=== PATIENT | male | born 1960 | race Caucasian/White ===

== ENCOUNTER 2023-07-23 14:17 | Inpatient (IN) | payer MEDICAID, SELFPAY ==
[2023-07-23] VITALS (50 sets, daily range): BP systolic 78–136; BP diastolic 44–92; PULSE 60–110; RESP 12–29; TEMP 35.8–36.6; O2SAT 97–100; BMI 30.4
--- NOTE | ~2023-07-23 | US_ITS ---
EXAMINATION: US right upper quadrant DATE: 07/24/2023 20:01 INDICATION: Low abdominal pain. Dilated gallbladder. TECHNIQUE: Multiple grayscale and Doppler ultrasound images of the abdomen were obtained. COMPARISON: CT abdomen and pelvis 07/23/2023 FINDINGS: The visualized portions of the head and body of the pancreas are normal. There is diffuse h epatic steatosis. There is normal flow in main portal vein. The gallbladder is normal in size and con tains sludge. No gallstones or gallbladder wall thickening. There is no sonographic Delaney sign. The common duct is normal and measures 6 mm. IMPRESSION: 1. Diffuse hepatic steatosis. Reviewed, dictated and finalized at location E.
--- NOTE | ~2023-07-23 | CT_ITS ---
EXAMINATION: CT abdomen pelvis w con DATE: 07/23/2023 16:05 INDICATION: Lower abdominal pain. Abnormal liver tests. TECHNIQUE: Computed tomography (CT) of the abdomen and pelvis was performed with 100 mL Omnipaque-350 intravenous contrast. Automated exposure control and iterative reconstruction technique were employe d. The dose-length product was 999.78 mGy-cm. COMPARISON: None FINDINGS: Lung bases are clear. Heart size is normal. No pericardial or pleural effusion. Diffuse hepatic steat osis. Gallbladder is dilated to 4.5 cm diameter but without evident gallbladder wall thickening or pe richolecystic inflammatory stranding to suggest acute cholecystitis. No intra or extra hepatic biliar y ductal dilation. Pancreas, spleen, bilateral adrenal glands and kidneys are normal. Bowels includin g the appendix are normal. Bladder is normal. No free intraperitoneal gas or fluid. No pathologically enlarged abdominal or pelvic lymphadenopathy. Severe lumbar spondylosis. 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 IMPRESSION: 1. No acute intra-abdominal/pelvic process. 2. Diffuse hepatic steatosis. Reviewed, dictated and finalized at location A.
--- NOTE | ~2023-07-23 | US_ITS ---
EXAMINATION: US venous doppler [facility] DATE: 07/24/2023 20:08 INDICATION: Lower limb swelling and edema. TECHNIQUE: Grayscale ultrasound images without and with compression and Doppler ultrasound images of the bilateral lower extremity veins were obtained. COMPARISON: None. FINDINGS: The visualized portions of right common femoral vein, profunda (deep) femoral vein, femoral vein, pop liteal vein, peroneal veins, posterior tibial veins, and greater saphenous vein outflow are patent. The visualized portions of left common femoral vein, profunda femoral vein, femoral vein, popliteal v ein, peroneal veins, posterior tibial veins, and greater saphenous vein outflow are patent. IMPRESSION: 1. No deep venous thrombosis. Reviewed, dictated and finalized at location E.
--- NOTE | ~2023-07-23 | XR_ITS ---
EXAMINATION: XR chest 1V portable DATE: 07/23/2023 15:24 INDICATION: Shortness of breath TECHNIQUE: frontal view of the chest was obtained. COMPARISON: None FINDINGS: The lungs are clear with no focal airspace opacities, pulmonary edema, pleural effusion or pneumothor ax. The cardiomediastinal silhouette is normal. Visualized bones and soft tissues are unremarkable. IMPRESSION: 1. No acute cardiopulmonary disease. Reviewed, dictated and finalized at location A.
--- NOTE | ~2023-07-23 | CT_ITS ---
EXAMINATION: CTA chest DATE: 08/06/2023 16:20 INDICATION: low BP in arms TECHNIQUE: Computed tomography (CT) of the chest was performed with 100 mL Omnipaque-350 intravenous contrast in the arterial phase. Automated exposure control and iterative reconstruction technique wer e employed. The dose-length product was 710.55 mGy-cm. COMPARISON: None. FINDINGS: CHEST: Thoracic aorta: No significant dilation. Mild atherosclerotic calcification. No dissection. No signif icant stenosis in the proximal branch vessels. Lung parenchyma and airways: Biapical scarring and mild emphysematous change. Mild dependent atelecta sis. Air cyst in the left upper lobe with mild asymmetric wall thickening and surrounding spiculation . Patent airways. Thoracic inlet, axillae and chest wall: No thyroid or soft tissue mass. No axillary lymphadenopathy. Mediastinum: No mass or lymphadenopathy. The pulmonary arteries are well opacified and there are no p ulmonary emboli. Heart and pericardium: Normal heart size. No pericardial effusion. Coronary artery calcifications: Absent. Pleura: No effusion or mass. Upper abdomen: Gallbladder hydrops. Thoracic bones: No acute osseous finding in the chest. IMPRESSION: No thoracic aortic aneurysm or dissection. No significant arterial stenosis in the proximal branch ve ssels. Left upper lobe air cyst with irregular wall thickening and spiculation, likely inflammatory. Recomme nd follow-up low-dose noncontrast CT in 3 months to evaluate for resolution/stability. Gallbladder hydrops. Reviewed, dictated and finalized at location K. IMPRESSION: No thoracic aortic aneurysm or dissection. No significant arterial stenosis in the proximal branch vessels. Left upper lobe air cyst with irregular wall thickening and spiculation, likely inflammatory. Recommend follow-up low-dose noncontrast CT in 3 months to evalu ate for resolution/stability. Gallbladder hydrops.
--- NOTE | ~2023-07-23 | CT_ITS ---
EXAMINATION: CTA LE DATE: 07/23/2023 19:15 INDICATION: Ecchymoses in the bilateral lower extremities TECHNIQUE: Computed tomographic angiography (CTA) of the bilateral lower extremities was performed wi th 150 mL Omnipaque 350 intravenous contrast. Automated exposure control and iterative reconstruction technique were employed. The dose-length product was 1068.71 mGy-cm. COMPARISON: None. FINDINGS: PELVIC VASCULATURE: Small amount of atherosclerotic plaque without hemodynamic significant stenosis in the bilateral comm on iliac, bilateral internal iliac and proximal right external iliac arteries. No evident plaque or s tenosis in the left external iliac artery. RIGHT LOWER EXTREMITY: Minimal nonhemodynamically significant plaque along the right common femoral, superficial femoral art eries. No evident atherosclerotic plaque in the more distal right popliteal artery. The right peronea l artery becomes atretic and is unable to be visualized beyond the distal two thirds of the lower leg . There is runoff in the right anterior tibial and posterior tibial arteries into the foot. LEFT LOWER EXTREMITY: Minimal plaque along the left common femoral, superficial femoral and popliteal arteries without hemo dynamically significant stenosis. The left anterior tibial artery becomes atretic and is unable to be visualized beyond the distal two thirds of the lower leg. There is runoff in the right posterior tib ial and peroneal arteries into the foot, the latter . Resupply the dorsalis pedis artery. Impression subcutaneous edema throughout the bilateral lower extremities. IMPRESSION: 1. Small amount of scattered atherosclerotic plaque in the arteries of the pelvis in the bilateral l ower limbs with no discrete hemodynamically significant stenosis. 2. The right peroneal and left anterior tibial arteries become atretic in the distal calves with 2 ve ssel runoff into both feet provided by the right anterior tibial and posterior tibial arteries and le ft posterior tibial and peroneal arteries. Reviewed, dictated and finalized at location A. IMPRESSION: 1. Small amount of scattered atherosclerotic plaque in the arteries of the pel vis in the bilateral lower limbs with no discrete hemodynamically significant s tenosis. 2. The right peroneal and left anterior tibial arteries become atretic in the d istal calves with 2 vessel runoff into both feet provided by the right anterior tibial and posterior tibial arteries and left posterior tibial and peroneal ar teries.
--- NOTE | ~2023-07-23 | US_ITS ---
EXAMINATION:US venous doppler [place] INDICATION:Bruising and discoloration TECHNIQUE: Multiple grayscale, color flow and Doppler images of the right and left lower extremity de ep venous systems were obtained and reviewed. COMPARISON:No prior studies for comparison. FINDINGS: The common femoral, superficial femoral and popliteal veins demonstrate normal respiratory variation, augmentation and compressibility. Color flow is also seen within the posterior tibial, pe roneal, greater saphenous and profunda veins. IMPRESSION: 1: No lower extremity deep venous thrombosis. Reviewed, dictated and finalized at location B.
--- NOTE | ~2023-07-23 | US_ITS ---
EXAMINATION: US arterial ankle brachial ind DATE: 08/02/2023 09:54 INDICATION: Bruising and discoloration to the bilateral lower extremities TECHNIQUE: Segmental pressures and plethysmographic and Doppler waveforms of the brachial and lower e xtremity arteries were obtained. COMPARISON: None. FINDINGS: Right and left brachial artery pressures of 114 mm Hg and 100 mm Hg, respectively, are concordant (no rmal difference <= 30 mmHg). The right ankle-brachial index (NIKA) is 1.16 (normal >= 0.9-1.0). The right great toe-brachial index (TBI) is 0.66 (normal >= 0.65). Arterial Doppler waveforms biphasic with brisk systolic upstrokes at both right posterior tibial and dorsalis pedis arteries. The left NIKA is 1.13. The left TBI is 0.57. Arterial Doppler waveforms are triphasic at the left post erior tibial and biphasic at the left dorsalis pedis artery, both with with brisk systolic upstrokes. IMPRESSION: 1. 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 No significant arterial occlusive disease to the left lower limb with normal right NIKA and TBI. Reviewed, dictated and finalized at location A. IMPRESSION: 1. 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 No significant arterial occlusive disease to the left lower limb with normal right NIKA and TBI.
--- NOTE | 2023-07-23 14:23 | ECG_ITS ---
Measurements Intervals [place] Rate: 85 P: 33 [place]: 174 QRS: 21 QRSD: 85 T: 9 QT: 382 QTc: 455 Interpretive Statements SINUS RHYTHM BASELINE ARTIFACT LOW QRS VOLTAGE IN PRECORDIAL LEADS [QRS DEFLECTION < 1.0 mV IN CHEST LEADS] NONSPECIFIC T-WAVE ABNORMALITY BORDERLINE ECG NO PREVIOUS ECG AVAILABLE FOR COMPARISON Electronically Signed On 07-24-2023 16:44:10 CDT by Philipp Rivera M.D.
--- NOTE | 2023-07-23 14:37 | ED.GENADULT ---
HPI - General Adult General Chief complaint: Shortness of Breath/Dyspnea Stated complaint: SOB x 1 week Time Seen by Provider: 07/23/23 14:25 Source: patient, EMS and RN notes reviewed Mode of arrival: EMS History of Present Illness HPI narrative: This is a 63 year old male who presents for evaluation of hypotension and shortness of breath. PAtient states he has been having shortness of breath for 1 week. He also noticed bruising both of his legs but he is unsure of cause. He denies any trauma. He reports bilateral lower leg pain. EMS reports that found patient hypotension with diminished breath sounds. He was given duoneb, magnesium 2 gram IV push. The reports improvement in patient lung sounds. THey report patient also had brief episode of bradycardia. They gave epi 10 mcg IV push and started the patient on IV fluids. Treatments prior to arrival: other (EMS given duo neb, magnesium 2 g IVP, epi 10 mcg IVP) Related Data Home Medications Medication Instructions Recorded Confirmed No Home Medications 07/23/23 07/23/23 Allergies Allergy/AdvReac Type Severity Reaction Status Date / Time No Known Allergies Allergy Verified 07/24/23 14:10 Review of Systems Constitutional: Constitutional: Reports weakness Cardiovascular: Cardiovascular: Denies syncope, Denies rapid heart rate, Denies irregular heart rhythm, Reports leg edema and Reports dyspnea Respiratory: Respiratory: Denies chest congestion, Denies hemoptysis, Denies excessive phlegm production and Reports dyspnea Gastrointestinal: Gastrointestinal: Denies abdominal pain, Denies hematochezia, Denies diarrhea and Denies vomiting Genitourinary: Genitourinary: Denies hematuria, Reports oliguria, Denies dysuria, Denies penile discharge and Denies testicular pain Musculoskeletal: Musculoskeletal: Denies joint swelling, Denies loss of height, Reports muscle cramps and Denies muscle weakness Neurologic: Denies syncope, Denies focal weakness and Denies weakness Hematologic/Lymphatic: Hematologic/Lymphatic: Reports easy bruising PMFSH Past Medical History Medical History (Updated 07/26/23 @ 14:24 by Maritza Naik MD) No significant past medical history Patient denies significant medical history. Tobacco dependence Surgical History Surgical History (Updated 07/23/23 @ 22:04 by Adeline Brooke PA-C) No history of previous surgery Family History Family History (Updated 07/23/23 @ 22:40 by Cyndi Castillo RN) Mother Diabetes mellitus Vascular disease Cerebrovascular accident Sibling Cancer Social History Social History (Updated 07/23/23 @ 22:05 by Adeline Brooke PA-C) Social History: Surrogate decision maker: Patient does not designate a surrogate decision maker at this time. Code status: Full code. Smoking packs per day: 1 Smoking cigarettes per day: 20.0 Years smoked: 45 Smoking pack-years: 45.00 Smoking status: Current every day smoker Tobacco type: cigarettes Alcohol intake: current Drinks per week: 15 Alcohol use details: Patient drinks about a 15 pack of beer a week. Substance use: current Substance use type: marijuana Lack of Transportation: YES Lack of Food: Never True Current Housing: I Have Housing Concerned About Future Housing: YES Difficulty Paying Gas/Electric Bills: YES Difficulty Paying for Meds: YES Currently Unemployed: YES Education: High School Diploma/GED Difficulty w/ Childcare or Family Care: No Additional living arrangements comments: Patient lives in his own home in [place]. Currently without utilities is my understanding. Additional occupation/education comments: Unemployed at this time. Spiritual care concerns: No Exam Const: General: no acute distress, alert and ill appearing Orientation/consciousness: patient oriented x3 Other: disheveled HENMT: Head: normal to inspection Eyes: Pupils: Equal, round and reactive pup
[2023-07-23 14:57] LABS: Basophils Absolute Auto 0.1 K/mm3 (0.0-0.1); Basophils Percent Auto 0.6 % (0.2-1.2); Eosinophils Percent Auto 0.3 % (0-4.4); Hematocrit 26.1 % (42.0-52.0); Hemoglobin 8.6 g/dL (14.0-18.0); Immature Granulocyte Absolute 0.12 K/mm3 (0.00-0.031); Immature Granulocyte Percent A 1.4 % (0-0.5); Lymphocytes Absolute Auto 1.23 K/mm3 (0.9-3.2); Lymphocytes Percent Auto 14.3 % (18.3-44.2); Mean Corpuscular Hemoglobin 30.2 pg (26-34); Mean Corpuscular Volume 91.6 fl (80-100); Monocytes Absolute Auto 0.4 K/mm3 (0.1-0.6); Monocytes Percent Auto 4.1 % (2.6-8.5); Neutrophils Absolute Auto 6.9 K/mm3 (1.3-6.7); Neutrophils Percent Auto 79.3 % (45.5-73.1); Nucleated Red Blood Cells Perc 0.2 % (0.0-0.2); Platelet Count Result 275 k/mm3 (150-375); Red Blood Count 2.85 M/mm3 (4.6-6.20); Red Cell Distribution Width 16.6 % (11.5-14.5); White Blood Count 8.6 K/mm3 (4.5-10.0)
[2023-07-23 14:58] LABS: Alveolar/Arterial O2 Gradient 21.6 mmHg; Base Excess ABG -4.8 mEq/l (+/-2.0); Carboxyhemoglobin 0.6 % THb (0-2.0); Fractional Inspired Oxygen 21 %; HCO3 ABG 16.4 mEq/l (22.0-26.0); Methemoglobin ABG 0.2 %THb (0-1.5); Oxygen Content ABG 13.2 %vol (16.0-22.0); Oxygen Saturation ABG 98.4 % (95.0-100.0); Oxyhemoglobin 96.6 % THb (90.0-100.0); PO2 ABG 104.5 mmHg (80.0-100.0); PO2 FiO2 Ratio Arterial Blood 4.98 %; Reduced Hemoglobin 2.6 %THb (0-5.0); Total Hemoglobin 9.6 g/dL (12.0-18.0)
[2023-07-23 15:01] LABS: PCO2 ABG 19.7 mmHg (35.0-45.0); pH ABG 7.537 (7.350-7.450)
[2023-07-23 15:02] LABS: Device ROOM AIR; Modified Allen's Test Pass; Site Drawn LEFT RADIAL
[2023-07-23 15:05] LABS: Creatine Kinase 41 U/L (55-170); Magnesium 3.3 mg/dL (1.6-2.3)
[2023-07-23 15:07] LABS: Ethanol < 10 mg/dL (<10)
[2023-07-23 15:09] LABS: Alanine Aminotransferase 20 U/L (6-50); Albumin Level 2.6 g/dL (3.5-5.1); Alkaline Phosphatase 79 U/L (38-126); Anion Gap 12 mmol/L (8-16); Aspartate Amino Transferase 36 U/L (17-59); Bilirubin,Total 5.5 mg/dL (0.2-1.3); Blood Urea Nitrogen 29 mg/dL (9-20); CRP 2.4 mg/dL (<1.0); Calcium 7.4 mg/dL (8.4-10.2); Carbon Dioxide 17 mmol/L (22-30); Chloride 101 mmol/L (98-107); Estimated Glomerular Filt Rate > 60; Glucose 120 mg/dL (65-110); INR 1.3; Lactic Acid Reflex 4.7 mmol/L (0.7-2.0); Partial Thromboplastin Time 23.6 SECONDS (22.3-36.8); Potassium 3.3 mmol/L (3.4-5.0); Prothrombin Time 16.8 Seconds (11.1-14.7); Sodium 130 mmol/L (137-145)
[2023-07-23 15:18] LABS: NT Pro B Type Natriuretic Pept 215 pg/mL (19.9-100); Troponin I < 0.012 ng/mL (0.000-0.034)
[2023-07-23] MEDS: LACTATED RINGERS 1,000 ML 999 ML IV CONT ×2 (15:18→15:25)
[2023-07-23] MEDS: Please add drug allergy info to patient profile. 1 EACH XX (15:19)
[2023-07-23 15:43] LABS: SARS-CoV-2 RNA PCR Negative (Negative)
[2023-07-23] MEDS: SODIUM CHLORIDE 0.9% IV 500 ML 999 ML IV CONT (16:37)
--- NOTE | 2023-07-23 17:06 | PC.NURSE ---
Patient had 300cc coffee ground emesis x 1. AL Lr and EDP Dr. Niak made aware.
[2023-07-23] MEDS: PANTOPRAZOLE SODIUM IV 40 MG VIAL 80 MG IV PUSH (17:20)
[2023-07-23] MEDS: OCTREOTIDE ACETATE 50 MCG/ML VIAL IV PUSH (17:33)
[2023-07-23] MEDS: PANTOPRAZOLE SODIUM IV 80 MG in SODIUM CHLORIDE 0.9% IV 500 ML 50 MG IV CONT (17:39)
[2023-07-23 17:54] LABS: Reflex Lactic Acid Yes or No Add Lactic
[2023-07-23 18:42] LABS: Lactic Acid 3.4 mmol/L (0.7-2.0)
[2023-07-23 19:14] LABS: Amphetamine Screen Urine Negative (Negative); Barbiturate Screen Urine Negative (Negative); Benzodiazepines Screen Urine Negative (Negative); Cannabinoid Screen Urine Negative (Negative); Cocaine Screen Urine Negative (Negative); Methadone Screen Urine Negative (Negative); Opiate Screen Urine Negative (Negative); Phencyclidine Screen Urine Negative (Negative)
[2023-07-23 19:40] LABS: Hemoglobin 7.3 g/dL (14.0-18.0)
[2023-07-23 19:44] LABS: Appearance Urine Clear (Clear); Bacteria Urine None Seen /hpf; Bilirubin Urine 2+ (Negative); Blood Urine 1+ (Negative); Color Urine Dark Yellow (Yellow); Glucose Urine UA Negative (Negative); Ketones Urine 1+ mg/dL (Negative); Leukocyte Esterase Ur Trace LEU/UL (Negative); Need Manual Microscopic Reviewed; Nitrate Urine Positive (Negative); Protein Urine Trace mg/dL (Negative); Squamous Epithelial Cell Urine None seen /hpf (Few); WBC Urine 0-5 /hpf
[2023-07-23 19:46] LABS: Specific Grav Ur 1.073 (1.001-1.035)
[2023-07-23 19:47] LABS: Add Urine Microscopic? YES
[2023-07-23 20:34] LABS: Hematocrit 23.8 % (42.0-52.0); Hemoglobin 7.9 g/dL (14.0-18.0)
[2023-07-23 20:54] LABS: Bilirubin Direct 1.8 mg/dL (0-0.3)
[2023-07-23 20:56] LABS: Bilirubin Indirect 2.2 mg/dL (0-1.1); Iron 46 ug/dL (49-181)
[2023-07-23 20:57] LABS: Lactate Dehydrogenase 207 U/L (120-246)
[2023-07-23 21:06] LABS: Percent Iron Saturation 21 % (20-50)
[2023-07-23 21:27] LABS: Thyroid Stimulating Hormone Reflex 0.464 uIU/mL (0.465-4.68)
--- NOTE | 2023-07-23 21:45 | ADMGEN ---
This patient, Scar Ray, was admitted to IMU Room 212-01 @ 2130 Patient/family oriented to hospital policies and general routines including ID bracelet, bed and alarms, visiting hours, pain management, procedures, bathroom and other care routines, personal items, smoking policy, room service/diet, and visiting hours. Information on how to activate the Rapid Response Team has been discussed. Patient/Family are encouraged to report perceived risks to care and to ask questions if they do not understand what they are told or what they should do.
--- NOTE | 2023-07-23 21:52 | PM.IMHP ---
H&P: HPI History of Present Illness Date/Time: 07/23/23 18:30 Chief Complaint: Shortness of breath. Narrative: This is a 63-year-old male smoker with no reported medical history presented to the emergency department via EMS from home for evaluation of shortness of breath. The patient provides the following history. He has not felt well for approximately 1 week with shortness of breath (even at rest), fatigue, generalized weakness, and lightheadedness upon standing. His symptoms started about a day after he woke up to significant bruising in the left upper thigh. He does not recall how he got the bruise and specifically denies fall, trauma, injury, etc.. As the week has gone on the bruise has extended down his left leg and bruising showed up in the right leg within the following days. He called EMS because he was so weak that he could hardly stand up and felt as though he was going to pass out. According to EMS reports, the patient was hypotensive with diminished lung sounds on their arrival. They administered a DuoNeb and gave him 2 g IV push of magnesium at which time he was briefly bradycardic. They than administered epinephrine 10 mcg IV push and started the patient on IV fluids. While in the ED he began to feel nauseated and had an episode of coffee-ground emesis. He denies fever, chills, sweats, headache, sinus congestion, sore throat, cough, chest pain, pleuritic pain, abdominal pain, epigastric pain, melena, hematochezia, diarrhea, and dysuria. No history of GERD or peptic ulcers. He drinks 15 beers a week. No significant caffeine use. He smokes marijuana on occasion but denies illicit substance abuse. No NSAID use. He denies taking any medications, prescribed or [id number]. Vital signs on arrival to the ED: Pulse 81, respiratory rate 16, blood pressure 82/59, pulse ox 100% room air, temperature 97.6?. He received 3 L IV crystalloids with improvement in his blood pressures. They have been fluctuating in the high 90s to low 100s systolic since that time. Labs were significant for a WBC count of 8.6, hemoglobin 8.6, platelet 275, PT 16.8, INR 1.3, PTT 23.6, sodium 130, potassium 3.3, carbon dioxide 17, BUN 29, lactic acid 4.7, total bili 5.5, CK 41. Urine was concentrated with 1+ ketones, 1+ blood, 2+ bilirubin, trace leukocyte esterase, positive nitrates, 0 to 5 WBC, and 6 to 10 RBC. Drug screen was negative in ethyl alcohol level was undetectable. He was negative for COVID. ABG showed a pH of 7.537, pCO2 19.7, PO2 104.5, bicarb 16.4. Chest x-ray showed no acute cardiopulmonary disease. CT of the abdomen and pelvis showed no acute intra-abdominal or pelvic process and diffuse hepatic steatosis. CTA of the bilateral lower extremities did not show any acute findings or hemodynamically significant stenosis. Hemoglobin dropped to 7.3 after he an episode of coffee-ground emesis and he is being transfuse 1 unit packed red blood cells. He is being admitted in this setting for close monitoring and GI consultation. Review of Systems Review of Systems: Twelve systems were reviewed and are negative except for as per HPI. [facility] Past Medical History Medical History (Updated 07/23/23 @ 22:13 by Adeline Brooke PA-C) No significant past medical history Patient denies significant medical history. Tobacco dependence Surgical History Surgical History (Updated 07/23/23 @ 22:04 by Adeline Brooke PA-C) No history of previous surgery Family History Family History (Updated 07/23/23 @ 22:40 by Cyndi Castillo RN) Mother Diabetes mellitus Vascular disease Cerebrovascular accident Sibling Cancer Social History Social History (Updated 07/23/23 @ 22:05 by Adeline Brooke PA-C) Social History: Surrogate decision maker: Patient does not designate a surrogate decision maker at this time. Code status: Full code. Smoking packs per day: 1 Smoking cigarettes per day: 20.0 Years smoked: 45 Smoking pack-years:
[2023-07-23 23:13] LABS: Anion Gap 10 mmol/L (8-16); Blood Urea Nitrogen 25 mg/dL (9-20); Calcium 7.1 mg/dL (8.4-10.2); Carbon Dioxide 17 mmol/L (22-30); Chloride 101 mmol/L (98-107); Estimated CRCL calculation 80 ml/min; Estimated Glomerular Filt Rate > 60; Glucose 143 mg/dL (65-110); Magnesium 2.6 mg/dL (1.6-2.3); Potassium 4.5 mmol/L (3.4-5.0); Sodium 128 mmol/L (137-145)
[2023-07-23] MEDS: SODIUM CHLORIDE 0.9% IV 1,000 ML 85 ML IV CONT (23:52)
[2023-07-24] VITALS (25 sets, daily range): BP systolic 82–139; BP diastolic 47–110; PULSE 64–98; RESP 12–20; TEMP 36.3–37.1; O2SAT 93–100
[2023-07-24 00:19] LABS: Procalcitonin 0.3 ng/mL
[2023-07-24] MEDS: cefTRIAXone 2 GM/NS 100 ML 2 GM/100 ML BAG IVPB (01:56)
[2023-07-24 03:04] LABS: Free T4 Free Thyroxine Reflex 1.38 ng/dL (0.78-2.19)
[2023-07-24 04:15] LABS: Total Triiodothyronine (T3) 0.62 NG/ML (0.97-1.69)
[2023-07-24 04:35] LABS: Basophils Percent Auto 0.1 % (0.2-1.2); Hematocrit 26.8 % (42.0-52.0); Immature Granulocyte Absolute 0.07 K/mm3 (0.00-0.031); Lymphocytes Absolute Auto 0.95 K/mm3 (0.9-3.2); Lymphocytes Percent Auto 13.2 % (18.3-44.2); Mean Corpuscular HGB Conc 33.6 g/dl (32-36); Mean Corpuscular Hemoglobin 30.5 pg (26-34); Mean Corpuscular Volume 90.8 fl (80-100); Mean Platelet Volume 10.2 fl (7.4-10.4); Monocytes Absolute Auto 0.4 K/mm3 (0.1-0.6); Monocytes Percent Auto 5.6 % (2.6-8.5); Neutrophils Absolute Auto 5.8 K/mm3 (1.3-6.7); Neutrophils Percent Auto 80.1 % (45.5-73.1); Nucleated Red Blood Cells Perc 0.3 % (0.0-0.2); Platelet Count Result 243 k/mm3 (150-375); Red Blood Count 2.95 M/mm3 (4.6-6.20); Red Cell Distribution Width 16.5 % (11.5-14.5); White Blood Count 7.2 K/mm3 (4.5-10.0)
[2023-07-24 04:47] LABS: Lactic Acid Reflex 1.7 mmol/L (0.7-2.0)
[2023-07-24 04:57] LABS: Alanine Aminotransferase 17 U/L (6-50); Albumin Level 2.5 g/dL (3.5-5.1); Alkaline Phosphatase 67 U/L (38-126); Anion Gap 7 mmol/L (8-16); Aspartate Amino Transferase 34 U/L (17-59); Blood Urea Nitrogen 24 mg/dL (9-20); CRP 3.1 mg/dL (<1.0); Calcium 6.9 mg/dL (8.4-10.2); Carbon Dioxide 18 mmol/L (22-30); Chloride 104 mmol/L (98-107); Estimated CRCL calculation 80 ml/min; Estimated Glomerular Filt Rate > 60; Glucose 113 mg/dL (65-110); Magnesium 2.8 mg/dL (1.6-2.3); Sodium 129 mmol/L (137-145)
[2023-07-24] MEDS: ALBUMIN HUMAN 25% 25 GM/100 ML 100 ML IVPB (05:27)
[2023-07-24 05:32] LABS: Creatine Kinase 136 U/L (55-170)
[2023-07-24] MEDS: PANTOPRAZOLE SODIUM IV 80 MG in SODIUM CHLORIDE 0.9% IV 500 ML 50 MG IV CONT (05:42)
[2023-07-24] MEDS: THIAMINE HCL 100 MG TABLET PO (08:58)
[2023-07-24] MEDS: FOLIC ACID 1 MG TABLET PO (08:58)
[2023-07-24] MEDS: SODIUM CHLORIDE 0.9% IV 1,000 ML 500 ML IV CONT (08:58)
--- NOTE | 2023-07-24 09:46 | PM.IMPN ---
Progress Note: A&P Assessment and Plan (1) Hematemesis: Code(s): K92.0 - Hematemesis Status: Acute Assessment and Plan: Patient presents emergency room with complaints of shortness of breath. He had an episode of nausea and vomiting x1 with coffee-ground emesis. Hemoglobin 8.6 on admission and dropped to 7.3. He was hypotensive with lactic acidosis. He was given IV fluids. His baseline hemoglobin is unknown. No further episodes of nausea and vomiting. He was started on Protonix and octreotide. Will consult GI for possibly EGD. He is currently NPO. (2) Hypotension: Code(s): I95.9 - Hypotension, unspecified Status: Acute Assessment and Plan: Patient was hypotensive on admission. He had some improvement possibly related to the transfusion. Patient's again become hypotensive. MAP has been okay. He is on IV fluids. Repeat H&H is pending. Fluid bolus has been ordered. (3) Lactic acidosis: Code(s): E87.20 - Acidosis, unspecified Status: Acute Assessment and Plan: Lactic acid was 4.7 on admission. Lactic has trended downward to normal. Etiology unclear. Cultures pending. Currently on Rocephin. Follow-up on cultures. (4) Acute blood loss anemia: Code(s): D62 - Acute posthemorrhagic anemia Status: Acute Assessment and Plan: Baseline hemoglobin unclear. Patient presumably has no medical problems and no baseline hemoglobin to compare. Hemoglobin was 8.6 and dropped to 7.3 requiring transfusion. Iron studies with low iron and low TIBC and normal TSat and ferritin to suggest acute blood loss. Some of the blood loss related to the bruising to the legs and possibly from GI bleed. B12 low end of normal and folate frankly low at 2.0. Folate ordered. Suspect related to malnutrition. Replace B12. Serial HH and transfuse as needed (5) Electrolyte abnormality: Code(s): E87.8 - Other disorders of electrolyte and fluid balance, not elsewhere classified Status: Acute Assessment and Plan: Sodium low at 130 and about this and this morning. He has a non gap metabolic acidosis which could be related to lactic acidosis. He also had ketones in his urine so would consider malnutrition with ketosis. Albumin with is low as well consistent with this. He has hypocalcemia but normal if corrected for the low albumin. Potassium was low but now normal. BUN mildly elevated could be related to dehydration and/or from blood in GI tract. Monitor. Consider bicarb if not improved (6) Hyperbilirubinemia: Code(s): E80.6 - Other disorders of bilirubin metabolism Status: Acute Assessment and Plan: TBili 5.5 evenly split b/w direct and indirect. CT scan showing that the gallbladder is dilated to 4.5 cm but no evidence of gallbladder wall thickening or pericholecystic inflammatory stranding. The intra and extrahepatic biliary ducts are not dilated. Suspect hyperbilirubinemia related to blood breakdown from the hemorrhaging into the legs. Follow. Check liver quadrant ultrasound (7) Bilateral lower extremity edema: Code(s): R60.0 - Localized edema Status: Acute Assessment and Plan: Patient with edema and bruising extensively in the bilateral lower extremities. Patient denies any trauma to the area. CT of the abdomen pelvis with contrast did not show any concerning vascular abnormalities. Lower extremity CTA showed no discrete hemodynamically significant stenosis. He did have atretic right peroneal and left anterior tibial arteries in the distal calves with 2 vessel runoff into both feet. He will need aspirin and Lipitor. He was educated about the benefits of smoking cessation. TCK normal. Etiology of the edema or and bruising heart is unclear. Follow up on echo results. Follow-up on lower extremity venous Dopplers. (8) Tobacco dependence: Code(s): F17.200 - Nicotine dependence, unspecified, uncomplicated S
[2023-07-24] MEDS: PERFLUTREN LIPID MICROSPHERES 1.5 ML VIAL DILUTED TO 10 ML TOTAL VOLUME IV PUSH (10:15)
[2023-07-24 10:32] LABS: Hemoglobin 7.8 g/dL (14.0-18.0)
[2023-07-24] MEDS: CYANOCOBALAMIN INJ 1,000 MCG/ML VIAL 1000 MCG IM (11:26)
[2023-07-24] MEDS: SODIUM CHLORIDE 0.9% IV 1,000 ML 85 ML IV CONT (12:50)
[2023-07-24] MEDS: LACTATED RINGERS 1,000 ML 150 ML IV CONT (14:11)
--- NOTE | 2023-07-24 14:15 | WPDGICN ---
Assessment and Plan Assessment and plan (1) Hematemesis: Code(s): K92.0 - Hematemesis Status: Acute Assessment and Plan: Patient experienced hematemesis on presentation to the emergency room. EGD will be performed to evaluate more thoroughly. Patient currently maintained on pantoprazole. Hemoglobin has been stable but is decline with the value of 7.8 at present. (2) Anemia: Code(s): D64.9 - Anemia, unspecified Status: Acute Assessment and Plan: Anemia that is normochromic normocytic etiology unclear. Hemolysis cannot be excluded given the elevated bilirubin. EGD will be performed. Consider Hematology evaluation. (3) Alcoholism: Code(s): F10.20 - Alcohol dependence, uncomplicated Status: Acute Assessment and Plan: Alcohol dependence noted. Patient may be reliant on alcohol use continue to monitor watch for signs of withdrawal. (4) Hyperbilirubinemia: Code(s): E80.6 - Other disorders of bilirubin metabolism Status: Acute Assessment and Plan: Elavil a bilirubin appears nonspecific. No signs of obstruction. Other liver parameters are normal. Etiology is unclear but need to exclude hemolysis. Will continue monitor follow closely. (5) Ecchymosis: Code(s): R58 - Hemorrhage, not elsewhere classified Status: Acute Assessment and Plan: Ecchymosis on both legs patient gives no history of trauma but this may account for some degree of his anemia. GI Consult Note Consult date/time: 07/24/23 14:15 Reason for consult: hematemesis. HPI: Scar Ray is a 63 year old male I am asked to see at the request of the hospitalist service. Patient apparently has been increasing malaise over the last week or 2 because of shortness of breath went to the emergency room. In the emergency room noted to have significant ecchymosis across the lower extremities. While in the emergency room he had set of bout of hematemesis vomited coffee-ground reddish material emesis of about 300cc. For this reason EGD is requested. Patient is noted to have a stable anemia. Patient was noted to have elevated bilirubin on presentation as well. Other transaminases and liver tests were found to be normal. Ultrasound reveals no gallstones nor indication for obstruction. Patient denies any prior history of ulcer disease. He has never previously had hematemesis. He denies abdominal pain. He denies any trauma to his lower extremities. Family history is noncontributory. Review of Systems Review of Systems: Review of systems noncontributory. [facility] Past Medical History Medical History (Updated 07/24/23 @ 14:18 by Hollis De La Garza MD) No significant past medical history Patient denies significant medical history. Tobacco dependence Surgical History Surgical History (Updated 07/23/23 @ 22:04 by Adeline Brooke PA-C) No history of previous surgery Family History Family History (Updated 07/23/23 @ 22:40 by Cyndi Castillo RN) Mother Diabetes mellitus Vascular disease Cerebrovascular accident Sibling Cancer Social History Social History (Updated 07/23/23 @ 22:05 by Adeline Brooke PA-C) Social History: Surrogate decision maker: Patient does not designate a surrogate decision maker at this time. Code status: Full code. Smoking packs per day: 1 Smoking cigarettes per day: 20.0 Years smoked: 45 Smoking pack-years: 45.00 Smoking status: Current every day smoker Tobacco type: cigarettes Alcohol intake: current Drinks per week: 15 Alcohol use details: Patient drinks about a 15 pack of beer a week. Substance use: current Substance use type: marijuana Lack of Transportation: YES Lack of Food: Never True Current Housing: I Have Housing Concerned About Future Housing: YES Difficulty Paying Gas/Electric Bills: YES Difficulty Paying for Meds: YES Currently Unemployed: YES Ed
--- NOTE | 2023-07-24 14:34 | WPDANESEPPF ---
Anes - Initial Pre Proc Eval Procedure: Operation Date: 07/24/23 15:30 Proposed Procedures p Esophagogastroduodenoscopy - Hollis De La Garza MD Date/Time: 07/24/23 14:35 Surgeon: Jeff Martin MD Pre Op Diagnosis: hemetmesis, Anemia Patient Data Age: 63 Gender: M Height: 1.73 m Weight: 85.6 kg Last Vital Signs Temp 97.7 F 07/24/23 14:14 Pulse 71 07/24/23 14:14 Resp 18 07/24/23 14:14 BP 100/59 L 07/24/23 14:14 Pulse Ox 93 07/24/23 14:14 O2 Del Method Room Air 07/24/23 14:14 Allergies Allergy/AdvReac Type Severity Reaction Status Date / Time No Known Allergies Allergy Verified 07/24/23 14:10 Home Medications Medication Instructions Recorded Confirmed Type No Home Medications 07/23/23 07/23/23 History Laboratory Tests 07/23/23 07/23/23 07/23/23 14:45 14:54 17:36 WBC 8.6 K/mm3 (4.5-10.0) RBC 2.85 L M/mm3 (4.6-6.20) Hgb 8.6 L g/dL (14.0-18.0) Hct 26.1 L % (42.0-52.0) MCV 91.6 fl (80-100) MCH 30.2 pg (26-34) MCHC 33.0 g/dl (32-36) RDW 16.6 H % (11.5-14.5) Plt Count 275 k/mm3 (150-375) MPV 10.0 fl (7.4-10.4) Immature Gran % (Auto) 1.4 H % (0-0.5) Neut % (Auto) 79.3 H % (45.5-73.1) Lymph % (Auto) 14.3 L % (18.3-44.2) [place] % (Auto) 4.1 % (2.6-8.5) Eos % (Auto) 0.3 % (0-4.4) Baso % (Auto) 0.6 % (0.2-1.2) Lymph # (Auto) 1.23 K/mm3 (0.9-3.2) [place] # (Auto) 0.4 K/mm3 (0.1-0.6) Eos # (Auto) 0.0 K/mm3 (0-0.3) Baso # (Auto) 0.1 K/mm3 (0.0-0.1) Abs Immat Gran (auto) 0.12 H K/mm3 (0.00-0.031) Absolute Neuts (auto) 6.9 H K/mm3 (1.3-6.7) Absolute Nucleated RBC 0.0 K/mm3 (0.0-0.012) Nucleated RBC % 0.2 % (0.0-0.2) Haptoglobin PT 16.8 H Seconds (11.1-14.7) INR 1.3 APTT 23.6 SECONDS (22.3-36.8) Puncture Site Left radial ABG pH 7.537 H* (7.350-7.450) ABG pCO2 19.7 L* mmHg (35.0-45.0) ABG pO2 104.5 H mmHg (80.0-100.0) ABG PO2/FiO2 Ratio 4.98 % ABG HCO3 16.4 L mEq/l (22.0-26.0) ABG O2 Saturation 98.4 % (95.0-100.0) ABG O2 Content 13.2 L %vol (16.0-22.0) ABG Base Excess -4.8 mEq/l (+/-2.0) A-a Gradient 21.6 mmHg Oxyhemoglobin 96.6 % THb (90.0-100.0) Carboxyhemoglobin 0.6 % THb (0-2.0) Methemoglobin 0.2 %THb (0-1.5) Reduced Hemoglobin 2.6 %THb (0-5.0) Total Hemoglobin 9.6 L g/dL (12.0-18.0) O2 Delivery Device Room air O2 Liters/Min 0.0 LPM FiO2 21 % Sodium 130 L mmol/L (137-145) Potassium 3.3 L mmol/L (3.4-5.0) Chloride 101 mmol/L (98-107) Carbon Dioxide 17 L mmol/L (22-30) Anion Gap 12 mmol/L (8-16) BUN 29 H mg/dL (9-20) Creatinine 0.80 mg/dL (0.7-1.3) Estim Creat Clear Calc Not Reportable Estimated GFR > 60 (59 - ) Glucose 120 H mg/dL (65-110) Lactic Acid 4.7 H* mmol/L (0.7-2.0) Calcium 7.4 L mg/dL (8.4-10.2) Magnesium 3.3 H mg/dL (1.6-2.3) Iron TIBC % Saturation Ferritin Total Bilirubin 5.5 H mg/dL (0.2-1.3) Direct Bilirubin Indirect Bilirubin AST 36 U/L (17-59) ALT 20 U/L (6-50) Alkaline Phosphatase 79 U/L (38-126) Lactate Dehydrogenase Total Creatine Kinase 41 L U/L (55-170) Troponin I < 0.012 ng/mL (0.000-0.034) C-Reactive Protein 2.4 H mg/dL (<1.0) NT-Pro-B Natriuret Pep 215 H pg/mL (19.9-100) Total Protein
--- NOTE | 2023-07-24 14:42 | IVDEFINITY ---
Prior to administration of IV Definity the patient was educated on the risks and benefits of the imaging enhancing agent including potential adverse side effects. The patient verbalized understanding. Allergies were verified. No exclusion criteria were identified and at least one of the following inclusion criteria were met: 1) physician request, 2) patient technically difficult to image (per the [place] [employer]chocardi[employer] guidelines of two or more segments not discernable within the apical view), or 3) questionable left ventricular function. ?
[2023-07-24 18:35] LABS: Hematocrit 28.4 % (42.0-52.0); Hemoglobin 8.8 g/dL (14.0-18.0)
[2023-07-24] MEDS: PANTOPRAZOLE SODIUM IV 40 MG VIAL IV PUSH (21:06)
--- NOTE | 2023-07-24 22:22 | ECHO_ITS ---
Patient Info Name: Scar Ray Age: 63 years : 1960 Gender: Male Ht: 68 in Wt: 188 lbs BSA: 2.04 m2 HR: 66 bpm BP: 85 / 51 mmHg Heart Rhythm: Sinus Rhythm Technical Quality: Fair Exam Date: 07/24/2023 9:36 AM Exam Location: [facility] Patient Status: Inpatient Admit Date: 07/23/2023 Staff Ordering Physician: Adeline Brooke PA-C Energy Project Engineer: Gita Roberts RDCS Attending Provider: Ruben Martin MD Referring Physician: Mendy DE LA ROSA; Exam Type: CA echo dop color flow w con Study Info Indications - Edema R06.02 - Shortness of breath Complete two-dimensional, color flow and Doppler transthoracic echocardiogram is performed with contrast to opacify the left ventricle and to improve the deliniation of the left ventricle endocardial borders. Contrast/Agitated Saline Contrast/Ag. Saline: Definity Amount: 2.00 ml Administered By: Gita Roberts RDCS Existing IV Access: Yes IV Access Condition: patent with no signs of infiltration Summary 1. Left ventricular chamber dimension is normal. 2. Left ventricular systolic function is hyperdynamic, estimated at >70%. 3. There is no increased left ventricular wall thickness. 4. The left ventricular diastolic function is normal. 5. Left atrial chamber dimension is mildly enlarged. 6. There is no aortic valve stenosis. 7. There is trace mitral valve regurgitation. 8. There is mild tricuspid valve regurgitation. 9. No pulmonary hypertension, estimated pulmonary arterial systolic pressure is 30 mmHg. Left Ventricle Left ventricular chamber dimension is normal. Left ventricular systolic function is hyperdynamic, estimated at >70%. There is no increased left ventricular wall thickness. The left ventricular diastolic function is normal. Right Ventricle Right ventricular chamber dimension is normal. Right ventricular systolic function is normal. Left Atria Left atrial chamber dimension is mildly enlarged. Right Atria Right atrial chamber dimension is normal. Aortic Valve The aortic valve is trileaflet. There is no aortic valve stenosis. There is no aortic valve regurgitation. Pulmonic Valve The pulmonic valve is not well visualized. There is trace pulmonic regurgitation. Mitral Valve The mitral valve has normal leaflets. There is trace mitral valve regurgitation. Tricuspid Valve The tricuspid valve leaflets are normal. There is mild tricuspid valve regurgitation. No pulmonary hypertension, estimated pulmonary arterial systolic pressure is 30 mmHg. Pericardium/Pleural The pericardium appears normal. There is trivial pericardial effusion. Aorta The aortic root size at the sinus of Valsalva is normal. The prox ascending aorta size is normal. There is mild aortic atherosclerosis. Left Ventricular Outflow Tract Name Value Normal LVOT 2D LVOT Diameter 2.04 cm LVOT Doppler LVOT Peak Gradient 7 mmHg LVOT Mean Gradient 3 mmHg LVOT VTI 25.13 cm LVOT VTI/AV VTI Ratio 0.80 LVOT Stroke Volume 82.48 ml LVOT
--- NOTE | 2023-07-24 22:39 | P.PNCROSS_ITS ---
Event Note Event Note Event Note: Received a call from the patient's nurse. He has Gram-positive cocci in cluste rs which were isolated from and anaerobic bottle in 1 set of blood cultures. Chart reviewed. Suspect contaminant however will give a 1 time dose of 1500 mg vancomycin pending identification and MRSA swab.
[2023-07-24] MEDS: VANCOMYCIN 1,250 MG/NS 250 ML 1,250 MG/250 ML BAG 166.67 MG IVPB (23:35)
[2023-07-25] VITALS (17 sets, daily range): BP systolic 97–116; BP diastolic 46–57; PULSE 66–96; RESP 18–22; TEMP 35.7–36.7; O2SAT 91–97
[2023-07-25] MEDS: VANCOMYCIN 1,000 MG/NS 250 ML 1,000 MG/250 ML BAG 250 MG IVPB (01:11)
[2023-07-25] MEDS: cefTRIAXone 2 GM/NS 100 ML 2 GM/100 ML BAG IVPB (02:11)
[2023-07-25 05:19] LABS: Basophils Percent Auto 0.8 % (0.2-1.2); Eosinophils Percent Auto 0.8 % (0-4.4); Hematocrit 22.9 % (42.0-52.0); Hemoglobin 7.6 g/dL (14.0-18.0); Immature Granulocyte Absolute 0.04 K/mm3 (0.00-0.031); Immature Granulocyte Percent A 0.8 % (0-0.5); Lymphocytes Absolute Auto 1.18 K/mm3 (0.9-3.2); Lymphocytes Percent Auto 22.5 % (18.3-44.2); Mean Corpuscular HGB Conc 33.2 g/dl (32-36); Mean Corpuscular Hemoglobin 30.6 pg (26-34); Mean Corpuscular Volume 92.3 fl (80-100); Mean Platelet Volume 9.9 fl (7.4-10.4); Monocytes Absolute Auto 0.2 K/mm3 (0.1-0.6); Neutrophils Absolute Auto 3.7 K/mm3 (1.3-6.7); Neutrophils Percent Auto 71.1 % (45.5-73.1); Nucleated Red Blood Cells Perc 0.4 % (0.0-0.2); Platelet Count Result 204 k/mm3 (150-375); Red Blood Count 2.48 M/mm3 (4.6-6.20); White Blood Count 5.2 K/mm3 (4.5-10.0)
[2023-07-25 05:38] LABS: Alanine Aminotransferase 16 U/L (6-50); Albumin Level 2.2 g/dL (3.5-5.1); Alkaline Phosphatase 54 U/L (38-126); Anion Gap 6 mmol/L (8-16); Aspartate Amino Transferase 33 U/L (17-59); Bilirubin,Total 4.2 mg/dL (0.2-1.3); Blood Urea Nitrogen 18 mg/dL (9-20); CRP 2.5 mg/dL (<1.0); Calcium 6.6 mg/dL (8.4-10.2); Carbon Dioxide 19 mmol/L (22-30); Chloride 109 mmol/L (98-107); Creatine Kinase 110 U/L (55-170); Estimated CRCL calculation 102 ml/min; Estimated Glomerular Filt Rate > 60; Glucose 78 mg/dL (65-110); Magnesium 2.4 mg/dL (1.6-2.3); Potassium 3.2 mmol/L (3.4-5.0); Sodium 134 mmol/L (137-145)
[2023-07-25] MEDS: SODIUM CHLORIDE 0.9% IV 1,000 ML 85 ML IV CONT (08:15)
[2023-07-25] MEDS: FOLIC ACID 1 MG TABLET PO (09:05)
[2023-07-25] MEDS: PANTOPRAZOLE SODIUM IV 40 MG VIAL IV PUSH ×2 (09:05→20:29)
[2023-07-25] MEDS: THIAMINE HCL 100 MG TABLET PO (09:05)
[2023-07-25] MEDS: CYANOCOBALAMIN 1,000 MCG TABLET 1000 MCG PO (09:05)
--- NOTE | 2023-07-25 09:05 | WPDANESPN ---
Anes - Prog Note Post-Op Date/Time: 07/25/23 09:05 Cardiovascular status: normal Respiratory status: normal Airway patency: baseline Mental status: baseline Post-Op hydration status: normal Vital Signs: Last Vital Signs Temp 35.7 C L 07/25/23 07:58 Pulse 83 07/25/23 07:58 Resp 20 07/25/23 07:58 BP 109/52 L 07/25/23 07:58 Pulse Ox 92 07/25/23 07:58 O2 Del Method Room Air 07/25/23 04:00 Pain Score (VAS): 11/18 I/O: Intake & Output 07/24/23 07/25/23 07/25/23 23:59 07:59 15:59 Intake Total 840 600 Output Total 450 950 Balance 390 -350 Laboratory Tests 07/25/23 04:50 07/25/23 04:50 07/24/23 07/24/23 07/25/23 10:24 18:05 04:50 WBC 5.2 RBC 2.48 L Hgb 7.8 L 8.8 L 7.6 L Hct 24.0 L 28.4 L 22.9 L MCV 92.3 MCH 30.6 MCHC 33.2 RDW 17.0 H Plt Count 204 MPV 9.9 Immature Gran % (Auto) 0.8 H Neut % (Auto) 71.1 Lymph % (Auto) 22.5 [place] % (Auto) 4.0 Eos % (Auto) 0.8 Baso % (Auto) 0.8 Lymph # (Auto) 1.18 [place] # (Auto) 0.2 Eos # (Auto) 0.0 Baso # (Auto) 0.0 Abs Immat Gran (auto) 0.04 H Absolute Neuts (auto) 3.7 Absolute Nucleated RBC 0.0 Nucleated RBC % 0.4 H Sodium 134 L Potassium 3.2 L Chloride 109 H Carbon Dioxide 19 L Anion Gap 6 L BUN 18 Creatinine 0.70 Estim Creat Clear Calc 102 Estimated GFR > 60 Glucose 78 Calcium 6.6 L Phosphorus 2.0 L Magnesium 2.4 H Total Bilirubin 4.2 H AST 33 ALT 16 Alkaline Phosphatase 54 Total Creatine Kinase 110 C-Reactive Protein 2.5 H Total Protein 5.0 L Albumin 2.2 L Microbiology 07/23/23 14:45 Blood Blood Culture - Preliminary Gram positive cocci cluster is 07/23/23 14:45 Blood Blood Culture - Preliminary Post-procedural complaints: none Patient Feedback: Patient satisfied with anesthetic care.
[2023-07-25] MEDS: POTASSIUM CHLORIDE 20 MEQ PACKET (FOR LIQUID) 40 MEQ PO (09:06)
[2023-07-25] MEDS: POTASSIUM/PHOSPHORUS/SODIUM 1.5 GM PACKET 1 PACKET PO (09:06)
[2023-07-25 10:45] LABS: Hematocrit 26.1 % (42.0-52.0); Hemoglobin 8.4 g/dL (14.0-18.0)
--- NOTE | 2023-07-25 14:37 | WPDGIPROGNO ---
Progress Note: A&P Assessment and Plan (1) Gastritis: Code(s): K29.70 - Gastritis, unspecified, without bleeding Status: Acute Assessment and Plan: Patient with gastritis and esophagitis on recent endoscopy. He also had superficial ulcers in the antral area of the stomach. Histology pending. Grossly appears benign. Plan to keep on PPI therapy advance to bland diet. Follow-up EGD suggested in 2 months. (2) Ulcerative esophagitis: Code(s): K22.10 - Ulcer of esophagus without bleeding Status: Acute (3) Ecchymosis: Code(s): R58 - Hemorrhage, not elsewhere classified Status: Acute Assessment and Plan: X chemosis likely contributes to patient's anemia. (4) Alcoholism: Code(s): F10.20 - Alcohol dependence, uncomplicated Status: Acute (5) Hyperbilirubinemia: Code(s): E80.6 - Other disorders of bilirubin metabolism Status: Acute Assessment and Plan: Elevated bilirubin with normal LFTs. Concern over possible hemolysis. Need to follow this. Consider Hematology evaluation. Subjective Date/time seen: 07/25/23 14:37 Interval history: Patient alert more comfortable this morning. Tolerating diet. He states he is not very hungry. Denies abdominal pain but denies any bleeding. Review of Systems Review of Systems: Review of systems noncontributory. Exam Narrative: Physical exam reveals patient be alert comfortable rest he is anicteric. Lungs are clear. Heart without murmur. Abdomen bowel sounds present soft nontender. Objective Data Vital Signs Vital Signs: Vital Signs - 24 hr 07/24/23 15:30 07/24/23 15:40 07/24/23 15:50 Temperature Pulse Rate 66 66 68 Pulse Rate [Bilateral Pedal (Dorsalis Pedis)] Respiratory Rate 16 16 18 Blood Pressure 139/110 H 102/55 L 101/55 L Pulse Oximetry 100 100 100 Oxygen Delivery Room Air Room Air Room Air 07/24/23 16:09 07/24/23 16:00 07/24/23 16:00 Temperature 97.8 F Pulse Rate 98 66 Pulse Rate [Bilateral Pedal (Dorsalis Pedis)] Respiratory Rate 20 Blood Pressure 103/66 Pulse Oximetry 93 Oxygen Delivery Room Air 07/24/23 18:00 07/24/23 18:59 07/24/23 21:10 Temperature 97.6 F Pulse Rate 85 72 Pulse Rate [Bilateral Pedal (Dorsalis Pedis)] Respiratory Rate 18 Blood Pressure 84/47 L 97/49 L Pulse Oximetry 93 Oxygen Delivery 07/24/23 20:00 07/24/23 20:00 07/24/23 22:00 Temperature Pulse Rate 69 74 Pulse Rate [Bilateral Pedal (Dorsalis Pedis)] Respiratory Rate Blood Pressure Pulse Oximetry 93 Oxygen Delivery Room Air 07/25/23 00:00 07/25/23 00:00 07/25/23 00:00 Temperature 97.6 F Pulse Rate 82 70 Pulse Rate [Bilateral Pedal (Dorsalis Pedis)] Respiratory Rate 18 Blood Pressure 98/46 L Pulse Oximetry 92 92 Oxygen Delivery Room Air 07/25/23 02:47 07/25/23 02:00 07/25/23 04:00 Temperature 97.5 F L Pulse Rate 75 69 66 Pulse Rate [Bilateral Pedal (Dorsalis Pedis)] Respiratory Rate 18 Blood Pressure 97/57 L Pulse Oximetry 93 Oxygen Delivery 07/25/23 04:00 07/25/23 06:00 07/25/23 07:58 Temperature 96.3 F L Pulse Rate 67 83 Pulse Rate [Bilateral Pedal (Dorsalis Pedis)] Respiratory Rate 20 Blood Pressure 109/52 L Pulse Oximetry 93 92 Oxygen Delivery Room Air 07/25/23 08:00 07/25/23 08:00 07/25/23 10:00 Temperature Pulse Rate 96 90 Pulse Rate [Bilateral Pedal (Dorsalis Pedis)] 83 Respiratory Rate Blood Pressure Pulse Oximetry Oxygen Delivery 07/25/23 11:44 07/25/23 12:00 07/25/23 13:28 Temperature 96.2 F L Pulse Rate 92 91 Pulse Rate [Bilateral Pedal (Dorsalis Pedis)] Respiratory Rate 22 H Blood Pressure 116/56 L Pulse Oximetry 97 91 Oxygen Delivery Room Air Intake/Output Intake/Output: Intake & Output 07/22/23 07/23/23 07/24/23 07/25/23 23:59 23:59 23:59 23:59 Intake Total 3705 5663 2440 Outp
--- NOTE | 2023-07-25 16:24 | PM.IMPN ---
Progress Note: A&P Assessment and Plan (1) Ulcerative esophagitis: Code(s): K22.10 - Ulcer of esophagus without bleeding Status: Acute Assessment and Plan: Patient presents emergency room with complaints of shortness of breath. He had an episode of nausea and vomiting x1 with coffee-ground emesis in the ED. Hemoglobin 8.6 on admission and dropped to 7.3. He was hypotensive with lactic acidosis. He was given IV fluids and 1U PRBC. His baseline hemoglobin is unknown. No further episodes of nausea and vomiting. He was started on Protonix and octreotide. GI consulted and patient underwent EGD 07/24 showing severe ulcerative esophagitis, diffuse gastritis and several superficial gastric ulcers. Biopsy taken. Continue Protonix. Appreciate GI input. (2) Hypotension: Code(s): I95.9 - Hypotension, unspecified Status: Acute Assessment and Plan: Patient was hypotensive on admission. He had some improvement possibly related to the transfusion. Patient's again become hypotensive. MAP has been okay. Fluid bolus given. BP improved. Follow. Stop IV fluids today. (3) Lactic acidosis: Code(s): E87.20 - Acidosis, unspecified Status: Acute Assessment and Plan: Lactic acid was 4.7 on admission. Lactic has trended downward to normal. UA noted. UCx pending BCx growing GPC in clusters from anaerobic bottle only. Currently on Rocephin. Vanco added over night and continued but PharmD ID recommended abx be stopped and resumed if Cx lori positive. Contineu Rocephiin. Follow-up on cultures. (4) Bacteremia: Code(s): R78.81 - Bacteremia Status: Acute Assessment and Plan: As above (5) Acute blood loss anemia: Code(s): D62 - Acute posthemorrhagic anemia Status: Acute Assessment and Plan: Baseline hemoglobin unclear. Patient presumably has no medical problems and no baseline hemoglobin to compare. Hemoglobin was 8.6 and dropped to 7.3 requiring transfusion. Iron studies with low iron and low TIBC and normal TSat and ferritin to suggest acute blood loss. Acute blood loss related to the extensive bruising to the legs and from GI bleed. B12 low end of normal and folate frankly low at 2.0. Folate ordered. Suspect related to malnutrition. Replace B12. Serial HH and transfuse as needed (6) Electrolyte abnormality: Code(s): E87.8 - Other disorders of electrolyte and fluid balance, not elsewhere classified Status: Acute Assessment and Plan: Sodium low at 130 now better at 134. Non gap metabolic acidosis which could be related to lactic acidosis. He also had ketones in his urine so would consider malnutrition with ketosis. Serum bicarb slowly improving, Hypocalcemia but normal if corrected for the low albumin. low Albumin consistent with malnutrition. Potassium was low so will replace Follow (7) Hyperbilirubinemia: Code(s): E80.6 - Other disorders of bilirubin metabolism Status: Acute Assessment and Plan: TBili 5.5 evenly split b/w direct and indirect. CT scan showing that the gallbladder is dilated to 4.5 cm but no evidence of gallbladder wall thickening or pericholecystic inflammatory stranding. The intra and extrahepatic biliary ducts are not dilated. RUQ US showing diffuse heaptic steatosis but duct or GB findings. Suspect hyperbilirubinemia related to blood breakdown from the hemorrhaging into the legs. Follow. (8) Bilateral lower extremity edema: Code(s): R60.0 - Localized edema Status: Acute Assessment and Plan: Patient with edema and bruising extensively in the bilateral lower extremities. Patient denies any trauma to the area. CT of the abdomen pelvis with contrast did not show any concerning vascular abnormalities. Lower extremity CTA showed no discrete hemodynamically significant stenosis. He did have atretic right peroneal and left anterior tibial arteries in the dis
[2023-07-25 17:12] LABS: Hematocrit 25.2 % (42.0-52.0); Hemoglobin 8.3 g/dL (14.0-18.0)
--- NOTE | 2023-07-25 21:55 | PC.NURSE ---
This patient, Scar Ray, was transferred to [facility] on 07/25/23 at 2143. Personal belongings sent with patient. Report given to Serafin HO. Appropriate documentation sent with patient.
--- NOTE | 2023-07-25 22:48 | PC.NURSE ---
Patient arrived from IMU at 2140 and oriented to the room. Patient states understanding at this time.
[2023-07-25 23:11] LABS: Hematocrit 23.6 % (42.0-52.0); Hemoglobin 7.6 g/dL (14.0-18.0)
[2023-07-26] MEDS: cefTRIAXone 2 GM/NS 100 ML 2 GM/100 ML BAG IVPB (00:04)
[2023-07-26 05:16] LABS: Basophils Percent Auto 0.6 % (0.2-1.2); Eosinophils Absolute Auto 0.1 K/mm3 (0-0.3); Eosinophils Percent Auto 1.7 % (0-4.4); Hematocrit 24.1 % (42.0-52.0); Hemoglobin 7.9 g/dL (14.0-18.0); Immature Granulocyte Absolute 0.05 K/mm3 (0.00-0.031); Immature Granulocyte Percent A 1.1 % (0-0.5); Lymphocytes Absolute Auto 1.08 K/mm3 (0.9-3.2); Lymphocytes Percent Auto 23.1 % (18.3-44.2); Mean Corpuscular HGB Conc 32.8 g/dl (32-36); Mean Corpuscular Hemoglobin 30.5 pg (26-34); Mean Corpuscular Volume 93.1 fl (80-100); Mean Platelet Volume 9.5 fl (7.4-10.4); Monocytes Absolute Auto 0.2 K/mm3 (0.1-0.6); Monocytes Percent Auto 5.1 % (2.6-8.5); Neutrophils Absolute Auto 3.2 K/mm3 (1.3-6.7); Neutrophils Percent Auto 68.4 % (45.5-73.1); Nucleated Red Blood Cells Perc 0.6 % (0.0-0.2); Platelet Count Result 191 k/mm3 (150-375); Red Blood Count 2.59 M/mm3 (4.6-6.20); Red Cell Distribution Width 17.9 % (11.5-14.5); White Blood Count 4.7 K/mm3 (4.5-10.0)
[2023-07-26 05:29] LABS: Alanine Aminotransferase 19 U/L (6-50); Albumin Level 2.2 g/dL (3.5-5.1); Alkaline Phosphatase 57 U/L (38-126); Anion Gap 3 mmol/L (8-16); Aspartate Amino Transferase 45 U/L (17-59); Bilirubin,Total 5.2 mg/dL (0.2-1.3); Blood Urea Nitrogen 14 mg/dL (9-20); Calcium 6.8 mg/dL (8.4-10.2); Carbon Dioxide 20 mmol/L (22-30); Chloride 110 mmol/L (98-107); Estimated CRCL calculation 102 ml/min; Estimated Glomerular Filt Rate > 60; Glucose 85 mg/dL (65-110); Phosphorus 2.2 mg/dL (2.5-4.5); Potassium 3.4 mmol/L (3.4-5.0); Sodium 133 mmol/L (137-145)
--- NOTE | 2023-07-26 07:44 | WPDGIPROGNO ---
Progress Note: A&P Assessment and Plan (1) Gastric ulcer: Code(s): K25.9 - Gastric ulcer, unspecified as acute or chronic, without hemorrhage or perforation Status: Acute Assessment and Plan: Patient with gastric ulcer, gastritis and esophagitis on endoscopy. Patient improving with pantoprazole. Plan to continue this medication post discharge. Follow-up EGD advised in 2-3 months to document healing. Patient should avoid alcohol. [place] diet is encouraged. (2) Ulcerative esophagitis: Code(s): K22.10 - Ulcer of esophagus without bleeding Status: Acute Assessment and Plan: Long-term pantoprazole or similar PPI advised. Anti-reflux measures suggested. [place] diet initially may be beneficial. No additional bleeding noted at this time. Okay to discharge from GI perspective. (3) Ecchymosis: Code(s): R58 - Hemorrhage, not elsewhere classified Status: Acute Assessment and Plan: Ecchymoses on lower extremity of uncertain etiology. Patient denies trauma. This may account for his elevated bilirubin (4) Alcoholism: Code(s): F10.20 - Alcohol dependence, uncomplicated Status: Acute (5) Hyperbilirubinemia: Code(s): E80.6 - Other disorders of bilirubin metabolism Status: Acute Assessment and Plan: elevated bilirubin may be from re- absorption of his hematoma. Subjective Date/time seen: 07/26/23 07:44 Interval history: Patient alert comfortable this morning. Denies abdominal pain. Tolerating regular diet. Review of Systems Review of Systems: Review of systems is noncontributory. Exam Narrative: Physical exam reveals patient be alert. Vital signs stable. Comfortable at rest. HEENT exam reveals no icterus. Lungs are clear. Heart without murmur. Abdomen bowel sounds present soft nontender with no organomegaly. Objective Data Vital Signs Vital Signs: Vital Signs - 24 hr 07/25/23 07:58 07/25/23 08:00 07/25/23 08:00 Temperature 96.3 F L Pulse Rate 83 96 Pulse Rate [Bilateral Pedal (Dorsalis Pedis)] 83 Respiratory Rate 20 Blood Pressure 109/52 L Pulse Oximetry 92 Oxygen Delivery 07/25/23 10:00 07/25/23 11:44 07/25/23 12:00 Temperature 96.2 F L Pulse Rate 90 92 91 Pulse Rate [Bilateral Pedal (Dorsalis Pedis)] Respiratory Rate 22 H Blood Pressure 116/56 L Pulse Oximetry 97 Oxygen Delivery 07/25/23 13:28 07/25/23 15:54 07/25/23 14:00 Temperature 96.9 F L Pulse Rate 83 88 Pulse Rate [Bilateral Pedal (Dorsalis Pedis)] Respiratory Rate 20 Blood Pressure 105/54 L Pulse Oximetry 91 97 Oxygen Delivery Room Air 07/25/23 16:00 07/25/23 19:38 07/25/23 20:00 Temperature 97.4 F L Pulse Rate 80 80 Pulse Rate [Bilateral Pedal (Dorsalis Pedis)] Respiratory Rate 20 Blood Pressure 104/55 L Pulse Oximetry 91 91 Oxygen Delivery Room Air 07/25/23 22:56 Temperature 98.1 F Pulse Rate 84 Pulse Rate [Bilateral Pedal (Dorsalis Pedis)] Respiratory Rate 20 Blood Pressure 102/50 L Pulse Oximetry 95 Oxygen Delivery Intake/Output Intake/Output: Intake & Output 07/23/23 07/24/23 07/25/23 07/26/23 23:59 23:59 23:59 23:59 Intake Total 2500 3640 4030 600 Output Total 300 1550 1550 1350 Balance 2200 2090 2480 -750 Meds/Results Medications: Active Medications Generic Name Dose Route Start Last Admin Trade Name Freq PRN Reason Stop Dose Admin Cyanocobalamin 1,000 mcg 07/25/23 09:00 07/25/23 09:05 Cyanocobalamin 1,000 Mcg Tablet PO 1,000 mcg QAM JEOVANY Administration Folic Acid 1 mg 07/24/23 09:00 07/25/23 09:05 Folic Acid 1 Mg Tablet PO 1 mg DAILY JEOVANY Administration Ceftriaxone Sodium 2 gm in 100 mls @ 200 mls/hr 07/24/23 01:00 07/26/23 00:34 Rocephin 2 Gm/Ns 100 Ml IVPB Infused Q24H JEOVANY Infusion Ondansetron HCl 4 mg 07/23/23 20:05 Ondansetron Inj 4 Mg/2 Ml Vial IV PUSH Q4H PRN Nausea
[2023-07-26 08:00] VITALS: PULSE 78; RESP 16; O2SAT 94
[2023-07-26 08:39] VITALS: BP 104/55; PULSE 78; RESP 16; TEMP 37.1; O2SAT 94
[2023-07-26] MEDS: THIAMINE HCL 100 MG TABLET PO (09:00)
[2023-07-26] MEDS: CYANOCOBALAMIN 1,000 MCG TABLET 1000 MCG PO (09:00)
[2023-07-26] MEDS: PANTOPRAZOLE SODIUM IV 40 MG VIAL IV PUSH ×2 (09:00→20:31)
[2023-07-26] MEDS: FOLIC ACID 1 MG TABLET PO (09:00)
--- NOTE | 2023-07-26 10:11 | P.PNIM_ITS ---
Progress Note: A&P Assessment and Plan (1) Ulcerative esophagitis: Code(s): K22.10 - Ulcer of esophagus without bleeding Status: Acute Assessment and Plan: Patient presents emergency room with complaints of shortness of breath. He had an episode of nausea and vomiting x1 with coffee-ground emesis in the ED. Hemoglobin 8.6 on admission and dropped to 7.3. He was hypotensive with lactic acidosis. He was given IV fluids and 1U PRBC. His baseline hemoglobin is unknown. No further episodes of nausea and vomiting. He was started on Protonix and octreotide. GI consulted and patient underwent EGD 07/24 showing severe ulcerative esophagitis, diffuse gastritis and several superficial gastric ulcers. Biopsy taken. Continue Protonix. Appreciate GI input. (2) Hypotension: Code(s): I95.9 - Hypotension, unspecified Status: Acute Assessment and Plan: Patient was hypotensive on admission. He had some improvement possibly related to the transfusion. Patient's again become hypotensive. MAP has been okay. Fluid bolus given. BP improved. Follow. Stop IV fluids today. (3) Lactic acidosis: Code(s): E87.20 - Acidosis, unspecified Status: Acute Assessment and Plan: Lactic acid was 4.7 on admission. Lactic has trended downward to normal. UA noted. UCx pending BCx growing GPC in clusters from anaerobic bottle only. Currently on Rocephin. Vanco added over night and continued but PharmD ID recommended abx be stopped and resumed if Cx lori positive. Contineu Rocephiin. Follow-up on cultures. (4) Bacteremia: Code(s): R78.81 - Bacteremia Status: Acute Assessment and Plan: As above (5) Acute blood loss anemia: Code(s): D62 - Acute posthemorrhagic anemia Status: Acute Assessment and Plan: Baseline hemoglobin unclear. Patient presumably has no medical problems and no baseline hemoglobin to compare. Hemoglobin was 8.6 and dropped to 7.3 requiring transfusion. Iron studies with low iron and low TIBC and normal TSat and ferritin to suggest acute blood loss. Acute blood loss related to the extensive bruising to the legs and from GI bleed. B12 low end of normal and folate frankly low at 2.0. Folate ordered. Suspect related to malnutrition. Replace B12. Serial HH and transfuse as needed (6) Electrolyte abnormality: Code(s): E87.8 - Other disorders of electrolyte and fluid balance, not elsewhere classified Status: Acute Assessment and Plan: Sodium low at 130 now better at 134. Non gap metabolic acidosis which could be related to lactic acidosis. He also had ketones in his urine so would consider malnutrition with ketosis. Serum bicarb slowly improving, Hypocalcemia but normal if corrected for the low albumin. low Albumin consistent with malnutrition. Potassium was low so will replace Follow (7) Hyperbilirubinemia: Code(s): E80.6 - Other disorders of bilirubin metabolism Status: Acute Assessment and Plan: TBili 5.5 evenly split b/w direct and indirect. CT scan showing that the gallbladder is dilated to 4.5 cm but no evidence of gallbladder wall thickening or pericholecystic inflammatory stranding. The intra and extrahepatic biliary ducts are not dilated. RUQ US showing diffuse heaptic steatosis but duct or GB findings. Suspect hyperbilirubinemia related to blood breakdown from the hemorrhaging into the legs. Follow. (8) Bilateral lower extremity edema: Code(s): R60.0 - Localized edema Status: Acute Assessment and
--- NOTE | 2023-07-26 13:10 | PM.DS ---
DS: Admitting Diagnosis Discharge Date 07/26/23 Admitting Diagnosis Hematemesis DS: Discharge Diagnosis Discharge Diagnosis Plan (1) Ulcerative esophagitis: ?Code(s): K22.10 - Ulcer of esophagus without bleeding ?Status:?Acute ?Assessment and Plan: Patient presents emergency room with complaints of shortness of breath.? He had an episode of nausea and vomiting x1 with coffee-ground emesis in the ED.? Hemoglobin 8.6 on admission and dropped to 7.3.? He was hypotensive with lactic acidosis.? He was given IV fluids and 1U PRBC. His baseline hemoglobin is unknown.? No further episodes of nausea and vomiting.? He was started on Protonix and octreotide. GI consulted and patient underwent EGD 07/24 showing severe ulcerative esophagitis, diffuse gastritis and several superficial gastric ulcers. Biopsy taken. Continue Protonix. Appreciate GI input. (2) Hypotension: ?Code(s): I95.9 - Hypotension, unspecified ?Status:?Acute ?Assessment and Plan: Patient was hypotensive on admission.? He had some improvement possibly related to the transfusion.? Patient's again become hypotensive.? MAP has been okay. Fluid bolus given. BP improved. Follow. Stop IV fluids today. (3) Lactic acidosis: ?Code(s): E87.20 - Acidosis, unspecified ?Status:?Acute ?Assessment and Plan: Lactic acid was 4.7 on admission.? Lactic has trended downward to normal. UA noted. UCx pending BCx growing GPC in clusters from anaerobic bottle only. Currently on Rocephin. Vanco added over night and continued but PharmD ID recommended abx be stopped and resumed if Cx lori positive.? Contineu Rocephiin. Follow-up on cultures. (4) Bacteremia: ?Code(s): R78.81 - Bacteremia ?Status:?Acute ?Assessment and Plan: As above (5) Acute blood loss anemia: ?Code(s): D62 - Acute posthemorrhagic anemia ?Status:?Acute ?Assessment and Plan: Baseline hemoglobin unclear.? Patient presumably has no medical problems and no baseline hemoglobin to compare.? Hemoglobin was 8.6 and dropped to 7.3 requiring transfusion. Iron studies with low iron and low TIBC and normal TSat and ferritin to suggest acute blood loss. Acute blood loss related to the extensive bruising to the legs and from GI bleed. B12 low end of normal and folate frankly low at 2.0. Folate ordered. Suspect related to malnutrition. Replace B12. Serial HH and transfuse as needed (6) Electrolyte abnormality: ?Code(s): E87.8 - Other disorders of electrolyte and fluid balance, not elsewhere classified ?Status:?Acute ?Assessment and Plan: Sodium low at 130 now better at 134.? Non gap metabolic acidosis which could be related to lactic acidosis.? He also had ketones in his urine so would consider malnutrition with ketosis. Serum bicarb slowly improving, Hypocalcemia but normal if corrected for the low albumin. low Albumin consistent with malnutrition. ? Potassium was low so will replace Follow (7) Hyperbilirubinemia: ?Code(s): E80.6 - Other disorders of bilirubin metabolism ?Status:?Acute ?Assessment and Plan: TBili 5.5 evenly split b/w direct and indirect. CT scan showing that the gallbladder is dilated to 4.5 cm but no evidence of gallbladder wall thickening or pericholecystic inflammatory stranding.? The intra and extrahepatic biliary ducts are not dilated. RUQ US showing diffuse heaptic steatosis but duct or GB findings. Suspect hyperbilirubinemia related to blood breakdown from the hemorrhaging into the legs. Follow.? (8) Bilateral lower extremity edema: ?Code(s): R60.0 - Localized edema ?Status:?Acute ?Assessment and Plan: Patient with edema and bruising extensively in the bilateral lower extremities.? Patient denies any trauma to the area.? CT of the abdomen pelvis with contrast did not show any concerning vascular abnormalities.? Lower extremity CTA showed no discrete hemodynamically significant stenosis.? He did
--- NOTE | 2023-07-26 14:40 | PC.NURSE ---
Dr. Cedillo put in discharge for pt however pt is not appropriate for discharge at this time, unable to stand or ambulate without legs shaking severely and feeling dizzy/lightheaded. According to PT/OT notes, discharge rec is acute rehab. spoke with CC, pt does not have insurance and nothing has been set up this far for placement. Attempted to call MD twice with no answer. CC will come speak with patient, holding discharge at this time.
[2023-07-26 16:49] VITALS: BP 83/49; PULSE 79; RESP 16; TEMP 36.8; O2SAT 95
[2023-07-26 17:48] LABS: Hemoglobin 8.1 g/dL (14.0-18.0)
[2023-07-26 19:25] VITALS: BP 92/50; PULSE 76; RESP 18; TEMP 36.8; O2SAT 100
[2023-07-27] VITALS (11 sets, daily range): BP systolic 61–100; BP diastolic 44–60; PULSE 74–86; RESP 16–18; TEMP 36.6–36.8; O2SAT 98–100
[2023-07-27] MEDS: cefTRIAXone 2 GM/NS 100 ML 2 GM/100 ML BAG IVPB (00:01)
[2023-07-27] MEDS: PANTOPRAZOLE SODIUM IV 40 MG VIAL IV PUSH ×2 (09:05→19:58)
[2023-07-27] MEDS: THIAMINE HCL 100 MG TABLET PO (09:05)
[2023-07-27] MEDS: CYANOCOBALAMIN 1,000 MCG TABLET 1000 MCG PO (09:05)
[2023-07-27] MEDS: FOLIC ACID 1 MG TABLET PO (09:05)
[2023-07-27 10:22] LABS: Haptoglobin 153 mg/dL (43-212)
--- NOTE | 2023-07-27 10:34 | PCPTNOTE ---
Attempted to see patient for PT, however patient's blood pressure is 82/50 laying. Patient is not appropriate for therapy at this time due to low blood pressure.
[2023-07-27] MEDS: SODIUM CHLORIDE 0.9% IV 1,000 ML 999 ML IV CONT ×2 (10:40→17:04)
--- NOTE | 2023-07-27 15:12 | PM.IMPN ---
Progress Note: A&P Assessment and Plan (1) Ulcerative esophagitis: Code(s): K22.10 - Ulcer of esophagus without bleeding Status: Acute Assessment and Plan: Patient presents emergency room with complaints of shortness of breath. He had an episode of nausea and vomiting x1 with coffee-ground emesis in the ED. Hemoglobin 8.6 on admission and dropped to 7.3. He was hypotensive with lactic acidosis. He was given IV fluids and 1U PRBC. His baseline hemoglobin is unknown. No further episodes of nausea and vomiting. He was started on Protonix and octreotide. GI consulted and patient underwent EGD 07/24 showing severe ulcerative esophagitis, diffuse gastritis and several superficial gastric ulcers. Biopsy taken. Continue Protonix. Appreciate GI input. (2) Hypotension: Code(s): I95.9 - Hypotension, unspecified Status: Acute Assessment and Plan: Patient was hypotensive on admission. He had some improvement possibly related to the transfusion. Patient's again become hypotensive. MAP has been okay. Fluid bolus given. BP improved. Follow. Stop IV fluids today. Recurrent hypotension requiring IVF boluses (3) Lactic acidosis: Code(s): E87.20 - Acidosis, unspecified Status: Acute Assessment and Plan: Lactic acid was 4.7 on admission. Lactic has trended downward to normal. UA noted. UCx negative, abx d/c (4) Bacteremia: Code(s): R78.81 - Bacteremia Status: Acute Assessment and Plan: Likely contaminant, recheck bld cx sent, follow Restart vanc due to possible bacteremia (5) Acute blood loss anemia: Code(s): D62 - Acute posthemorrhagic anemia Status: Acute Assessment and Plan: Baseline hemoglobin unclear. Patient presumably has no medical problems and no baseline hemoglobin to compare. Hemoglobin was 8.6 and dropped to 7.3 requiring transfusion. Iron studies with low iron and low TIBC and normal TSat and ferritin to suggest acute blood loss. Acute blood loss related to the extensive bruising to the legs and from GI bleed. B12 low end of normal and folate frankly low at 2.0. Folate ordered. Suspect related to malnutrition. Replace B12. Serial HH and transfuse as needed (6) Electrolyte abnormality: Code(s): E87.8 - Other disorders of electrolyte and fluid balance, not elsewhere classified Status: Acute Assessment and Plan: Sodium low at 130 now better at 134. Non gap metabolic acidosis which could be related to lactic acidosis. He also had ketones in his urine so would consider malnutrition with ketosis. Serum bicarb slowly improving, Hypocalcemia but normal if corrected for the low albumin. low Albumin consistent with malnutrition. Potassium was low so will replace Follow (7) Hyperbilirubinemia: Code(s): E80.6 - Other disorders of bilirubin metabolism Assessment and Plan: TBili 5.5 evenly split b/w direct and indirect. CT scan showing that the gallbladder is dilated to 4.5 cm but no evidence of gallbladder wall thickening or pericholecystic inflammatory stranding. The intra and extrahepatic biliary ducts are not dilated. RUQ US showing diffuse heaptic steatosis but duct or GB findings. Suspect hyperbilirubinemia related to blood breakdown from the hemorrhaging into the legs. Follow. (8) Bilateral lower extremity edema: Code(s): R60.0 - Localized edema Status: Acute Assessment and Plan: Patient with edema and bruising extensively in the bilateral lower extremities. Patient denies any trauma to the area. CT of the abdomen pelvis with contrast did not show any concerning vascular abnormalities. Lower extremity CTA showed no discrete hemodynamically significant stenosis. He did have atretic right peroneal and left anterior tibial arteries in the distal calves with 2 vessel runoff into both feet. LE venous doppler negative for DVT. TCK normal. Echo showing EF 70% with
[2023-07-27 16:15] LABS: Basophils Percent Auto 0.6 % (0.2-1.2); Eosinophils Absolute Auto 0.1 K/mm3 (0-0.3); Eosinophils Percent Auto 1.1 % (0-4.4); Hematocrit 23.4 % (42.0-52.0); Hemoglobin 7.6 g/dL (14.0-18.0); Immature Granulocyte Absolute 0.07 K/mm3 (0.00-0.031); Immature Granulocyte Percent A 1.5 % (0-0.5); Lymphocytes Absolute Auto 0.95 K/mm3 (0.9-3.2); Lymphocytes Percent Auto 20.5 % (18.3-44.2); Mean Corpuscular HGB Conc 32.5 g/dl (32-36); Mean Corpuscular Hemoglobin 30.8 pg (26-34); Mean Corpuscular Volume 94.7 fl (80-100); Mean Platelet Volume 10.1 fl (7.4-10.4); Monocytes Absolute Auto 0.4 K/mm3 (0.1-0.6); Monocytes Percent Auto 7.5 % (2.6-8.5); Neutrophils Absolute Auto 3.2 K/mm3 (1.3-6.7); Neutrophils Percent Auto 68.8 % (45.5-73.1); Platelet Count Result 193 k/mm3 (150-375); Red Blood Count 2.47 M/mm3 (4.6-6.20); Red Cell Distribution Width 20.1 % (11.5-14.5); White Blood Count 4.6 K/mm3 (4.5-10.0)
[2023-07-27 16:18] LABS: Lactic Acid Reflex 2.6 mmol/L (0.7-2.0)
[2023-07-27 16:20] LABS: Alanine Aminotransferase 30 U/L (6-50); Albumin Level 2.2 g/dL (3.5-5.1); Alkaline Phosphatase 80 U/L (38-126); Anion Gap 6 mmol/L (8-16); Aspartate Amino Transferase 63 U/L (17-59); Bilirubin,Total 3.9 mg/dL (0.2-1.3); Blood Urea Nitrogen 18 mg/dL (9-20); Calcium 6.7 mg/dL (8.4-10.2); Carbon Dioxide 17 mmol/L (22-30); Chloride 108 mmol/L (98-107); Estimated CRCL calculation 118 ml/min; Estimated Glomerular Filt Rate > 60; Glucose 96 mg/dL (65-110); Potassium 3.2 mmol/L (3.4-5.0); Sodium 131 mmol/L (137-145)
[2023-07-27 16:22] LABS: CRP 4.7 mg/dL (<1.0)
--- NOTE | 2023-07-27 17:50 | PC.NURSE ---
Pt has another discharge order entered in as of this morning. Pt still not doing well with therapy, is not safe to go home as he can not stand up independently. Care coordination attempting to find placement. Pt's leg's shake and he gets lightheaded with any position change. Both therapy sessions today pt had low blood pressures. Orthostatics were taken (see vitals) and pt dropped significantly lowest reading being 68/51. Pt is symptomatic and was laid back down. MD Cedillo notified, Nguyen to put in orders. Orders received for another 1000ml bolus although RN has concern about third spacing. Pt is very edematous in his bilateral extremities, c/o SOB. O2 saturations 99-100% on room air. Will follow through with MD orders and monitor patient. Pt has bruising spreading from his feet/ankles up his legs, left more prominent than the right. Tracks up to groin area. Denies any falls or trauma to his legs but does c/o pain. Hgb dropped back down to 7.6. No other new orders. Will continue to monitor.
[2023-07-27] MEDS: VANCOMYCIN 1,250 MG/NS 250 ML 1,250 MG/250 ML BAG 166.67 MG IVPB (18:05)
[2023-07-27 18:41] LABS: Procalcitonin 0.3 ng/mL
[2023-07-27 19:04] LABS: Reflex Lactic Acid Yes or No Add Lactic
[2023-07-27] MEDS: VANCOMYCIN 1,000 MG/NS 250 ML 1,000 MG/250 ML BAG 250 MG IVPB (19:56)
[2023-07-27 20:15] LABS: Lactic Acid 2.8 mmol/L (0.7-2.0)
[2023-07-28] MEDS: cefTRIAXone 2 GM/NS 100 ML 2 GM/100 ML BAG IVPB (00:02)
[2023-07-28 05:40] LABS: Basophils Percent Auto 0.5 % (0.2-1.2); Eosinophils Absolute Auto 0.1 K/mm3 (0-0.3); Hematocrit 23.5 % (42.0-52.0); Hemoglobin 7.2 g/dL (14.0-18.0); Immature Granulocyte Absolute 0.05 K/mm3 (0.00-0.031); Immature Granulocyte Percent A 1.3 % (0-0.5); Lymphocytes Absolute Auto 1.08 K/mm3 (0.9-3.2); Lymphocytes Percent Auto 27.2 % (18.3-44.2); Mean Corpuscular HGB Conc 30.6 g/dl (32-36); Mean Corpuscular Hemoglobin 30.6 pg (26-34); Mean Platelet Volume 10.3 fl (7.4-10.4); Monocytes Absolute Auto 0.3 K/mm3 (0.1-0.6); Monocytes Percent Auto 7.8 % (2.6-8.5); Neutrophils Absolute Auto 2.4 K/mm3 (1.3-6.7); Neutrophils Percent Auto 60.2 % (45.5-73.1); Platelet Count Result 188 k/mm3 (150-375); Red Blood Count 2.35 M/mm3 (4.6-6.20); Red Cell Distribution Width 21.2 % (11.5-14.5)
[2023-07-28 05:53] LABS: Alanine Aminotransferase 26 U/L (6-50); Albumin Level 2.1 g/dL (3.5-5.1); Alkaline Phosphatase 65 U/L (38-126); Anion Gap 7 mmol/L (8-16); Aspartate Amino Transferase 52 U/L (17-59); Bilirubin,Total 2.9 mg/dL (0.2-1.3); Blood Urea Nitrogen 17 mg/dL (9-20); Calcium 6.7 mg/dL (8.4-10.2); Carbon Dioxide 16 mmol/L (22-30); Chloride 110 mmol/L (98-107); Estimated CRCL calculation 118 ml/min; Estimated Glomerular Filt Rate > 60; Glucose 70 mg/dL (65-110); Potassium 3.1 mmol/L (3.4-5.0); Sodium 133 mmol/L (137-145)
[2023-07-28 07:32] VITALS: BP 95/48; PULSE 81; RESP 16; TEMP 36.6; O2SAT 100
[2023-07-28] MEDS: THIAMINE HCL 100 MG TABLET PO (08:30)
[2023-07-28] MEDS: FOLIC ACID 1 MG TABLET PO (08:30)
[2023-07-28] MEDS: CYANOCOBALAMIN 1,000 MCG TABLET 1000 MCG PO (08:30)
[2023-07-28] MEDS: PANTOPRAZOLE SODIUM IV 40 MG VIAL IV PUSH ×2 (08:31→20:29)
--- NOTE | 2023-07-28 09:41 | PM.IMPN ---
Progress Note: A&P Assessment and Plan (1) Hypotension: Code(s): I95.9 - Hypotension, unspecified Status: Acute Assessment and Plan: Patient was hypotensive on admission. He had some improvement possibly related to the transfusion. Patient again became hypotensive. MAP has been okay. Fluid bolus given. BP improved. Recurrent hypotension requiring IVF boluses, restart maint fluids (2) Lactic acidosis: Code(s): E87.20 - Acidosis, unspecified Status: Acute Assessment and Plan: Lactic acid was 4.7 on admission. Lactic has trended downward, still elevated, monitor, restart IVF UA noted. UCx negative, abx d/c (3) Bacteremia: Code(s): R78.81 - Bacteremia Status: Acute Assessment and Plan: Likely contaminant, recheck bld cx sent, follow Restart vanc due to possible bacteremia, MRSA negative, d/c vanc Cont rocephin 2g daily Repeat bld cx NGTD, follow PCT 0.3, unchanged LA still elevated, cont IVF, recheck (4) Ulcerative esophagitis: Code(s): K22.10 - Ulcer of esophagus without bleeding Status: Acute Assessment and Plan: Patient presents emergency room with complaints of shortness of breath. He had an episode of nausea and vomiting x1 with coffee-ground emesis in the ED. Hemoglobin 8.6 on admission and dropped to 7.3. He was hypotensive with lactic acidosis. He was given IV fluids and 1U PRBC. His baseline hemoglobin is unknown. No further episodes of nausea and vomiting. He was started on Protonix and octreotide. GI consulted and patient underwent EGD 07/24 showing severe ulcerative esophagitis, diffuse gastritis and several superficial gastric ulcers. Biopsy taken. Continue Protonix. Appreciate GI input. (5) Acute blood loss anemia: Code(s): D62 - Acute posthemorrhagic anemia Status: Acute Assessment and Plan: Baseline hemoglobin unclear. Patient presumably has no medical problems and no baseline hemoglobin to compare. Hemoglobin was 8.6 and dropped to 7.3 requiring transfusion. Iron studies with low iron and low TIBC and normal TSat and ferritin to suggest acute blood loss. Acute blood loss related to the extensive bruising to the legs and from GI bleed. B12 low end of normal and folate frankly low at 2.0. Folate ordered. Suspect related to malnutrition. Replace B12. Serial HH and transfuse as needed Still a little low, 7.2 this morning, recheck this afternoon (6) Electrolyte abnormality: Code(s): E87.8 - Other disorders of electrolyte and fluid balance, not elsewhere classified Status: Acute Assessment and Plan: Sodium low at 130 now better at 134. Non gap metabolic acidosis which could be related to lactic acidosis. He also had ketones in his urine so would consider malnutrition with ketosis. Serum bicarb slowly improving, Hypocalcemia but normal if corrected for the low albumin. low Albumin consistent with malnutrition. Potassium was low so will replace Follow (7) Hyperbilirubinemia: Code(s): E80.6 - Other disorders of bilirubin metabolism Assessment and Plan: TBili 5.5 evenly split b/w direct and indirect. CT scan showing that the gallbladder is dilated to 4.5 cm but no evidence of gallbladder wall thickening or pericholecystic inflammatory stranding. The intra and extrahepatic biliary ducts are not dilated. RUQ US showing diffuse heaptic steatosis but duct or GB findings. Suspect hyperbilirubinemia related to blood breakdown from the hemorrhaging into the legs. Improving (8) Bilateral lower extremity edema: Code(s): R60.0 - Localized edema Status: Acute Assessment and Plan: Patient with edema and bruising extensively in the bilateral lower extremities. Patient denies any trauma to the area. CT of the abdomen pelvis with contrast did not show any concerning vascular abnormalities. Lower extremity CTA showed no discrete hemodynamically significant
[2023-07-28] MEDS: POTASSIUM CHLORIDE 20 MEQ ER TABLET 80 MEQ PO (10:01)
[2023-07-28] MEDS: SODIUM CHLORIDE 0.9% IV 1,000 ML 999 ML IV CONT ×2 (10:01→15:36)
[2023-07-28 11:31] VITALS: O2SAT 99
[2023-07-28 11:32] LABS: Hematocrit 23.6 % (42.0-52.0); Hemoglobin 7.4 g/dL (14.0-18.0)
[2023-07-28 11:52] LABS: CRP 4.9 mg/dL (<1.0)
[2023-07-28 12:24] LABS: Lactic Acid Reflex 2.4 mmol/L (0.7-2.0)
[2023-07-28 14:23] VITALS: BP 92/52; PULSE 80; RESP 16; TEMP 36.7; O2SAT 100
[2023-07-28 14:29] LABS: Reflex Lactic Acid Yes or No Add Lactic
[2023-07-28 15:25] LABS: Lactic Acid 1.9 mmol/L (0.7-2.0)
[2023-07-28] MEDS: SODIUM CHLORIDE 0.9% IV 1,000 ML 100 ML IV CONT (16:37)
[2023-07-28 20:00] VITALS: BP 94/53; PULSE 72; RESP 14; TEMP 37.1; O2SAT 100
[2023-07-29] VITALS (8 sets, daily range): BP systolic 83–101; BP diastolic 49–58; PULSE 70–79; RESP 16–20; TEMP 36.2–37.3; O2SAT 97–100
[2023-07-29] MEDS: cefTRIAXone 2 GM/NS 100 ML 2 GM/100 ML BAG IVPB (00:42)
[2023-07-29] MEDS: SODIUM CHLORIDE 0.9% IV 1,000 ML 100 ML IV CONT ×2 (00:45→12:43)
[2023-07-29 05:18] LABS: Basophils Percent Auto 0.8 % (0.2-1.2); Eosinophils Absolute Auto 0.1 K/mm3 (0-0.3); Eosinophils Percent Auto 3.4 % (0-4.4); Hematocrit 22.6 % (42.0-52.0); Hemoglobin 7.1 g/dL (14.0-18.0); Immature Granulocyte Absolute 0.03 K/mm3 (0.00-0.031); Immature Granulocyte Percent A 0.8 % (0-0.5); Lymphocytes Absolute Auto 1.06 K/mm3 (0.9-3.2); Lymphocytes Percent Auto 29.8 % (18.3-44.2); Mean Corpuscular HGB Conc 31.4 g/dl (32-36); Mean Corpuscular Hemoglobin 31.3 pg (26-34); Mean Corpuscular Volume 99.6 fl (80-100); Mean Platelet Volume 10.1 fl (7.4-10.4); Monocytes Absolute Auto 0.3 K/mm3 (0.1-0.6); Monocytes Percent Auto 9.6 % (2.6-8.5); Neutrophils Percent Auto 55.6 % (45.5-73.1); Platelet Count Result 195 k/mm3 (150-375); Red Blood Count 2.27 M/mm3 (4.6-6.20); Red Cell Distribution Width 21.3 % (11.5-14.5); White Blood Count 3.6 K/mm3 (4.5-10.0)
[2023-07-29 05:24] LABS: Alanine Aminotransferase 24 U/L (6-50); Albumin Level 2.1 g/dL (3.5-5.1); Alkaline Phosphatase 65 U/L (38-126); Anion Gap 5 mmol/L (8-16); Aspartate Amino Transferase 45 U/L (17-59); Bilirubin,Total 2.3 mg/dL (0.2-1.3); Blood Urea Nitrogen 14 mg/dL (9-20); Calcium 6.8 mg/dL (8.4-10.2); Carbon Dioxide 17 mmol/L (22-30); Chloride 113 mmol/L (98-107); Estimated CRCL calculation 119 ml/min; Estimated Glomerular Filt Rate > 60; Glucose 69 mg/dL (65-110); Potassium 3.5 mmol/L (3.4-5.0); Sodium 135 mmol/L (137-145)
[2023-07-29 05:33] LABS: Vancomycin Trough 7.4 ug/mL (10.0-20.0)
[2023-07-29] MEDS: THIAMINE HCL 100 MG TABLET PO (08:31)
[2023-07-29] MEDS: FOLIC ACID 1 MG TABLET PO (08:31)
[2023-07-29] MEDS: CYANOCOBALAMIN 1,000 MCG TABLET 1000 MCG PO (08:31)
[2023-07-29] MEDS: PANTOPRAZOLE SODIUM IV 40 MG VIAL IV PUSH ×2 (08:31→21:35)
--- NOTE | 2023-07-29 09:07 | PM.IMPN ---
Progress Note: A&P Assessment and Plan (1) Hypotension: Code(s): I95.9 - Hypotension, unspecified Status: Acute Assessment and Plan: Patient was hypotensive on admission. He had some improvement possibly related to the transfusion. Patient again became hypotensive. MAP has been okay. Fluid bolus given. BP improved. Recurrent hypotension requiring IVF boluses, restart maint fluids Stable, add midodrine today 2.5 mg TID and reassess (2) Lactic acidosis: Code(s): E87.20 - Acidosis, unspecified Status: Acute Assessment and Plan: Lactic acid was 4.7 on admission. Lactic has trended downward, still elevated, monitor, restart IVF UA noted. UCx negative, abx d/c Resolved (3) Bacteremia: Code(s): R78.81 - Bacteremia Status: Acute Assessment and Plan: Likely contaminant, recheck bld cx sent, follow Restart vanc due to possible bacteremia, MRSA negative, d/c vanc Cont rocephin 2g daily Repeat bld cx NGTD, follow (4) Ulcerative esophagitis: Code(s): K22.10 - Ulcer of esophagus without bleeding Status: Acute Assessment and Plan: Patient presents emergency room with complaints of shortness of breath. He had an episode of nausea and vomiting x1 with coffee-ground emesis in the ED. Hemoglobin 8.6 on admission and dropped to 7.3. He was hypotensive with lactic acidosis. He was given IV fluids and 1U PRBC. His baseline hemoglobin is unknown. No further episodes of nausea and vomiting. He was started on Protonix and octreotide. GI consulted and patient underwent EGD 07/24 showing severe ulcerative esophagitis, diffuse gastritis and several superficial gastric ulcers. Biopsy taken. Continue Protonix. Appreciate GI input. (5) Acute blood loss anemia: Code(s): D62 - Acute posthemorrhagic anemia Status: Acute Assessment and Plan: Baseline hemoglobin unclear. Patient presumably has no medical problems and no baseline hemoglobin to compare. Hemoglobin was 8.6 and dropped to 7.3 requiring transfusion. Iron studies with low iron and low TIBC and normal TSat and ferritin to suggest acute blood loss. Acute blood loss related to the extensive bruising to the legs and from GI bleed. B12 low end of normal and folate frankly low at 2.0. Folate ordered. Suspect related to malnutrition. Replace B12. Serial HH and transfuse as needed Still a little low, continue to monitor (6) Electrolyte abnormality: Code(s): E87.8 - Other disorders of electrolyte and fluid balance, not elsewhere classified Status: Acute Assessment and Plan: Sodium low at 130 now better at 134. Non gap metabolic acidosis which could be related to lactic acidosis. He also had ketones in his urine so would consider malnutrition with ketosis. Serum bicarb slowly improving, Hypocalcemia but normal if corrected for the low albumin. low Albumin consistent with malnutrition. Potassium was low so will replace Resolved (7) Hyperbilirubinemia: Code(s): E80.6 - Other disorders of bilirubin metabolism Assessment and Plan: TBili 5.5 evenly split b/w direct and indirect. CT scan showing that the gallbladder is dilated to 4.5 cm but no evidence of gallbladder wall thickening or pericholecystic inflammatory stranding. The intra and extrahepatic biliary ducts are not dilated. RUQ US showing diffuse heaptic steatosis but duct or GB findings. Suspect hyperbilirubinemia related to blood breakdown from the hemorrhaging into the legs. Improving, stable (8) Bilateral lower extremity edema: Code(s): R60.0 - Localized edema Status: Acute Assessment and Plan: Patient with edema and bruising extensively in the bilateral lower extremities. Patient denies any trauma to the area. CT of the abdomen pelvis with contrast did not show any concerning vascular abnormalities. Lower extremity CTA showed no discrete hemodynamically significant
[2023-07-29] MEDS: MIDODRINE HCL 2.5 MG TABLET PO ×2 (12:42→16:45)
[2023-07-30] VITALS (14 sets, daily range): BP systolic 88–123; BP diastolic 49–98; PULSE 64–86; RESP 14–18; TEMP 36.4–36.9; O2SAT 96–100
[2023-07-30] MEDS: cefTRIAXone 2 GM/NS 100 ML 2 GM/100 ML BAG IVPB (00:36)
[2023-07-30 05:28] LABS: Basophils Percent Auto 1.3 % (0.2-1.2); Eosinophils Absolute Auto 0.1 K/mm3 (0-0.3); Eosinophils Percent Auto 2.3 % (0-4.4); Hematocrit 22.7 % (42.0-52.0); Immature Granulocyte Absolute 0.04 K/mm3 (0.00-0.031); Immature Granulocyte Percent A 1.3 % (0-0.5); Lymphocytes Absolute Auto 0.86 K/mm3 (0.9-3.2); Lymphocytes Percent Auto 28.6 % (18.3-44.2); Mean Corpuscular HGB Conc 30.4 g/dl (32-36); Mean Corpuscular Hemoglobin 30.3 pg (26-34); Mean Corpuscular Volume 99.6 fl (80-100); Mean Platelet Volume 9.9 fl (7.4-10.4); Monocytes Absolute Auto 0.3 K/mm3 (0.1-0.6); Monocytes Percent Auto 10.6 % (2.6-8.5); Neutrophils Absolute Auto 1.7 K/mm3 (1.3-6.7); Neutrophils Percent Auto 55.9 % (45.5-73.1); Platelet Count Result 214 k/mm3 (150-375); Red Blood Count 2.28 M/mm3 (4.6-6.20)
[2023-07-30 05:35] LABS: Hemoglobin 6.9 g/dL (14.0-18.0)
[2023-07-30 05:43] LABS: Alanine Aminotransferase 22 U/L (6-50); Alkaline Phosphatase 69 U/L (38-126); Anion Gap 5 mmol/L (8-16); Aspartate Amino Transferase 37 U/L (17-59); Bilirubin,Total 1.9 mg/dL (0.2-1.3); Blood Urea Nitrogen 13 mg/dL (9-20); Carbon Dioxide 18 mmol/L (22-30); Chloride 110 mmol/L (98-107); Estimated CRCL calculation 119 ml/min; Estimated Glomerular Filt Rate > 60; Glucose 66 mg/dL (65-110); Potassium 3.5 mmol/L (3.4-5.0); Sodium 133 mmol/L (137-145)
[2023-07-30] MEDS: FOLIC ACID 1 MG TABLET PO (08:32)
[2023-07-30] MEDS: THIAMINE HCL 100 MG TABLET PO (08:32)
[2023-07-30] MEDS: MIDODRINE HCL 2.5 MG TABLET PO (08:32)
[2023-07-30] MEDS: CYANOCOBALAMIN 1,000 MCG TABLET 1000 MCG PO (08:32)
[2023-07-30] MEDS: PANTOPRAZOLE SODIUM IV 40 MG VIAL IV PUSH ×2 (08:32→20:23)
[2023-07-30] MEDS: SODIUM CHLORIDE 0.9% IV 1,000 ML 100 ML IV CONT ×3 (08:35→20:23)
--- NOTE | 2023-07-30 11:55 | PM.IMPN ---
Progress Note: A&P Assessment and Plan (1) Hypotension: Code(s): I95.9 - Hypotension, unspecified Status: Acute Assessment and Plan: Patient was hypotensive on admission. He had some improvement possibly related to the transfusion. Patient again became hypotensive. MAP has been okay. Fluid bolus given. BP improved. Recurrent hypotension requiring IVF boluses, restart maint fluids Stable, midodrine added yesterday, increased dose from 2.5 mg to 5 mg t.i.d. (2) Lactic acidosis: Code(s): E87.20 - Acidosis, unspecified Status: Acute Assessment and Plan: Lactic acid was 4.7 on admission. Lactic has trended downward, still elevated, monitor, restart IVF UA noted. UCx negative, abx d/c Resolved (3) Bacteremia: Code(s): R78.81 - Bacteremia Status: Acute Assessment and Plan: Likely contaminant, recheck bld cx sent, follow Restart vanc due to possible bacteremia, MRSA negative, d/c vanc Cont rocephin 2g daily Repeat bld cx NGTD, follow (4) Ulcerative esophagitis: Code(s): K22.10 - Ulcer of esophagus without bleeding Status: Acute Assessment and Plan: Patient presents emergency room with complaints of shortness of breath. He had an episode of nausea and vomiting x1 with coffee-ground emesis in the ED. Hemoglobin 8.6 on admission and dropped to 7.3. He was hypotensive with lactic acidosis. He was given IV fluids and 1U PRBC. His baseline hemoglobin is unknown. No further episodes of nausea and vomiting. He was started on Protonix and octreotide. GI consulted and patient underwent EGD 07/24 showing severe ulcerative esophagitis, diffuse gastritis and several superficial gastric ulcers. Biopsy taken. Continue Protonix. Appreciate GI input. (5) Acute blood loss anemia: Code(s): D62 - Acute posthemorrhagic anemia Status: Acute Assessment and Plan: Baseline hemoglobin unclear. Patient presumably has no medical problems and no baseline hemoglobin to compare. Hemoglobin was 8.6 and dropped to 7.3 requiring transfusion. Iron studies with low iron and low TIBC and normal TSat and ferritin to suggest acute blood loss. Acute blood loss related to the extensive bruising to the legs and from GI bleed. B12 low end of normal and folate frankly low at 2.0. Folate ordered. Suspect related to malnutrition. Replace B12. Serial HH and transfuse as needed Still a little low, continue to monitor 07/30: dropped a bit more, with associated shortness of breath with exertion, will transfuse 2 units today and reassess symptoms and hemoglobin (6) Electrolyte abnormality: Code(s): E87.8 - Other disorders of electrolyte and fluid balance, not elsewhere classified Status: Acute Assessment and Plan: Sodium low at 130 now better at 134. Non gap metabolic acidosis which could be related to lactic acidosis. He also had ketones in his urine so would consider malnutrition with ketosis. Serum bicarb slowly improving, Hypocalcemia but normal if corrected for the low albumin. low Albumin consistent with malnutrition. Potassium was low so will replace Resolved (7) Hyperbilirubinemia: Code(s): E80.6 - Other disorders of bilirubin metabolism Assessment and Plan: TBili 5.5 evenly split b/w direct and indirect. CT scan showing that the gallbladder is dilated to 4.5 cm but no evidence of gallbladder wall thickening or pericholecystic inflammatory stranding. The intra and extrahepatic biliary ducts are not dilated. RUQ US showing diffuse heaptic steatosis but duct or GB findings. Suspect hyperbilirubinemia related to blood breakdown from the hemorrhaging into the legs. Improving, stable (8) Bilateral lower extremity edema: Code(s): R60.0 - Localized edema Status: Acute Assessment and Plan: Patient with edema and bruising extensively in the bilateral lower extremities. Patient denies any trauma t
[2023-07-30] MEDS: MIDODRINE HCL 2.5 MG TABLET 5 MG PO ×2 (12:19→16:28)
--- NOTE | 2023-07-30 14:01 | PCOTNOTE ---
Pt is unavailable at this time due to receiving a blood transfusion at this moment. RN reports that pt was able to tolerate sitting up in the chair today for a couple of hours. Will continue per POC duration/frequency when appropriate.
[2023-07-30] MEDS: SODIUM CHLORIDE 0.9% IV 250 ML 30 ML IV CONT (14:09)
[2023-07-30 18:58] LABS: Hematocrit 30.6 % (42.0-52.0); Hemoglobin 9.7 g/dL (14.0-18.0)
[2023-07-31] VITALS (9 sets, daily range): BP systolic 78–109; BP diastolic 47–53; PULSE 65–87; RESP 16–18; TEMP 36.3–37.1; O2SAT 97–100
[2023-07-31] MEDS: cefTRIAXone 2 GM/NS 100 ML 2 GM/100 ML BAG IVPB (01:28)
[2023-07-31 05:30] LABS: Basophils Percent Auto 1.3 % (0.2-1.2); Eosinophils Absolute Auto 0.1 K/mm3 (0-0.3); Hemoglobin 8.6 g/dL (14.0-18.0); Immature Granulocyte Absolute 0.03 K/mm3 (0.00-0.031); Lymphocytes Absolute Auto 0.87 K/mm3 (0.9-3.2); Lymphocytes Percent Auto 28.8 % (18.3-44.2); Mean Corpuscular HGB Conc 33.1 g/dl (32-36); Mean Corpuscular Volume 93.9 fl (80-100); Mean Platelet Volume 10.3 fl (7.4-10.4); Monocytes Absolute Auto 0.4 K/mm3 (0.1-0.6); Monocytes Percent Auto 11.6 % (2.6-8.5); Neutrophils Absolute Auto 1.7 K/mm3 (1.3-6.7); Neutrophils Percent Auto 55.3 % (45.5-73.1); Platelet Count Result 186 k/mm3 (150-375); Red Blood Count 2.77 M/mm3 (4.6-6.20); Red Cell Distribution Width 18.7 % (11.5-14.5)
[2023-07-31 05:35] LABS: Alanine Aminotransferase 20 U/L (6-50); Alkaline Phosphatase 71 U/L (38-126); Anion Gap 2 mmol/L (8-16); Aspartate Amino Transferase 36 U/L (17-59); Blood Urea Nitrogen 11 mg/dL (9-20); Calcium 6.9 mg/dL (8.4-10.2); Carbon Dioxide 18 mmol/L (22-30); Chloride 111 mmol/L (98-107); Estimated CRCL calculation 119 ml/min; Estimated Glomerular Filt Rate > 60; Glucose 72 mg/dL (65-110); Potassium 3.3 mmol/L (3.4-5.0); Sodium 131 mmol/L (137-145)
[2023-07-31] MEDS: MIDODRINE HCL 2.5 MG TABLET 5 MG PO (09:03)
[2023-07-31] MEDS: CYANOCOBALAMIN 1,000 MCG TABLET 1000 MCG PO (09:03)
[2023-07-31] MEDS: PANTOPRAZOLE SODIUM IV 40 MG VIAL IV PUSH ×2 (09:03→21:27)
[2023-07-31] MEDS: FOLIC ACID 1 MG TABLET PO (09:03)
[2023-07-31] MEDS: THIAMINE HCL 100 MG TABLET PO (09:03)
--- NOTE | 2023-07-31 10:27 | PCPTNOTE ---
Attempted to see patient for PT, however patient not appropriate at this time due to patient's blood pressure 79/52 lying in bed.
[2023-07-31] MEDS: SODIUM CHLORIDE 0.9% IV 1,000 ML 100 ML IV CONT (10:50)
--- NOTE | 2023-07-31 11:33 | PCNWS ---
Weekly nutritional screen. Patient is tolerating current Soft and bite sized level 6 diet with adequate intake at 50-100% most all meals. No weight loss reported. No nutritional needs at this time.
--- NOTE | 2023-07-31 11:56 | PM.IMPN ---
Progress Note: A&P Assessment and Plan (1) Hypotension: Code(s): I95.9 - Hypotension, unspecified Status: Acute Assessment and Plan: Patient was hypotensive on admission. He had some improvement possibly related to the transfusion. Patient again became hypotensive. MAP has been okay. Fluid bolus given. BP improved. Recurrent hypotension requiring IVF boluses, restart maint fluids Stable, midodrine added yesterday, increased dose to 10 mg TID recheck PCT/LA/CRP, unsure why continues to be hypotensive, give another 1L bolus LA elevated again, will give bolus and increase maintenance fluids, PCT and CRP improving, no signs of tissue or infection, check troponin, suspect severe dehydration for some reason (2) Acute blood loss anemia: Code(s): D62 - Acute posthemorrhagic anemia Status: Acute Assessment and Plan: Baseline hemoglobin unclear. Patient presumably has no medical problems and no baseline hemoglobin to compare. Hemoglobin was 8.6 and dropped to 7.3 requiring transfusion. Iron studies with low iron and low TIBC and normal TSat and ferritin to suggest acute blood loss. Acute blood loss related to the extensive bruising to the legs and from GI bleed. B12 low end of normal and folate frankly low at 2.0. Folate ordered. Suspect related to malnutrition. Replace B12. Serial HH and transfuse as needed Still a little low, continue to monitor 07/30: dropped a bit more, with associated shortness of breath with exertion, will transfuse 2 units today and reassess symptoms and hemoglobin 07/31: slight drop, monitor, check FOBT, consider GI vs heme/onc consult? (3) Lactic acidosis: Code(s): E87.20 - Acidosis, unspecified Status: Acute Assessment and Plan: Lactic acid was 4.7 on admission. Lactic has trended downward, still elevated, monitor, restart IVF UA noted. UCx negative, abx d/c See above (4) Bacteremia: Code(s): R78.81 - Bacteremia Status: Acute Assessment and Plan: Likely contaminant, recheck bld cx sent, follow Restart vanc due to possible bacteremia, MRSA negative, d/c vanc Completed 8 day course of rocephin 2g daily Repeat bld cx NGTD, d/c abx (5) Ulcerative esophagitis: Code(s): K22.10 - Ulcer of esophagus without bleeding Status: Acute Assessment and Plan: Patient presents emergency room with complaints of shortness of breath. He had an episode of nausea and vomiting x1 with coffee-ground emesis in the ED. Hemoglobin 8.6 on admission and dropped to 7.3. He was hypotensive with lactic acidosis. He was given IV fluids and 1U PRBC. His baseline hemoglobin is unknown. No further episodes of nausea and vomiting. He was started on Protonix and octreotide. GI consulted and patient underwent EGD 07/24 showing severe ulcerative esophagitis, diffuse gastritis and several superficial gastric ulcers. Biopsy taken. Continue Protonix. Appreciate GI input. (6) Electrolyte abnormality: Code(s): E87.8 - Other disorders of electrolyte and fluid balance, not elsewhere classified Status: Acute Assessment and Plan: Sodium low at 130 now better at 134. Non gap metabolic acidosis which could be related to lactic acidosis. He also had ketones in his urine so would consider malnutrition with ketosis. Serum bicarb slowly improving, Hypocalcemia but normal if corrected for the low albumin. low Albumin consistent with malnutrition. Potassium was low so will replace Resolved (7) Hyperbilirubinemia: Code(s): E80.6 - Other disorders of bilirubin metabolism Assessment and Plan: TBili 5.5 evenly split b/w direct and indirect. CT scan showing that the gallbladder is dilated to 4.5 cm but no evidence of gallbladder wall thickening or pericholecystic inflammatory stranding. The intra and extrahepatic biliary ducts are not dilated. RUQ US showing diffuse heaptic steatosis but duct or GB findings.
[2023-07-31] MEDS: MIDODRINE HCL 2.5 MG TABLET 10 MG PO ×2 (12:43→16:52)
[2023-07-31] MEDS: POTASSIUM CHLORIDE 20 MEQ ER TABLET 40 MEQ PO (12:43)
[2023-07-31] MEDS: SODIUM CHLORIDE 0.9% IV 1,000 ML 999 ML IV CONT (12:44)
[2023-07-31 12:45] LABS: Lactic Acid Reflex 2.6 mmol/L (0.7-2.0)
[2023-07-31 12:48] LABS: CRP 3.7 mg/dL (<1.0)
[2023-07-31 13:08] LABS: Procalcitonin 0.1 ng/mL
--- NOTE | 2023-07-31 14:02 | ECG_ITS ---
Measurements Intervals [place] Rate: 71 P: 6 [place]: 166 QRS: 12 QRSD: 82 T: 8 QT: 395 QTc: 431 Interpretive Statements SINUS RHYTHM LOW QRS VOLTAGE IN PRECORDIAL LEADS [QRS DEFLECTION < 1.0 mV IN CHEST LEADS] MINOR NONSPECIFIC T-WAVE ABNORMALITY ABNORMAL ECG COMPARED TO ECG 07/23/2023 14:22:01 NO SIGNIFICANT CHANGES Electronically Signed On 07-31-2023 15:02:12 CDT by Jorge Garcia M.D.
[2023-07-31 14:53] LABS: Troponin I < 0.012 ng/mL (0.000-0.034)
[2023-07-31 15:29] LABS: Reflex Lactic Acid Yes or No Add Lactic
[2023-07-31] MEDS: SODIUM CHLORIDE 0.9% IV 1,000 ML 250 ML IV CONT ×2 (16:52→21:26)
[2023-07-31 17:08] LABS: Lactic Acid 1.8 mmol/L (0.7-2.0)
[2023-08-01] VITALS (9 sets, daily range): BP systolic 68–108; BP diastolic 42–58; PULSE 67–99; RESP 17–24; TEMP 36.4–37.2; O2SAT 96–100
[2023-08-01] MEDS: SODIUM CHLORIDE 0.9% IV 1,000 ML 250 ML IV CONT ×5 (00:59→21:24)
[2023-08-01 05:41] LABS: Basophils Percent Auto 1.3 % (0.2-1.2); Eosinophils Percent Auto 1.3 % (0-4.4); Hematocrit 26.8 % (42.0-52.0); Hemoglobin 8.4 g/dL (14.0-18.0); Immature Granulocyte Absolute 0.02 K/mm3 (0.00-0.031); Immature Granulocyte Percent A 0.7 % (0-0.5); Lymphocytes Absolute Auto 0.88 K/mm3 (0.9-3.2); Lymphocytes Percent Auto 28.9 % (18.3-44.2); Mean Corpuscular HGB Conc 31.3 g/dl (32-36); Mean Corpuscular Volume 98.9 fl (80-100); Mean Platelet Volume 10.3 fl (7.4-10.4); Monocytes Absolute Auto 0.3 K/mm3 (0.1-0.6); Monocytes Percent Auto 8.9 % (2.6-8.5); Neutrophils Absolute Auto 1.8 K/mm3 (1.3-6.7); Neutrophils Percent Auto 58.9 % (45.5-73.1); Platelet Count Result 184 k/mm3 (150-375); Red Blood Count 2.71 M/mm3 (4.6-6.20); Red Cell Distribution Width 19.3 % (11.5-14.5); White Blood Count 3.1 K/mm3 (4.5-10.0)
[2023-08-01 06:06] LABS: Alanine Aminotransferase 20 U/L (6-50); Alkaline Phosphatase 67 U/L (38-126); Anion Gap 2 mmol/L (8-16); Aspartate Amino Transferase 32 U/L (17-59); Bilirubin,Total 2.4 mg/dL (0.2-1.3); Blood Urea Nitrogen 11 mg/dL (9-20); Calcium 6.8 mg/dL (8.4-10.2); Carbon Dioxide 19 mmol/L (22-30); Chloride 110 mmol/L (98-107); Estimated CRCL calculation 119 ml/min; Estimated Glomerular Filt Rate > 60; Glucose 73 mg/dL (65-110); Potassium 3.5 mmol/L (3.4-5.0); Sodium 131 mmol/L (137-145)
[2023-08-01] MEDS: CYANOCOBALAMIN 1,000 MCG TABLET 1000 MCG PO (08:21)
[2023-08-01] MEDS: MIDODRINE HCL 2.5 MG TABLET 10 MG PO ×3 (08:21→17:13)
[2023-08-01] MEDS: THIAMINE HCL 100 MG TABLET PO (08:21)
[2023-08-01] MEDS: FOLIC ACID 1 MG TABLET PO (08:21)
[2023-08-01] MEDS: PANTOPRAZOLE SODIUM IV 40 MG VIAL IV PUSH ×2 (08:21→21:24)
--- NOTE | 2023-08-01 08:33 | PM.IMPN ---
Progress Note: A&P Assessment and Plan (1) Hypotension: Code(s): I95.9 - Hypotension, unspecified Status: Acute Assessment and Plan: Patient was hypotensive on admission. He had some improvement possibly related to the transfusion. Patient again became hypotensive. MAP has been okay. Fluid bolus given. BP improved. Recurrent hypotension requiring IVF boluses, restart maint fluids Stable, midodrine added, increased dose to 10 mg TID recheck PCT/LA/CRP, unsure why continues to be hypotensive, give another 1L bolus--improving LA elevated again, will give bolus and increase maintenance fluids, PCT and CRP improving, no signs of tissue or infection, check troponin, suspect severe dehydration for some reason 08/01: LA resolved, unsure of etiology, cont IVF, monitor, cont midodrine, d/c soon to rehab pending, nephro + cardio c/s ordered and pending, severe, refractory ortho hypotension despite max midodrine and IVF resuscitation and resolution of lactic acid (2) Acute blood loss anemia: Code(s): D62 - Acute posthemorrhagic anemia Status: Acute Assessment and Plan: Baseline hemoglobin unclear. Patient presumably has no medical problems and no baseline hemoglobin to compare. Hemoglobin was 8.6 and dropped to 7.3 requiring transfusion. Iron studies with low iron and low TIBC and normal TSat and ferritin to suggest acute blood loss. Acute blood loss related to the extensive bruising to the legs and from GI bleed. B12 low end of normal and folate frankly low at 2.0. Folate ordered. Suspect related to malnutrition. Replace B12. Serial HH and transfuse as needed Still a little low, continue to monitor 07/30: dropped a bit more, with associated shortness of breath with exertion, will transfuse 2 units today and reassess symptoms and hemoglobin 07/31: slight drop, monitor, check FOBT, consider GI vs heme/onc consult 08/01: stable (3) Lactic acidosis: Code(s): E87.20 - Acidosis, unspecified Status: Acute Assessment and Plan: Lactic acid was 4.7 on admission. Lactic has trended downward, still elevated, monitor, restart IVF UA noted. UCx negative, abx d/c See above (4) Bacteremia: Code(s): R78.81 - Bacteremia Status: Acute Assessment and Plan: Likely contaminant, recheck bld cx sent, follow Restart vanc due to possible bacteremia, MRSA negative, d/c vanc Completed 8 day course of rocephin 2g daily Repeat bld cx NGTD, d/c abx (5) Ulcerative esophagitis: Code(s): K22.10 - Ulcer of esophagus without bleeding Status: Acute Assessment and Plan: Patient presents emergency room with complaints of shortness of breath. He had an episode of nausea and vomiting x1 with coffee-ground emesis in the ED. Hemoglobin 8.6 on admission and dropped to 7.3. He was hypotensive with lactic acidosis. He was given IV fluids and 1U PRBC. His baseline hemoglobin is unknown. No further episodes of nausea and vomiting. He was started on Protonix and octreotide. GI consulted and patient underwent EGD 07/24 showing severe ulcerative esophagitis, diffuse gastritis and several superficial gastric ulcers. Biopsy taken. Continue Protonix. Appreciate GI input. (6) Electrolyte abnormality: Code(s): E87.8 - Other disorders of electrolyte and fluid balance, not elsewhere classified Status: Acute Assessment and Plan: Sodium low at 130 now better at 134. Non gap metabolic acidosis which could be related to lactic acidosis. He also had ketones in his urine so would consider malnutrition with ketosis. Serum bicarb slowly improving, Hypocalcemia but normal if corrected for the low albumin. low Albumin consistent with malnutrition. Potassium was low so will replace Resolved (7) Hyperbilirubinemia: Code(s): E80.6 - Other disorders of bilirubin metabolism Assessment and Plan: TBili 5.5 evenly split b/w direct and indirect. C
--- NOTE | 2023-08-01 08:37 | PM.DS ---
DS: Admitting Diagnosis Discharge Date 08/01/23 Admitting Diagnosis sob DS: Discharge Diagnosis Discharge Diagnosis (1) Hypotension: Code(s): I95.9 - Hypotension, unspecified Status: Acute Assessment and Plan: Patient was hypotensive on admission. He had some improvement possibly related to the transfusion. Patient again became hypotensive. MAP has been okay. Fluid bolus given. BP improved. Recurrent hypotension requiring IVF boluses, restart maint fluids Stable, midodrine added, increased dose to 10 mg TID recheck PCT/LA/CRP, unsure why continues to be hypotensive, give another 1L bolus--improving LA elevated again, will give bolus and increase maintenance fluids, PCT and CRP improving, no signs of tissue or infection, check troponin, suspect severe dehydration for some reason 08/01: LA resolved, unsure of etiology, cont IVF, monitor, cont midodrine, d/c soon to rehab pending (2) Acute blood loss anemia: Code(s): D62 - Acute posthemorrhagic anemia Status: Acute Assessment and Plan: Baseline hemoglobin unclear. Patient presumably has no medical problems and no baseline hemoglobin to compare. Hemoglobin was 8.6 and dropped to 7.3 requiring transfusion. Iron studies with low iron and low TIBC and normal TSat and ferritin to suggest acute blood loss. Acute blood loss related to the extensive bruising to the legs and from GI bleed. B12 low end of normal and folate frankly low at 2.0. Folate ordered. Suspect related to malnutrition. Replace B12. Serial HH and transfuse as needed Still a little low, continue to monitor 07/30: dropped a bit more, with associated shortness of breath with exertion, will transfuse 2 units today and reassess symptoms and hemoglobin 07/31: slight drop, monitor, check FOBT, consider GI vs heme/onc consult 08/01: stable (3) Lactic acidosis: Code(s): E87.20 - Acidosis, unspecified Status: Acute Assessment and Plan: Lactic acid was 4.7 on admission. Lactic has trended downward, still elevated, monitor, restart IVF UA noted. UCx negative, abx d/c See above (4) Bacteremia: Code(s): R78.81 - Bacteremia Status: Acute Assessment and Plan: Likely contaminant, recheck bld cx sent, follow Restart vanc due to possible bacteremia, MRSA negative, d/c vanc Completed 8 day course of rocephin 2g daily Repeat bld cx NGTD, d/c abx (5) Ulcerative esophagitis: Code(s): K22.10 - Ulcer of esophagus without bleeding Status: Acute Assessment and Plan: Patient presents emergency room with complaints of shortness of breath. He had an episode of nausea and vomiting x1 with coffee-ground emesis in the ED. Hemoglobin 8.6 on admission and dropped to 7.3. He was hypotensive with lactic acidosis. He was given IV fluids and 1U PRBC. His baseline hemoglobin is unknown. No further episodes of nausea and vomiting. He was started on Protonix and octreotide. GI consulted and patient underwent EGD 07/24 showing severe ulcerative esophagitis, diffuse gastritis and several superficial gastric ulcers. Biopsy taken. Continue Protonix. Appreciate GI input. (6) Electrolyte abnormality: Code(s): E87.8 - Other disorders of electrolyte and fluid balance, not elsewhere classified Status: Acute Assessment and Plan: Sodium low at 130 now better at 134. Non gap metabolic acidosis which could be related to lactic acidosis. He also had ketones in his urine so would consider malnutrition with ketosis. Serum bicarb slowly improving, Hypocalcemia but normal if corrected for the low albumin. low Albumin consistent with malnutrition. Potassium was low so will replace Resolved (7) Hyperbilirubinemia: Code(s): E80.6 - Other disorders of bilirubin metabolism Assessment and Plan: TBili 5.5 evenly split b/w direct and indirect. CT scan showing that the gallbladder is dilated to 4.5 cm but no evidenc
[2023-08-01 13:06] LABS: Lactic Acid Reflex 3.2 mmol/L (0.7-2.0)
--- NOTE | 2023-08-01 15:32 | PM.CNCAR ---
Assessment and Plan Assessment and plan (1) Hypotension: Code(s): I95.9 - Hypotension, unspecified Status: Acute Assessment and Plan: Patient with persistent hypotension and documented orthostasis. Ruling out bacteremia/sepsis. Remains mildly anemic with H&H drifting downwards. Most likely this is ?left over? from recent problem. May have a degree of autonomic neuropathy related to alcoholism. --agree with hydration --Increase po fluid and Na+ intake --continue midodrine 10 mg t.i.d. --compression stockings --encourage patient to have an upright posture abd be iyt if bed to ?train? his autonomic nervous system. May benefit fr Ph Tx, sitting and supine exercise etc. --a.m. cortisol to evaluate for [place]'s disease --Florinef .1 mg qd, though the patient already has some edema. (2) Acute blood loss anemia: Code(s): D62 - Acute posthemorrhagic anemia Status: Acute Assessment and Plan: Had coffee-ground emesis, anemia and iron deficiency as well as folate deficiency on admission. --had esophagitis, gastritis, minor gastric erosions --still anemic, H&H drifting down slightly. --daily H&H History of Present Illness History of Present Illness Consult date/time: 08/01/23 15:33 Reason For Visit: hemetmesis, Anemia Narrative: Scar Ray is a 63-year-old male whom we are asked to see at the request of Dr. Cedillo for advice and opinion regarding his orthostasis, in consultation. History of binge drinking, tobacco use. Mr. Ray was admitted on 07/23/2020 with hypotension and shortness of breath. He called EMS due to weakness and apparently he was briefly bradycardic, and given epinephrine 10 mics IV push and IV fluids. He was noted to have ecchymosis and anemia, with coffee-ground emesis. He arrived to the ER with a blood pressure in the 80s and a lactic acid level of 4.7. Bilirubin was 5.5 (thought to be due to resolving hematomas and ecchymoses, no hepatitis). Iron (46 with 21% saturation) and folate levels were low. Given IV fluids and transfused 3 units of packed red blood cells.. Endoscopy showed gastritis, superficial stomach ulcers and esophagitis. Since then he has had problems with ongoing hypotension, and received IV fluid boluses. He was started on midodrine 10 mg t.i.d. on 07/31/2023.. Blood culture was positive for Staph epidermidis, thought to be a contaminant. Repeat blood cultures pending. Patient states he has been healthy, last saw doctor was in 2003, no chronic medical conditions. Prior to a couple weeks prior to admission he had no problems, but now has some CAPONE. No dizziness, lightheadedness or syncope but not allowed to stand or walk. No problems with being up in a chair. No chest pain. PTT: 16.8 on admission. Haptoglobin normal. TSH borderline low 07/2023 Echo: 1. Left ventricular chamber dimension is normal. ? 2. Left ventricular systolic function is hyperdynamic, estimated at >70%. ? 3. There is no increased left ventricular wall thickness. ? 4. The left ventricular diastolic function is normal. ? 5. Left atrial chamber dimension is mildly enlarged. ? 6. There is no aortic valve stenosis. ? 7. There is trace mitral valve regurgitation. ? 8. There is mild tricuspid valve regurgitation. ? 9. No pulmonary hypertension, estimated pulmonary arterial systolic pressure is 30 mmHg. 07/23/2023 EKG: NSR rate 85, artifact but baseline EKG appears normal, personally reviewed. 07/31/2023 EKG: NSR rate 71, normal EKG. Personally reviewed. Chest x-ray on admission showed no acute cardiopulmonary disease CT abdomen reviewed, diffuse hepatic steatosis. Review of Systems Constitutional: Constitutional: Denies fever(s) Eyes: Eyes: Reports no additional eye complaints Cardiovascular: Cardiovascular: Denies chest pain, Denies pedal edema, Denies lightheadedness and Reports dyspnea Respiratory: Respiratory: Denies chest congestion and Reports dyspnea Gastroint
[2023-08-01 15:48] LABS: Reflex Lactic Acid Yes or No Add Lactic
--- NOTE | 2023-08-01 16:35 | PM.CNNEP ---
Assessment and Plan Assessment and plan (1) Hypotension: Code(s): I95.9 - Hypotension, unspecified Status: Acute Assessment and Plan: persistent since admission complicated by symptomatic orthostasis etiology not entirely clear element of autonomic dysfunction(?) continue midodrine consider adding compression stockings or KIM wraps check cortisol level follow-up on pending testing started on florinef by Cardiology follow orthostatic BP and symptoms I will continue to follow the patient with you while remains hospitalized and make further recommendations as needed. Thank you for allowing me to participate in care this patient. History of Present Illness Reason for Consult Consult date: 08/01/23 Reason for consult: Other (orthostatic hypotension) Chief Complaint Chief complaint: hemetmesis, Anemia History of Present Illness Narrative: The patient is a 63-year-old male with a past medical history as outlined below who initially presented to [facility] emergency room several days ago with shortness of breath and hypotension. He apparently called EMS due to severe weakness which is thought to be secondary to the hypotension and associated shortness of breath. Subsequent workup and evaluation in the emergency demonstrated evidence of bradycardia and significant ecchymoses and anemia by blood work. He apparently off the gave a history of coffee-ground emesis as well. His systolic BP was in the 80 systolic on presentation to the emergency room in association with multiple laboratory abnormalities including a lactic acidosis, hyperbilirubinemia and of course, his severe anemia. He was given IV fluids and subsequently transfused with packed red blood cells. He was subsequently admitted to the hospital for further evaluation and therapy. During his hospital stay, gastroenterology was consulted and he subsequently underwent a endoscopy which showed gastritis, superficial stomach ulcers, and esophagitis. He has remained on supportive therapy with ongoing monitoring of his hemoglobin and hematocrit since his hospitalization began. Despite aggressive IV fluids and packed red blood cell transfusion, the patient continues to have significant hypotension as well as orthostatic hypotension which prompted Nephrology consultation. He was just recently started on midodrine 10 mg t.i.d. and despite ongoing IV fluid resuscitation, he continues to have possible orthostasis. He apparently is quite symptomatic with the orthostasis as he feels quite dizzy and lightheaded whenever he tries to stand. He does not recall ever being told he had issues or problems like this in the past although it should be noted that the last time he saw a doctor was in 2003 and up until this hospitalization, he states that he has been reasonably healthy. Currently, the time my evaluation, he does not appear to be in acute distress. Review of Systems Review of Systems: As per HPI. [facility] Past Medical History Medical History No significant past medical history Patient denies significant medical history. Tobacco dependence Surgical History Surgical History No history of previous surgery Family History Family History Mother Diabetes mellitus Vascular disease Cerebrovascular accident Sibling Cancer Social History Social History Social History: Never , lives alone, no children. Used to work at [employer]. Surrogate decision maker: Patient does not designate a surrogate decision maker at this time. Code status: Full code. Smoking packs per day: 1 Smoking cigarettes per day: 20.0 Years smoked: 45 Smoking pack-years: 45.00 Smoking status: Current every day
[2023-08-01 17:11] LABS: Lactic Acid 3.4 mmol/L (0.7-2.0)
[2023-08-01] MEDS: FLUDROCORTISONE ACETATE 0.1 MG TABLET PO (17:13)
[2023-08-01] MEDS: LACTATED RINGERS 1,000 ML 999 ML IV CONT ×2 (18:32→19:53)
[2023-08-01 19:56] LABS: Appearance Urine Clear (Clear); Bacteria Urine None Seen /hpf; Bilirubin Urine 1+ (Negative); Blood Urine Negative (Negative); Color Urine Dark Yellow (Yellow); Glucose Urine UA Negative (Negative); Ketones Urine Negative (Negative); Leukocyte Esterase Ur Trace LEU/UL (Negative); Nitrate Urine Negative (Negative); Non Pathogenic Casts 0-2; Protein Urine Negative (Negative); Specific Grav Ur 1.014 (1.001-1.035); Squamous Epithelial Cell Urine None seen /hpf (Few); Urobilinogen Urine >=8.0 mg/dL (<2.0); WBC Urine 0-5 /hpf
[2023-08-01 19:57] LABS: Add Urine Microscopic? YES
[2023-08-01 20:48] LABS: IFOB Positive Control Positive; Immunochemical Fecal Occult Bl Negative (N)
[2023-08-02] VITALS (10 sets, daily range): BP systolic 72–104; BP diastolic 44–60; PULSE 66–96; RESP 16–20; TEMP 36.6–36.9; O2SAT 96–100
[2023-08-02] MEDS: SODIUM CHLORIDE 0.9% IV 1,000 ML 250 ML IV CONT ×3 (01:12→12:13)
[2023-08-02 05:12] LABS: Basophils Percent Auto 0.8 % (0.2-1.2); Eosinophils Absolute Auto 0.1 K/mm3 (0-0.3); Hematocrit 23.1 % (42.0-52.0); Hemoglobin 7.4 g/dL (14.0-18.0); Immature Granulocyte Absolute 0.04 K/mm3 (0.00-0.031); Immature Granulocyte Percent A 1.1 % (0-0.5); Lymphocytes Absolute Auto 0.98 K/mm3 (0.9-3.2); Lymphocytes Percent Auto 27.4 % (18.3-44.2); Mean Corpuscular Hemoglobin 31.1 pg (26-34); Mean Corpuscular Volume 97.1 fl (80-100); Mean Platelet Volume 10.8 fl (7.4-10.4); Monocytes Absolute Auto 0.4 K/mm3 (0.1-0.6); Monocytes Percent Auto 10.1 % (2.6-8.5); Neutrophils Absolute Auto 2.1 K/mm3 (1.3-6.7); Neutrophils Percent Auto 58.6 % (45.5-73.1); Platelet Count Result 178 k/mm3 (150-375); Red Blood Count 2.38 M/mm3 (4.6-6.20); Red Cell Distribution Width 18.6 % (11.5-14.5); White Blood Count 3.6 K/mm3 (4.5-10.0)
[2023-08-02 05:19] LABS: Alanine Aminotransferase 16 U/L (6-50); Albumin Level 1.7 g/dL (3.5-5.1); Alkaline Phosphatase 61 U/L (38-126); Anion Gap 3 mmol/L (8-16); Aspartate Amino Transferase 30 U/L (17-59); Blood Urea Nitrogen 9 mg/dL (9-20); Calcium 6.6 mg/dL (8.4-10.2); Carbon Dioxide 18 mmol/L (22-30); Chloride 110 mmol/L (98-107); Estimated CRCL calculation 140 ml/min; Estimated Glomerular Filt Rate > 60; Glucose 69 mg/dL (65-110); Potassium 3.1 mmol/L (3.4-5.0); Sodium 131 mmol/L (137-145)
[2023-08-02 06:24] LABS: Cortisol Baseline 9.58 ug/dL
[2023-08-02] MEDS: CYANOCOBALAMIN 1,000 MCG TABLET 1000 MCG PO (11:04)
[2023-08-02] MEDS: FLUDROCORTISONE ACETATE 0.1 MG TABLET PO (11:04)
[2023-08-02] MEDS: THIAMINE HCL 100 MG TABLET PO (11:05)
[2023-08-02] MEDS: MIDODRINE HCL 2.5 MG TABLET 10 MG PO ×3 (11:05→17:41)
[2023-08-02] MEDS: FOLIC ACID 1 MG TABLET PO (11:06)
[2023-08-02] MEDS: PANTOPRAZOLE SODIUM IV 40 MG VIAL IV PUSH (11:13)
--- NOTE | 2023-08-02 14:31 | PM.IMPN ---
Progress Note: A&P Assessment and Plan (1) Hypotension: Code(s): I95.9 - Hypotension, unspecified Status: Acute Assessment and Plan: Patient was hypotensive on admission. He had some improvement possibly related to the transfusion. Patient again became hypotensive. MAP has been okay. Fluid bolus given. BP improved. Recurrent hypotension requiring IVF boluses so he was restarted on NS at 250ml/hr Still hypotensive despite Midodrine and Florinef. Cortisol levels okay. TSH low but FT4 normal. LA 3.4 today. Hypoperfusion? Albumin still low at 1.7 so suspect low effective circulating volume. He is eating well. UA showing negative protein (but may have reached a low level that not measured in urine). 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 Discussed with nephrology. Will stop IV fluids. Albumin x 1. Will monitor. Continue Midodrine and Florinef. Add [place] hose. (2) Acute blood loss anemia: Code(s): D62 - Acute posthemorrhagic anemia Status: Acute Assessment and Plan: Baseline hemoglobin unclear. Patient presumably has no medical problems and no baseline hemoglobin to compare. Hemoglobin was 8.6 and dropped to 7.3 requiring transfusion. Iron studies with low iron and low TIBC and normal TSat and ferritin to suggest acute blood loss. Acute blood loss related to the extensive bruising to the legs and from GI bleed. B12 low end of normal and folate frankly low at 2.0. Folate ordered. Suspect related to malnutrition. Replace B12. Serial HH and transfuse as needed Hgb dropped from 9.7 aftre transfusion to 7.4. Could be related to IV fluids. Stop IV fluids Monitor (3) Lactic acidosis: Code(s): E87.20 - Acidosis, unspecified Status: Acute Assessment and Plan: Lactic acid was 4.7 on admission. Lactic has trended downward, still elevated IV fluids resumed UA noted. UCx negative. Abx stopped LA still elevated. Repeat. (4) Bacteremia: Code(s): R78.81 - Bacteremia Status: Acute Assessment and Plan: BCx positive for Staph Epi (1of2). Likely contaminant, recheck bld cx sent, follow Restart vanc due to possible bacteremia, MRSA negative, d/c vanc Completed 8 day course of rocephin 2g daily Repeat bld cx negative. Off all abx now (5) Ulcerative esophagitis: Code(s): K22.10 - Ulcer of esophagus without bleeding Status: Acute Assessment and Plan: Patient presents emergency room with complaints of shortness of breath. He had an episode of nausea and vomiting x1 with coffee-ground emesis in the ED. Hemoglobin 8.6 on admission and dropped to 7.3. He was hypotensive with lactic acidosis. He was given IV fluids and 1U PRBC on 07/23. His baseline hemoglobin is unknown. No further episodes of nausea and vomiting. He was started on Protonix and octreotide. GI consulted and patient underwent EGD 07/24 showing severe ulcerative esophagitis, diffuse gastritis and several superficial gastric ulcers. Biopsy taken. Hgb dropped again to 6.9 and received 2U PRBC on 07/30 Continue Protonix. Appreciate GI input. (6) Electrolyte abnormality: Code(s): E87.8 - Other disorders of electrolyte and fluid balance, not elsewhere classified Status: Acute Assessment and Plan: Sodium low at 130;s but stable. Non gap metabolic acidosis which could be related to lactic acidosis. He also had ketones in his urine so would consider malnutrition with ketosis. Serum bicarb still low. Hypocalcemia but normal if corrected for the low albumin. low Albumin consistent with malnutrition. Potassium was low so will replace Start oral bicarb? (7) Hyperbilirubinemia: Code(s): E80.6 - Other disorders of bilirubin metabolism Assessment and Plan: TBili 5.5 evenly split b/w direct and indirect. CT scan showing that the gallbladder is dilated to 4.5 cm but no evidence of gallbladder wall thickening or pericholecystic inflammatory stranding. The intra
--- NOTE | 2023-08-02 14:40 | PM.PNNEP ---
Progress Note: A&P Assessment and Plan (1) Hypotension: Code(s): I95.9 - Hypotension, unspecified Status: Acute Assessment and Plan: persistent since admission and with current interventions complicated by symptomatic orthostasis etiology not entirely clear element of autonomic dysfunction(?) evaluation noted: TSH low but free T4 okay cortisol okay low albumin -- possible low effective circulating volume -- consider IV albumin? continue midodrine. florinef, and Colby hose stockings follow orthostatic BP and symptoms Will continue to follow Subjective Date/time seen: 08/02/23 14:40 Interval history: Follow-up for orthostatic hypotension. Reports being able to stand without dizziness/lightheadednesss today; reports some mild sypnea on exertion, no other acute issues/events overnight. Exam Narrative: General: WD/WN male in NAD Heart: normal S1 and S2; no rub Lungs: clear to auscultation Abdomen: soft, nontender, nondistended, positive bowel sounds Extremities: no cyanosis or clubbing; trace edema Skin: warm and dry Objective Data Vital Signs Vital Signs: Vital Signs Temp Pulse Resp BP Pulse Ox O2 Del Method 08/02/23 13:56 97.8 F 73 20 84/54 L 100 08/02/23 11:00 Room Air 08/02/23 13:34 90/60 L 08/02/23 11:00 94/60 L 08/02/23 11:33 72/44 L 08/02/23 11:32 83/46 L 08/02/23 11:32 82/45 L 08/02/23 05:49 98.4 F 72 20 84/53 L 96 08/01/23 21:30 Room Air 08/01/23 22:00 99.0 F 67 24 H 102/53 L 97 08/01/23 20:13 76 90/48 L 100 08/01/23 20:13 99 108/42 L 100 08/01/23 20:00 98.6 F 68 24 H 99/55 L 100 Intake/Output Intake/Output: Intake & Output 07/30/23 07/31/23 08/01/23 08/02/23 23:59 23:59 23:59 23:59 Intake Total 3740 5815 6060 3860 Output Total 3575 3050 4475 4125 Balance 165 2765 1585 -265 Meds/Results Medications: Active Medications Generic Name Dose Route Start Last Admin Trade Name Alvin PRN Reason Stop Dose Admin Cyanocobalamin 1,000 mcg 07/25/23 09:00 08/02/23 11:04 Cyanocobalamin 1,000 Mcg Tablet PO 1,000 mcg QAM [facility] Administration Fludrocortisone Acetate 0.1 mg 08/01/23 16:25 08/02/23 11:04 Fludrocortisone Acetate 0.1 Mg Tablet PO 0.1 mg DAILY@0800 [facility] Administration Folic Acid 1 mg 07/24/23 09:00 08/02/23 11:06 Folic Acid 1 Mg Tablet PO 1 mg DAILY [facility] Administration Midodrine 10 mg 07/31/23 13:00 08/02/23 13:50 Midodrine Hcl 2.5 Mg Tablet PO 10 mg TID [facility] Administration Ondansetron HCl 4 mg 07/23/23 20:05 Ondansetron Inj 4 Mg/2 Ml Vial IV PUSH Q4H PRN Nausea Pantoprazole Sodium 40 mg 08/02/23 21:00 Pantoprazole 40 Mg Tablet PO Q12HR [facility] Thiamine HCl 100 mg 07/24/23 09:00 08/02/23 11:05 Thiamine Hcl 100 Mg Tablet PO 100 mg QAM [facility] Administration Radiology Results: ITS Impressions Chest X-Ray 07/23/23 15:40 IMPRESSION: 1. No acute cardiopulmonary disease. Abdomen/Pelvis CT 07/23/23 16:09 IMPRESSION: 1. No acute intra-abdominal/pelvic process. 2. Diffuse hepatic steatosis. Lower Extremity CTA 07/23/23 19:33 IMPRESSION: 1. Small amount of scattered atherosclerotic plaque in the arteries of the pelvis in the bilateral lower limbs with no discrete hemodynamically significant stenosis. 2. The right peroneal and left anterior tibial arteries become atretic in the distal calves with 2 vessel runoff into both feet provided by the right anterior tibial and posterior tibial arteries and left posterior tibial and peroneal arteries. Upper Quadrant Ultrasound 07/24/23 20:02 IMPRESSION: 1. Diffuse hepatic steatosis. Venous Doppler Study 08/02/23 08:56 IMPRESSION: 1: No lower extremity deep venous thrombosis. Ankle Brachial Index 08/02/23 10:04 IMPRESSION: 1. Mild arterial occlusive disease to the left lower limb with mild
--- NOTE | 2023-08-02 14:40 | P.PNNP_ITS ---
Progress Note: A&P Assessment and Plan (1) Hypotension: Code(s): I95.9 - Hypotension, unspecified Status: Acute Assessment and Plan: * persistent since admission and with current interventions * complicated by symptomatic orthostasis * etiology not entirely clear * element of autonomic dysfunction(?) * evaluation noted: * TSH low but free T4 okay * cortisol okay * low albumin -- possible low effective circulating volume -- consider IV albumin? * continue midodrine. florinef, and Colby hose stockings * follow orthostatic BP and symptoms Will continue to follow Subjective Date/time seen: 08/02/23 14:40 Interval history: Follow-up for orthostatic hypotension. Reports being able to stand without dizziness/lightheadednesss today; reports some mild sypnea on exertion, no other acute issues/events overnight. Exam Narrative: General: WD/WN male in NAD Heart: normal S1 and S2; no rub Lungs: clear to auscultation Abdomen: soft, nontender, nondistended, positive bowel sounds Extremities: no cyanosis or clubbing; trace edema Skin: warm and dry Objective Data Vital Signs Vital Signs: Vital Signs Temp Pulse Resp BP Pulse Ox O2 Del Method 08/02/23 13:56 97.8 F 73 20 84/54 L 100 08/02/23 11:00 Room Air 08/02/23 13:34 90/60 L 08/02/23 11:00 94/60 L 08/02/23 11:33 72/44 L 08/02/23 11:32 83/46 L 08/02/23 11:32 82/45 L 08/02/23 05:49 98.4 F 72 20 84/53 L 96 08/01/23 21:30 Room Air 08/01/23 22:00 99.0 F 67 24 H 102/53 L 97 08/01/23 20:13 76 90/48 L 100 08/01/23 20:13 99 108/42 L 100 08/01/23 20:00 98.6 F 68 24 H 99/55 L 100 Intake/Output Intake/Output: Intake & Output 07/30/23 07/31/23 08/01/23 08/02/23 23:59 23:59 23:59 23:59 Intake Total 3740 5815 6060 3860 Output Total 3575 3050 4475 4125 Balance 165 2765 1585 -265 Meds/Results Medications: Active Medications Generic Name Dose Route Start Last Admin Trade Name Freq PRN Reason Stop Dose Admin Cyanocobalamin 1,000 mcg 07/25/23 09:00 08/02/23 11:04 Cyanocobalamin 1,000 Mcg Tablet PO 1,000 mcg QAM [facility] Administration Fludrocortisone Acetate 0.1 mg 08/01/23 16:25 08/02/23 11:04 Fludrocortisone Acetate 0.1 Mg Tablet PO 0.1 mg DAILY@0800 [facility] Administration Folic Acid 1 mg 07/24/23 09:00 08/02/23 11:06 Folic Acid 1 Mg Tablet PO 1 mg DAILY [facility] Administration Midodrine 10 mg 07/31/23 13:00 08/02/23 13:50 Midodrine Hcl 2.5 Mg Tablet PO 10 mg TID [facility] Administration Ondansetron HCl 4 mg 07/23/23 20:05 Ondansetron Inj 4 Mg/2 Ml Vial IV PUSH Q4H PRN Nausea Pantoprazole Sodium 40 mg 08/02/23 21:00 Pantoprazole 40 Mg Tablet PO Q12HR [facility] Thiamine HCl 100 mg 07/24/23 09:00 08/02/23 11:05 Thiamine Hcl 100 Mg Tablet PO 100 mg QAM [facility] Administration Radiology Results: ITS Impressions Chest X-Ray 07/23/23 15:40 IMPRESSION:
[2023-08-02] MEDS: ALBUMIN HUMAN 25% 25 GM/100 ML 100 ML IVPB (15:03)
[2023-08-02 15:27] LABS: Lactic Acid Reflex 2.4 mmol/L (0.7-2.0); Magnesium 1.8 mg/dL (1.6-2.3); Potassium 3.4 mmol/L (3.4-5.0)
[2023-08-02] MEDS: MAGNESIUM SULF 2 GM/WATER 50ML 2 GM/50 ML BAG IVPB (17:50)
[2023-08-02] MEDS: POTASSIUM CHLORIDE 20 MEQ ER TABLET 40 MEQ PO (17:50)
[2023-08-02 18:12] LABS: Reflex Lactic Acid Yes or No Add Lactic
[2023-08-02 19:22] LABS: Lactic Acid 2.1 mmol/L (0.7-2.0)
[2023-08-02] MEDS: PANTOPRAZOLE 40 MG TABLET PO (20:29)
[2023-08-03] VITALS (11 sets, daily range): BP systolic 75–102; BP diastolic 42–60; PULSE 69–101; RESP 16–20; TEMP 36.8–37.1; O2SAT 97–100
[2023-08-03 05:02] LABS: Basophils Absolute Auto 0.1 K/mm3 (0.0-0.1); Basophils Percent Auto 1.3 % (0.2-1.2); Eosinophils Absolute Auto 0.1 K/mm3 (0-0.3); Eosinophils Percent Auto 1.9 % (0-4.4); Hemoglobin 7.4 g/dL (14.0-18.0); Immature Granulocyte Absolute 0.04 K/mm3 (0.00-0.031); Immature Granulocyte Percent A 1.1 % (0-0.5); Lymphocytes Absolute Auto 0.95 K/mm3 (0.9-3.2); Lymphocytes Percent Auto 25.5 % (18.3-44.2); Mean Corpuscular HGB Conc 32.2 g/dl (32-36); Mean Corpuscular Hemoglobin 31.4 pg (26-34); Mean Corpuscular Volume 97.5 fl (80-100); Mean Platelet Volume 10.3 fl (7.4-10.4); Monocytes Absolute Auto 0.4 K/mm3 (0.1-0.6); Monocytes Percent Auto 9.9 % (2.6-8.5); Neutrophils Absolute Auto 2.2 K/mm3 (1.3-6.7); Neutrophils Percent Auto 60.3 % (45.5-73.1); Platelet Count Result 183 k/mm3 (150-375); Red Blood Count 2.36 M/mm3 (4.6-6.20); Red Cell Distribution Width 18.2 % (11.5-14.5); White Blood Count 3.7 K/mm3 (4.5-10.0)
[2023-08-03 05:11] LABS: Alanine Aminotransferase 17 U/L (6-50); Albumin Level 2.1 g/dL (3.5-5.1); Alkaline Phosphatase 66 U/L (38-126); Anion Gap 5 mmol/L (8-16); Aspartate Amino Transferase 32 U/L (17-59); Bilirubin,Total 2.3 mg/dL (0.2-1.3); Blood Urea Nitrogen 8 mg/dL (9-20); Calcium 6.9 mg/dL (8.4-10.2); Carbon Dioxide 18 mmol/L (22-30); Chloride 107 mmol/L (98-107); Estimated CRCL calculation 125 ml/min; Estimated Glomerular Filt Rate > 60; Glucose 75 mg/dL (65-110); Potassium 3.6 mmol/L (3.4-5.0); Sodium 130 mmol/L (137-145)
[2023-08-03 05:16] LABS: Lactic Acid Reflex 0.8 mmol/L (0.7-2.0)
[2023-08-03] MEDS: FLUDROCORTISONE ACETATE 0.1 MG TABLET PO (08:27)
[2023-08-03] MEDS: THIAMINE HCL 100 MG TABLET PO (08:27)
[2023-08-03] MEDS: MIDODRINE HCL 2.5 MG TABLET 10 MG PO ×3 (08:27→16:42)
[2023-08-03] MEDS: CYANOCOBALAMIN 1,000 MCG TABLET 1000 MCG PO (08:28)
[2023-08-03] MEDS: PANTOPRAZOLE 40 MG TABLET PO ×2 (08:28→21:25)
[2023-08-03] MEDS: FOLIC ACID 1 MG TABLET PO (08:28)
[2023-08-03] MEDS: ALBUMIN HUMAN 25% 25 GM/100 ML 100 ML IVPB (08:30)
--- NOTE | 2023-08-03 09:08 | PM.IMPN ---
Progress Note: A&P Assessment and Plan (1) Hypotension: Code(s): I95.9 - Hypotension, unspecified Status: Acute Assessment and Plan: Patient was hypotensive on admission. He had some improvement possibly related to the transfusion. Patient again became hypotensive. MAP has been okay. Fluid bolus given. BP improved. Recurrent hypotension requiring IVF boluses Still hypotensive despite Midodrine and Florinef. Cortisol levels okay. TSH low but FT4 normal. Was on NS 250ml/hr LA 3.4 yesterday. Hypoperfusion? Albumin was low at 1.7 so suspect low effective circulating volume. He is eating well. UA showing negative protein (but may have reached a low level that not measured in urine). 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 Discussed with nephrology. Fluids stopped and Albumin x 1 given 08/02. BP better but having scrotal edema now. Continue Midodrine and Florinef. Continue Colby hose. Scrotal elevation. Repeat albumin x1. Bladder US to exclude urine retention (2) Acute blood loss anemia: Code(s): D62 - Acute posthemorrhagic anemia Status: Acute Assessment and Plan: Baseline hemoglobin unclear but suspected to be normal since patient presumably has no medical problems. No baseline hemoglobin to compare. Hemoglobin was 8.6 on admission and dropped to 7.3 requiring transfusion. Iron studies with low iron and low TIBC and normal TSat and ferritin to suggest acute blood loss. Acute blood loss related to the extensive bruising to the legs and from GI bleed. B12 low end of normal and folate frankly low at 2.0. Folate ordered. Suspect related to malnutrition. Replace B12. Serial HH and transfuse as needed Hgb dropped from 9.7 after transfusion on 07/30 to 7.4. Could be related to IV fluids. IV fluids stopped. Hgb unchagned today Monitor (3) Lactic acidosis: Code(s): E87.20 - Acidosis, unspecified Status: Acute Assessment and Plan: Lactic acid was 4.7 on admission. Lactic has trended downward but still elevated IV fluids resumed but now stopped UA noted. UCx negative. Abx stopped LA was elevated but normal after repeat since BP improved. Suspect hypoperfusion causing lactic acidosis. (4) Bacteremia: Code(s): R78.81 - Bacteremia Status: Acute Assessment and Plan: BCx positive for Staph Epi (1of2). Likely contaminant, recheck bld cx sent, follow Restart vanc due to possible bacteremia, MRSA negative, d/c vanc Completed 8 day course of rocephin 2g daily Repeat bld cx negative. Off all abx now (5) Ulcerative esophagitis: Code(s): K22.10 - Ulcer of esophagus without bleeding Status: Acute Assessment and Plan: Patient presents emergency room with complaints of shortness of breath. He had an episode of nausea and vomiting x1 with coffee-ground emesis in the ED. Hemoglobin 8.6 on admission and dropped to 7.3. He was hypotensive with lactic acidosis. He was given IV fluids and 1U PRBC on 07/23. His baseline hemoglobin is unknown. No further episodes of nausea and vomiting. He was started on Protonix and octreotide. GI consulted and patient underwent EGD 07/24 showing severe ulcerative esophagitis, diffuse gastritis and several superficial gastric ulcers. Biopsy taken. Hgb dropped again to 6.9 and received 2U PRBC on 07/30 Continue Protonix. Appreciate GI input. (6) Electrolyte abnormality: Code(s): E87.8 - Other disorders of electrolyte and fluid balance, not elsewhere classified Status: Acute Assessment and Plan: Sodium low at 130's but stable. Non gap metabolic acidosis which could be related to lactic acidosis. He also had ketones in his urine so would consider malnutrition with ketosis. Serum bicarb still low. Hypocalcemia but normal if corrected for the low albumin. low Albumin consistent with malnutrition. Potassium normal now Start oral bicarb (7) Hyperbilirubinemia: Code(s): E80.6 - Other disorders of
--- NOTE | 2023-08-03 10:26 | PCPTNOTE ---
Attempted to see patient for PT, however per RN patient's blood pressures have been really low and asked PT to wait on therapy and to check back after lunch.
[2023-08-03] MEDS: SODIUM BICARBONATE TAB 650 MG TABLET PO ×2 (11:12→16:42)
--- NOTE | 2023-08-03 12:03 | P.PNNP_ITS ---
Progress Note: A&P Assessment and Plan (1) Hypotension: Code(s): I95.9 - Hypotension, unspecified Status: Acute Assessment and Plan: * persistent since admission and with current interventions * complicated by symptomatic orthostasis * etiology not entirely clear * element of autonomic dysfunction(?) * evaluation noted: * TSH low but free T4 okay * cortisol okay * low albumin -- possible low effective circulating volume * continue midodrine. florinef, and Colby hose stockings * repeat IV albumin and consider scheduled dosing * consider diuretics for edema but doubt will tolerate given BP issues * follow orthostatic BP and symptoms Will continue to follow Subjective Date/time seen: 08/03/23 12:03 Interval history: Follow-up for orthostatic hypotension. Frequent urination noted which led to poor sleep in general; tolerated IV albumin infusion; now having issues/problems with scrotal edema; no other issues/events overnight or earlier this moring. Exam Narrative: General: WD/WN male in NAD Heart: normal S1 and S2; no rub Lungs: clear to auscultation Abdomen: soft, nontender, nondistended, positive bowel sounds; + scrotal edema Extremities: no cyanosis or clubbing; trace edema Skin: warm and intact Objective Data Vital Signs Vital Signs: Vital Signs Temp Pulse Resp BP Pulse Ox O2 Del Method 08/03/23 10:20 97 Room Air 08/03/23 09:32 80/58 L 08/03/23 09:31 102/60 08/03/23 09:31 75/42 L 08/02/23 22:17 99 Room Air 08/03/23 04:39 98.4 F 73 16 97/49 L 97 08/02/23 20:06 96 91/51 L 08/02/23 20:03 73 94/46 L 08/02/23 19:59 104/50 L 08/02/23 19:59 98.1 F 66 16 104/50 L 99 Intake/Output Intake/Output: Intake & Output 07/31/23 08/01/23 08/02/23 08/03/23 23:59 23:59 23:59 23:59 Intake Total 5815 6060 4500 690 Output Total 3050 4475 5025 3300 Balance 7492 9645 -805 -6334 Meds/Results Medications: Active Medications Generic Name Dose Route Start Last Admin Trade Name Freq PRN Reason Stop Dose Admin Cyanocobalamin 1,000 mcg 07/25/23 09:00 08/03/23 08:28 Cyanocobalamin 1,000 Mcg Tablet PO 1,000 mcg QAM [facility] Administration Fludrocortisone Acetate 0.1 mg 08/01/23 16:25 08/03/23 08:27 Fludrocortisone Acetate 0.1 Mg Tablet PO 0.1 mg DAILY@0800 [facility] Administration Folic Acid 1 mg 07/24/23 09:00 08/03/23 08:28 Folic Acid 1 Mg Tablet PO 1 mg DAILY [facility] Administration Midodrine 10 mg 07/31/23 13:00 08/03/23 16:42 Midodrine Hcl 2.5 Mg Tablet PO 10 mg TID [facility] Administration Ondansetron HCl 4 mg 07/23/23 20:05 Ondansetron Inj 4 Mg/2 Ml Vial IV PUSH Q4H PRN Nausea Pantoprazole Sodium 40 mg 08/02/23 21:00 08/03/23 08:28 Pantoprazole 40 Mg Tablet PO 40 mg Q12HR [facility] Administration Sodium Bicarbonate 650 mg 08/03/23 09:30 08/03/23 16:42 Sodium Bicarbonate Tab 650 Mg Tablet PO 650 mg BID [facility] Administration Thiamine HCl 100 mg 07/24/23 09:00 08/03/23 08:27 Thiamine Hcl 100 Mg
--- NOTE | 2023-08-03 12:03 | PM.PNNEP ---
Progress Note: A&P Assessment and Plan (1) Hypotension: Code(s): I95.9 - Hypotension, unspecified Status: Acute Assessment and Plan: persistent since admission and with current interventions complicated by symptomatic orthostasis etiology not entirely clear element of autonomic dysfunction(?) evaluation noted: TSH low but free T4 okay cortisol okay low albumin -- possible low effective circulating volume continue midodrine. florinef, and Colby hose stockings repeat IV albumin and consider scheduled dosing consider diuretics for edema but doubt will tolerate given BP issues follow orthostatic BP and symptoms Will continue to follow Subjective Date/time seen: 08/03/23 12:03 Interval history: Follow-up for orthostatic hypotension. Frequent urination noted which led to poor sleep in general; tolerated IV albumin infusion; now having issues/problems with scrotal edema; no other issues/events overnight or earlier this moring. Exam Narrative: General: WD/WN male in NAD Heart: normal S1 and S2; no rub Lungs: clear to auscultation Abdomen: soft, nontender, nondistended, positive bowel sounds; + scrotal edema Extremities: no cyanosis or clubbing; trace edema Skin: warm and intact Objective Data Vital Signs Vital Signs: Vital Signs Temp Pulse Resp BP Pulse Ox O2 Del Method 08/03/23 10:20 97 Room Air 08/03/23 09:32 80/58 L 08/03/23 09:31 102/60 08/03/23 09:31 75/42 L 08/02/23 22:17 99 Room Air 08/03/23 04:39 98.4 F 73 16 97/49 L 97 08/02/23 20:06 96 91/51 L 08/02/23 20:03 73 94/46 L 08/02/23 19:59 104/50 L 08/02/23 19:59 98.1 F 66 16 104/50 L 99 Intake/Output Intake/Output: Intake & Output 07/31/23 08/01/23 08/02/23 08/03/23 23:59 23:59 23:59 23:59 Intake Total 5815 6060 4500 690 Output Total 3050 4475 5025 3300 Balance 2100 8510 -450 -4461 Meds/Results Medications: Active Medications Generic Name Dose Route Start Last Admin Trade Name Freq PRN Reason Stop Dose Admin Cyanocobalamin 1,000 mcg 07/25/23 09:00 08/03/23 08:28 Cyanocobalamin 1,000 Mcg Tablet PO 1,000 mcg QAM [facility] Administration Fludrocortisone Acetate 0.1 mg 08/01/23 16:25 08/03/23 08:27 Fludrocortisone Acetate 0.1 Mg Tablet PO 0.1 mg DAILY@0800 [facility] Administration Folic Acid 1 mg 07/24/23 09:00 08/03/23 08:28 Folic Acid 1 Mg Tablet PO 1 mg DAILY [facility] Administration Midodrine 10 mg 07/31/23 13:00 08/03/23 16:42 Midodrine Hcl 2.5 Mg Tablet PO 10 mg TID [facility] Administration Ondansetron HCl 4 mg 07/23/23 20:05 Ondansetron Inj 4 Mg/2 Ml Vial IV PUSH Q4H PRN Nausea Pantoprazole Sodium 40 mg 08/02/23 21:00 08/03/23 08:28 Pantoprazole 40 Mg Tablet PO 40 mg Q12HR [facility] Administration Sodium Bicarbonate 650 mg 08/03/23 09:30 08/03/23 16:42 Sodium Bicarbonate Tab 650 Mg Tablet PO 650 mg BID [facility] Administration Thiamine HCl 100 mg 07/24/23 09:00 08/03/23 08:27 Thiamine Hcl 100 Mg Tablet PO 100 mg QAM [facility] Administration Radiology Results: ITS Impressions Chest X-Ray 07/23/23 15:40 IMPRESSION: 1. No acute cardiopulmonary disease. Abdomen/Pelvis CT 07/23/23 16:09 IMPRESSION: 1. No acute intra-abdominal/pelvic process. 2. Diffuse hepatic steatosis. Lower Extremity CTA 07/23/23 19:33 IMPRESSION: 1. Small amount of scattered atherosclerotic plaque in the arteries of the pelvis in the bilateral lower limbs with no discrete hemodynamically significant stenosis. 2. The right peroneal and left anterior tibial arteries become atretic in the distal calves with 2 vessel runoff into both feet provided by the right anterior tibial and posterior tibial arteries and left posterior tibial and peroneal arteries. Upper Quadrant Ultrasound 07/24/23 20:02 IMPRESSION: 1. Diffuse hepatic steatosis. Venous
--- NOTE | 2023-08-03 14:31 | PC.NURSE ---
On 08/03/23, the student, [Ciarra Matute], provided care and completed [facility] documentation on this patient. I have reviewed the student's documentation and agree with the findings.
--- NOTE | 2023-08-03 17:54 | PM.PNCARD ---
Progress Note: A&P Assessment and Plan (1) Hypotension: Code(s): I95.9 - Hypotension, unspecified Status: Acute Assessment and Plan: Patient with persistent hypotension and documented orthostasis. Ruling out bacteremia/sepsis. Remains mildly anemic with H&H drifting downwards. Most likely orthostasis is ?left over? from recent health problems. May have a degree of autonomic neuropathy related to alcoholism. --continue po fluid and Na+ intake, high protein intake --continue midodrine 10 mg t.i.d.; can go up to 15 mg t.i.d. if needed --compression stockings --encourage patient to have an upright posture and out of bed to ?train? his autonomic nervous system. Continue Ph Tx, sitting and supine exercise etc. --continue Florinef .1 mg qd, though the patient already has some edema. (2) Acute blood loss anemia: Code(s): D62 - Acute posthemorrhagic anemia Status: Acute Assessment and Plan: Had coffee-ground emesis, anemia and iron deficiency as well as folate deficiency on admission. --had esophagitis, gastritis, minor gastric erosions --still anemic, H&H drifting down slightly. --daily H&H (3) Low serum total protein level: Code(s): R79.89 - Other specified abnormal findings of blood chemistry Status: Acute Assessment and Plan: Encourage high-protein intake, nutritional supplements (4) Urinary frequency: Code(s): R35.0 - Frequency of micturition Status: Acute Assessment and Plan: Urinary frequency was small volume suggestive of prostatism, UA unremarkable. Plan No further suggestions at this time. Cardiology will sign off. Please call if we can be of further assistance. Subjective Date/time seen: 08/03/23 17:54 Interval history: Patient admitted with anemia, but now with persistent hypotension and orthostasis. Has been hydrated, increased his p.o. fluid intake and sodium intake, and on midodrine 10 mg t.i.d.. 08/01/2023 added Florinef 0.1 mg q.d. and compression stockings. Serum cortisol level was normal. Date of service 08/03/2023: No dizziness but still orthostatic, SBP 80 mmHg standing. Tolerated physical therapy with blood pressures ranging from approximately 95-102 mmHg. Hemoglobin has declined to 7 over the last few days. Given some IV albumin for low serum protein and off IV fluids. Review of Systems Review of Systems: No chest pain or shortness of breath. SCrotal edema. C/o urinary frequency and small volumes. Doesn't like the food here. Exam Narrative: Sitting up in chair, no distress Const: General: cooperative, healthy appearing and comfortable; No confusion Orientation/consciousness: oriented to person, patient oriented x3 and No confusion HENMT: Mouth: Yes moist mucous membranes Eyes: General: appearance normal, both eyes and all related structures EOM: EOMs intact bilaterally Neck: Neck: supple Resp: Effort & Inspection: normal respiratory effort Auscultation: clear to auscultation bilaterally Cardio: Rate: regular rate Rhythm: regular rhythm Heart sounds: no murmurs GI: Inspection: normal to inspection GI Palp: No abdominal tenderness Skin: General skin exam: normal color and no rashes or lesions noted Neuro: General: oriented to person, patient oriented x3 and No confusion Extrem: Right lower extremity: edema Left lower extremity: edema Other: Trace edema of the legs which are elevated, mild upper extremity edema as well. Psych: Appearance: grossly normal Mental Status: mental status grossly normal Objective Data Vital Signs Vital Signs: Vital Signs - 24 hr 08/02/23 19:59 08/02/23 19:59 08/02/23 20:03 Temperature 98.1 F Pulse Rate 66 73 Respiratory Rate 16 Blood Pressure 104/50 L 104/50 L 94/46 L Pulse Oximetry 99 Oxygen Delivery 08/02/23 20:06 08/03/23 04:39 08/02/23 22:17 Temperature 98.4 F Pulse Rate 96 73 Respiratory Rate 16
[2023-08-04] VITALS (10 sets, daily range): BP systolic 80–106; BP diastolic 41–66; PULSE 70–95; RESP 16–20; TEMP 36.3–37.1; O2SAT 97–100; BMI 33.4
[2023-08-04 05:49] LABS: Eosinophils Absolute Auto 0.1 K/mm3 (0-0.3); Eosinophils Percent Auto 1.8 % (0-4.4); Immature Granulocyte Absolute 0.02 K/mm3 (0.00-0.031); Immature Granulocyte Percent A 0.5 % (0-0.5); Lymphocytes Percent Auto 27.8 % (18.3-44.2); Mean Corpuscular HGB Conc 31.8 g/dl (32-36); Mean Corpuscular Hemoglobin 30.8 pg (26-34); Mean Corpuscular Volume 96.9 fl (80-100); Mean Platelet Volume 10.6 fl (7.4-10.4); Monocytes Absolute Auto 0.4 K/mm3 (0.1-0.6); Monocytes Percent Auto 9.6 % (2.6-8.5); Neutrophils Absolute Auto 2.3 K/mm3 (1.3-6.7); Neutrophils Percent Auto 59.3 % (45.5-73.1); Platelet Count Result 203 k/mm3 (150-375); Red Blood Count 2.27 M/mm3 (4.6-6.20); Red Cell Distribution Width 17.4 % (11.5-14.5)
[2023-08-04 06:05] LABS: Alanine Aminotransferase 16 U/L (6-50); Albumin Level 2.2 g/dL (3.5-5.1); Alkaline Phosphatase 60 U/L (38-126); Anion Gap 2 mmol/L (8-16); Aspartate Amino Transferase 32 U/L (17-59); Bilirubin Indirect 1.9 mg/dL (0-1.1); Bilirubin,Total 2.3 mg/dL (0.2-1.3); Blood Urea Nitrogen 9 mg/dL (9-20); Calcium 7.3 mg/dL (8.4-10.2); Carbon Dioxide 21 mmol/L (22-30); Chloride 107 mmol/L (98-107); Estimated CRCL calculation 123 ml/min; Estimated Glomerular Filt Rate > 60; Glucose 80 mg/dL (65-110); Potassium 3.3 mmol/L (3.4-5.0); Sodium 130 mmol/L (137-145)
[2023-08-04 07:27] LABS: Phosphorus 3.2 mg/dL (2.5-4.5)
[2023-08-04] MEDS: FLUDROCORTISONE ACETATE 0.1 MG TABLET PO (09:33)
[2023-08-04] MEDS: CYANOCOBALAMIN 1,000 MCG TABLET 1000 MCG PO (09:33)
[2023-08-04] MEDS: THIAMINE HCL 100 MG TABLET PO (09:34)
[2023-08-04] MEDS: PANTOPRAZOLE 40 MG TABLET PO ×2 (09:34→20:29)
[2023-08-04] MEDS: FOLIC ACID 1 MG TABLET PO (09:34)
[2023-08-04] MEDS: MIDODRINE HCL 2.5 MG TABLET 10 MG PO ×3 (09:34→17:28)
[2023-08-04] MEDS: SODIUM BICARBONATE TAB 650 MG TABLET PO ×2 (09:34→17:28)
[2023-08-04] MEDS: POTASSIUM CHLORIDE 20 MEQ ER TABLET 40 MEQ PO (09:41)
--- NOTE | 2023-08-04 10:33 | PM.PNNEP ---
Progress Note: A&P Assessment and Plan (1) Hypotension: Code(s): I95.9 - Hypotension, unspecified Status: Acute Assessment and Plan: persistent since admission and with current interventions complicated by symptomatic orthostasis etiology not entirely clear element of autonomic dysfunction(?) evaluation noted: TSH low but free T4 okay cortisol okay low albumin -- possible low effective circulating volume continue midodrine. florinef, and Colby hose stockings repeat IV albumin and consider scheduled dosing consider diuretics for edema but doubt will tolerate given BP issues follow orthostatic BP and symptoms Not mujsh else to really add -- will continue to follow from a distance. Subjective Date/time seen: 08/04/23 10:33 Interval history: Follow-up for orthostatic hypotension. Scrotal edema persists but no worse at this time; eating and drinking well; no other aute issues/events noted overnight or earlier this morning; no apparent distress. Exam Narrative: General: WD/WN male in NAD Heart: normal S1 and S2; no rub Lungs: clear to auscultation Abdomen: soft, nontender, nondistended, positive bowel sounds; + scrotal edema Extremities: no cyanosis or clubbing; trace edema Skin: no rash or nodules Objective Data Vital Signs Vital Signs: Vital Signs Temp Pulse Resp BP Pulse Ox O2 Del Method 08/04/23 09:17 80 86/50 L 08/04/23 09:16 92 100/54 L 08/04/23 08:00 70 106/66 08/04/23 04:50 97.4 F L 70 20 90/50 L 98 08/03/23 21:25 Room Air 08/03/23 20:49 98.7 F 101 H 20 76/42 L 100 08/03/23 20:48 98.7 F 83 20 99/50 L 100 08/03/23 20:55 98.7 F 69 20 100/54 L 100 08/03/23 20:00 98.7 F 69 20 100/54 L 100 Intake/Output Intake/Output: Intake & Output 08/01/23 08/02/23 08/03/23 08/04/23 23:59 23:59 23:59 23:59 Intake Total 6060 4500 1340 730 Output Total 1385 5025 4450 1600 Balance 3934 -525 -3110 -870 Meds/Results Medications: Active Medications Generic Name Dose Route Start Last Admin Trade Name Alvin PRN Reason Stop Dose Admin Amoxicillin 1,000 mg 08/04/23 21:00 Amoxicillin 500 Mg Capsule PO 08/18/23 20:59 Q12HR [facility] Clarithromycin 500 mg 08/04/23 21:00 Clarithromycin 500 Mg Tablet PO 08/18/23 09:01 Q12HR [facility] Cyanocobalamin 1,000 mcg 07/25/23 09:00 08/04/23 09:33 Cyanocobalamin 1,000 Mcg Tablet PO 1,000 mcg QAM JEOVANY Administration Fludrocortisone Acetate 0.1 mg 08/01/23 16:25 08/04/23 09:33 Fludrocortisone Acetate 0.1 Mg Tablet PO 0.1 mg DAILY@0800 JEOVANY Administration Folic Acid 1 mg 07/24/23 09:00 08/04/23 09:34 Folic Acid 1 Mg Tablet PO 1 mg DAILY JEOVANY Administration Albumin Human 100 mls @ 60 mls/hr 08/04/23 12:00 08/04/23 12:27 Albutein IVPB 08/05/23 07:39 60 mls/hr Q6HR JEOVANY Administration Midodrine 10 mg 07/31/23 13:00 08/04/23 12:43 Midodrine Hcl 2.5 Mg Tablet PO 10 mg TID JEOVANY Administration Pantoprazole Sodium 40 mg 08/02/23 21:00 08/04/23 09:34 Pantoprazole 40 Mg Tablet PO 40 mg Q12HR JEOVANY Administration Sodium Bicarbonate 650 mg 08/03/23 09:30 08/04/23 09:34 Sodium Bicarbonate Tab 650 Mg Tablet PO 650 mg BID JEOVANY Administration Thiamine HCl 100 mg 07/24/23 09:00 08/04/23 09:34 Thiamine Hcl 100 Mg Tablet PO 100 mg QAM JEOVANY Administration Radiology Results: ITS Impressions Chest X-Ray 07/23/23 15:40 IMPRESSION: 1. No acute cardiopulmonary disease. Abdomen/Pelvis CT 07/23/23 16:09 IMPRESSION: 1. No acute intra-abdominal/pelvic process. 2. Diffuse hepatic steatosis. Lower Extremity CTA 07/23/23 19:33 IMPRESSION: 1. Small amount of scattered atherosclerotic plaque in the arteries of the pelvis in the bilateral lower limbs with no discrete hemodynamically significant stenosis. 2. The right peroneal and left anterior tibial arteries become atretic i
--- NOTE | 2023-08-04 10:33 | P.PNNP_ITS ---
Progress Note: A&P Assessment and Plan (1) Hypotension: Code(s): I95.9 - Hypotension, unspecified Status: Acute Assessment and Plan: * persistent since admission and with current interventions * complicated by symptomatic orthostasis * etiology not entirely clear * element of autonomic dysfunction(?) * evaluation noted: * TSH low but free T4 okay * cortisol okay * low albumin -- possible low effective circulating volume * continue midodrine. florinef, and Colby hose stockings * repeat IV albumin and consider scheduled dosing * consider diuretics for edema but doubt will tolerate given BP issues * follow orthostatic BP and symptoms Not mujsh else to really add -- will continue to follow from a distance. Subjective Date/time seen: 08/04/23 10:33 Interval history: Follow-up for orthostatic hypotension. Scrotal edema persists but no worse at this time; eating and drinking well; no o ther aute issues/events noted overnight or earlier this morning; no apparent distress. Exam Narrative: General: WD/WN male in NAD Heart: normal S1 and S2; no rub Lungs: clear to auscultation Abdomen: soft, nontender, nondistended, positive bowel sounds; + scrotal edema Extremities: no cyanosis or clubbing; trace edema Skin: no rash or nodules Objective Data Vital Signs Vital Signs: Vital Signs Temp Pulse Resp BP Pulse Ox O2 Del Method 08/04/23 09:17 80 86/50 L 08/04/23 09:16 92 100/54 L 08/04/23 08:00 70 106/66 08/04/23 04:50 97.4 F L 70 20 90/50 L 98 08/03/23 21:25 Room Air 08/03/23 20:49 98.7 F 101 H 20 76/42 L 100 08/03/23 20:48 98.7 F 83 20 99/50 L 100 08/03/23 20:55 98.7 F 69 20 100/54 L 100 08/03/23 20:00 98.7 F 69 20 100/54 L 100 Intake/Output Intake/Output: Intake & Output 08/01/23 08/02/23 08/03/23 08/04/23 23:59 23:59 23:59 23:59 Intake Total 6060 4500 1340 730 Output Total 8145 5025 4450 1600 Balance 1585 -525 -3110 -870 Meds/Results Medications: Active Medications Generic Name Dose Route Start Last Admin Trade Name Alvin PRN Reason Stop Dose Admin Amoxicillin 1,000 mg 08/04/23 21:00 Amoxicillin 500 Mg Capsule PO 08/18/23 20:59 Q12HR JEOVANY Clarithromycin 500 mg 08/04/23 21:00 Clarithromycin 500 Mg Tablet PO 08/18/23 09:01 Q12HR JEOVANY Cyanocobalamin 1,000 mcg 07/25/23 09:00 08/04/23 09:33 Cyanocobalamin 1,000 Mcg Tablet PO 1,000 mcg QAM JEOVANY Administration Fludrocortisone Acetate 0.1 mg 08/01/23 16:25 08/04/23 09:33 Fludrocortisone Acetate 0.1 Mg Tablet PO 0.1 mg DAILY@0800 JEOVANY Administration Folic Acid 1 mg 07/24/23 09:00 08/04/23 09:34 Folic Acid 1 Mg Tablet PO 1 mg DAILY JEOVANY Administration Albumin Human 100 mls @ 60 mls/hr 08/04/23 12:00 08/04/23 12:27 Albutein IVPB 08/05/23 07:39 60 mls/hr Q6HR JEOVANY Administration Midodrine 10 mg 07/31/23 13:00 08/04/23 12:43 Midodrine Hcl 2.5 Mg Tablet PO 10 mg TID JEOVANY Administration Pantoprazole Sodium 40 mg 08/02/23 21:00 08/04/23 09:34 Pantoprazole
--- NOTE | 2023-08-04 10:45 | PCOTNOTE ---
PT just finished with Patient. Reported Patient having very low blood pressures. Patient unable to be seen at this time.
--- NOTE | 2023-08-04 12:22 | PM.IMPN ---
Progress Note: A&P Assessment and Plan (1) Hypotension: Code(s): I95.9 - Hypotension, unspecified Status: Acute Assessment and Plan: Patient was hypotensive on admission. He had some improvement possibly related to the transfusion. Patient again became hypotensive. MAP has been okay. Fluid bolus given. BP improved. Recurrent hypotension requiring IVF boluses, Midodrine and Florinef Still hypotensive despite Midodrine and Florinef. Cortisol levels okay. TSH low but FT4 normal. Was on NS 250ml/hr LA elevated related to hypoperfusion? Albumin was low at 1.7 causing third spacing and suspect low effective circulating volume. He is eating well. Diet changed. Dietary conult to try to improve nutrition. UA showing negative protein (but may have reached a low level that not measured in urine). 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 Protein losing enteropathy can be from erosive gastritis and ulcers; Hpylori. Discussed with nephrology. Fluids stopped and Albumin x 1 given 08/02 and 08/03. BP better but having scrotal edema now. Continue Midodrine and Florinef. Continue Colby hose. Continue Scrotal elevation. Repeat albumin Q6h x 4. (2) Acute blood loss anemia: Code(s): D62 - Acute posthemorrhagic anemia Status: Acute Assessment and Plan: Baseline hemoglobin unclear but suspected to be normal since patient presumably has no medical problems. No baseline hemoglobin to compare. Hemoglobin was 8.6 on admission and dropped to 7.3 requiring transfusion. Iron studies with low iron and low TIBC and normal TSat and ferritin to suggest acute blood loss. Acute blood loss related to the extensive bruising to the legs and from GI bleed. B12 low end of normal and folate frankly low at 2.0. Folate ordered. Suspect related to malnutrition. B12 being replaced. Hgb dropped from 9.7 after transfusion on 07/30 to 7.4. Could be related to IV fluids. IV fluids stopped. Hgb unchanged today Daily HH and transfuse as needed Monitor (3) Lactic acidosis: Code(s): E87.20 - Acidosis, unspecified Status: Acute Assessment and Plan: Lactic acid was 4.7 on admission. Lactic has trended downward but still elevated UA noted. UCx negative. Abx stopped IV fluids but now stopped LA was elevated but normal after repeat since BP improved. Suspect hypoperfusion causing lactic acidosis. (4) Bacteremia: Code(s): R78.81 - Bacteremia Status: Acute Assessment and Plan: BCx positive for Staph Epi (1of2). Likely contaminant Restart vanc due to possible bacteremia but MRSA negative so vancomycin stopped Completed 8 day course of Rocephin Repeat bld cx negative. Off all abx now (5) Ulcerative esophagitis: Code(s): K22.10 - Ulcer of esophagus without bleeding Status: Acute Assessment and Plan: Patient presents emergency room with complaints of shortness of breath. He had an episode of nausea and vomiting x1 with coffee-ground emesis in the ED. Hemoglobin 8.6 on admission and dropped to 7.3. He was hypotensive with lactic acidosis. He was given IV fluids and 1U PRBC on 07/23. His baseline hemoglobin is unknown. No further episodes of nausea and vomiting. He was started on Protonix and octreotide. GI consulted and patient underwent EGD 07/24 showing severe ulcerative esophagitis, diffuse gastritis and several superficial gastric ulcers. Biopsy taken. Path showing acute and chronic gastritis without metaplasia. Hpylori was positive. Discussed with GI - plan to add Biaxin and Amox. Continue PPI. Hgb dropped again to 6.9 and received 2U PRBC on 07/30. Monitor HH Continue Protonix. Appreciate GI input. (6) Electrolyte abnormality: Code(s): E87.8 - Other disorders of electrolyte and fluid balance, not elsewhere classified Status: Acute Assessment and Plan: Sodium low at 130's but stable. Non gap metabolic acidosis which could be related to lactic acidosis. He
[2023-08-04] MEDS: ALBUMIN HUMAN 25% 25 GM/100 ML 100 ML IVPB ×3 (12:27→23:42)
--- NOTE | 2023-08-04 14:25 | PC.NURSE ---
On 08/04/23, the student, [Eric Bentley], provided care and completed [email or web address] documentation on this patient. I have reviewed the student's documentation and agree with the findings.
[2023-08-04] MEDS: AMOXICILLIN 500 MG CAPSULE 1000 MG PO (20:29)
[2023-08-04] MEDS: CLARITHROMYCIN 500 MG TABLET PO (20:29)
[2023-08-05] VITALS (12 sets, daily range): BP systolic 78–124; BP diastolic 42–63; PULSE 64–89; RESP 16–20; TEMP 36.4–37.1; O2SAT 98–100
[2023-08-05] MEDS: ALBUMIN HUMAN 25% 25 GM/100 ML 100 ML IVPB (06:01)
[2023-08-05 06:10] LABS: Eosinophils Absolute Auto 0.1 K/mm3 (0-0.3); Immature Granulocyte Absolute 0.02 K/mm3 (0.00-0.031); Immature Granulocyte Percent A 0.7 % (0-0.5); Lymphocytes Absolute Auto 0.95 K/mm3 (0.9-3.2); Lymphocytes Percent Auto 32.2 % (18.3-44.2); Mean Corpuscular HGB Conc 31.6 g/dl (32-36); Mean Corpuscular Hemoglobin 30.7 pg (26-34); Mean Platelet Volume 10.7 fl (7.4-10.4); Monocytes Absolute Auto 0.3 K/mm3 (0.1-0.6); Monocytes Percent Auto 8.5 % (2.6-8.5); Neutrophils Absolute Auto 1.6 K/mm3 (1.3-6.7); Neutrophils Percent Auto 55.6 % (45.5-73.1); Platelet Count Result 173 k/mm3 (150-375); Red Blood Count 1.99 M/mm3 (4.6-6.20); Red Cell Distribution Width 17.4 % (11.5-14.5)
[2023-08-05 06:13] LABS: Alanine Aminotransferase 15 U/L (6-50); Albumin Level 2.5 g/dL (3.5-5.1); Alkaline Phosphatase 57 U/L (38-126); Anion Gap 5 mmol/L (8-16); Aspartate Amino Transferase 30 U/L (17-59); Bilirubin,Total 2.6 mg/dL (0.2-1.3); Blood Urea Nitrogen 13 mg/dL (9-20); Calcium 7.5 mg/dL (8.4-10.2); Carbon Dioxide 23 mmol/L (22-30); Chloride 105 mmol/L (98-107); Estimated CRCL calculation 123 ml/min; Estimated Glomerular Filt Rate > 60; Glucose 82 mg/dL (65-110); Potassium 3.4 mmol/L (3.4-5.0); Sodium 133 mmol/L (137-145)
[2023-08-05 06:52] LABS: Hematocrit 19.3 % (42.0-52.0)
[2023-08-05 06:53] LABS: Hemoglobin 6.1 g/dL (14.0-18.0)
[2023-08-05 06:54] LABS: Anisocytosis 1+ (NORMAL); Hypochromasia 2+ (NORMAL); Platelet Estimate Adequate (Adequate)
[2023-08-05 06:56] LABS: Schistocytes Rare (NORMAL)
--- NOTE | 2023-08-05 09:58 | PM.IMPN ---
Progress Note: A&P Assessment and Plan (1) Hypotension: Code(s): I95.9 - Hypotension, unspecified Status: Acute Assessment and Plan: Patient was hypotensive on admission. He had some improvement possibly related to the transfusion. Patient again became hypotensive. MAP has been okay. Fluid bolus given. BP improved. Recurrent hypotension requiring IVF boluses, Midodrine and Florinef Still hypotensive despite Midodrine and Florinef. Cortisol levels okay. TSH low but FT4 normal. Was on NS 250ml/hr LA elevated related to hypoperfusion? Albumin was low at 1.7 causing third spacing and suspect low effective circulating volume. He is eating well. Diet changed. Dietary conult to try to improve nutrition. UA showing negative protein (but may have reached a low level that not measured in urine). 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 Protein losing enteropathy can be from erosive gastritis and ulcers; Hpylori; celiac disease Discussed with nephrology. Fluids stopped and Albumin x 1 given 08/02 and 08/03. BP better but having scrotal edema now. Continue Midodrine and Florinef. Continue Colby hose. Continue Scrotal elevation. Completed albumin Q6h x 4. Albumin this morning is 2.5 now. Check BP in all 4 extremities (2) Acute blood loss anemia: Code(s): D62 - Acute posthemorrhagic anemia Status: Acute Assessment and Plan: Baseline hemoglobin unclear but suspected to be normal since patient presumably has no medical problems. No baseline hemoglobin to compare. Hemoglobin was 8.6 on admission and dropped to 7.3 requiring transfusion. Iron studies with low iron and low TIBC and normal TSat and ferritin to suggest acute blood loss. Acute blood loss related to the extensive bruising to the legs and from GI bleed. B12 low end of normal and folate frankly low at 2.0. Folate ordered. Suspect related to malnutrition. B12 being replaced. Hgb dropped from 9.7 after transfusion on 07/30 to 7.4. Could be related to IV fluids. IV fluids stopped. Hgb drifted down to 6.1 today Could be remobilizing fluids with the albumin causing dilutional anemia. No acute blood loss noted. Check CT abd to exclude psoas bleed. Transfuse 2U PRBC. Lasix after first unit if BP okay. HH Q6 hr after transfusion (3) Lactic acidosis: Code(s): E87.20 - Acidosis, unspecified Status: Acute Assessment and Plan: Lactic acid was 4.7 on admission. UA noted. UCx negative. Abx stopped IV fluids but now stopped LA was elevated but normal after repeat since BP improved. Suspect hypoperfusion causing lactic acidosis. Bicarb added for persistent metabolic acidosis and now better. (4) Bacteremia: Code(s): R78.81 - Bacteremia Status: Acute Assessment and Plan: BCx positive for Staph Epi (1of2). Likely contaminant Restart vanc due to possible bacteremia but MRSA negative so vancomycin stopped Completed 8 day course of Rocephin Repeat bld cx negative. Off all abx now (5) Ulcerative esophagitis: Code(s): K22.10 - Ulcer of esophagus without bleeding Status: Acute Assessment and Plan: Patient presents emergency room with complaints of shortness of breath. He had an episode of nausea and vomiting x1 with coffee-ground emesis in the ED. Hemoglobin 8.6 on admission and dropped to 7.3. He was hypotensive with lactic acidosis. He was given IV fluids and 1U PRBC on 07/23. His baseline hemoglobin is unknown. No further episodes of nausea and vomiting. He was started on Protonix and octreotide. GI consulted and patient underwent EGD 07/24 showing severe ulcerative esophagitis, diffuse gastritis and several superficial gastric ulcers. Biopsy taken. Path showing acute and chronic gastritis without metaplasia. Hpylori was positive. Discussed with GI - plan to add Biaxin and Amox x 2 weeks. Continue PPI. Hgb dropped o 6.9 and received 2U PRBC on 07/30. Hgb dropped again to 6.1 today. Monitor HH post-t
[2023-08-05] MEDS: THIAMINE HCL 100 MG TABLET PO (10:24)
[2023-08-05] MEDS: AMOXICILLIN 500 MG CAPSULE 1000 MG PO ×2 (10:24→20:00)
[2023-08-05] MEDS: FOLIC ACID 1 MG TABLET PO (10:24)
[2023-08-05] MEDS: CLARITHROMYCIN 500 MG TABLET PO ×2 (10:24→20:01)
[2023-08-05] MEDS: FLUDROCORTISONE ACETATE 0.1 MG TABLET PO (10:24)
[2023-08-05] MEDS: MIDODRINE HCL 2.5 MG TABLET 10 MG PO ×3 (10:24→16:45)
[2023-08-05] MEDS: PANTOPRAZOLE 40 MG TABLET PO ×2 (10:25→20:01)
[2023-08-05] MEDS: SODIUM BICARBONATE TAB 650 MG TABLET PO ×2 (10:25→16:45)
[2023-08-05] MEDS: CYANOCOBALAMIN 1,000 MCG TABLET 1000 MCG PO (10:25)
[2023-08-05] MEDS: ACETAMINOPHEN 325 MG TABLET 650 MG PO (10:33)
[2023-08-05] MEDS: POTASSIUM CHLORIDE 20 MEQ ER TABLET 40 MEQ PO (10:36)
[2023-08-05 15:15] LABS: Appearance Urine Clear (Clear); Bacteria Urine None Seen /hpf; Bilirubin Urine 2+ (Negative); Color Urine Dark Yellow (Yellow); Glucose Urine UA Negative (Negative); Ketones Urine Trace mg/dL (Negative); Leukocyte Esterase Ur Trace LEU/UL (Negative); Need Manual Microscopic Reviewed; Nitrate Urine Positive (Negative); Non Pathogenic Casts 0-2; Protein Urine Trace mg/dL (Negative); Specific Grav Ur 1.024 (1.001-1.035); Squamous Epithelial Cell Urine None seen /hpf (Few); Urobilinogen Urine >=8.0 mg/dL (<2.0); WBC Urine 0-5 /hpf
[2023-08-05 15:16] LABS: Add Urine Microscopic? YES
[2023-08-05 17:57] LABS: Hematocrit 25.6 % (42.0-52.0); Hemoglobin 8.1 g/dL (14.0-18.0)
--- NOTE | 2023-08-05 18:23 | PC.NURSE ---
Called main lab to have second unit of blood cancelled per Dr. Martin. Main lab will cancel blood
[2023-08-06] VITALS (8 sets, daily range): BP systolic 76–107; BP diastolic 48–65; PULSE 72–94; RESP 16–20; TEMP 36.1–37; O2SAT 95–100
[2023-08-06 00:50] LABS: Hematocrit 25.9 % (42.0-52.0); Hemoglobin 8.1 g/dL (14.0-18.0)
[2023-08-06 06:08] LABS: Basophils Percent Auto 1.1 % (0.2-1.2); Eosinophils Absolute Auto 0.1 K/mm3 (0-0.3); Eosinophils Percent Auto 1.6 % (0-4.4); Hematocrit 25.3 % (42.0-52.0); Immature Granulocyte Absolute 0.02 K/mm3 (0.00-0.031); Immature Granulocyte Percent A 0.5 % (0-0.5); Lymphocytes Absolute Auto 0.91 K/mm3 (0.9-3.2); Lymphocytes Percent Auto 24.9 % (18.3-44.2); Mean Corpuscular HGB Conc 31.6 g/dl (32-36); Mean Corpuscular Hemoglobin 30.1 pg (26-34); Mean Corpuscular Volume 95.1 fl (80-100); Mean Platelet Volume 10.8 fl (7.4-10.4); Monocytes Absolute Auto 0.3 K/mm3 (0.1-0.6); Monocytes Percent Auto 8.7 % (2.6-8.5); Neutrophils Absolute Auto 2.3 K/mm3 (1.3-6.7); Neutrophils Percent Auto 63.2 % (45.5-73.1); Platelet Count Result 212 k/mm3 (150-375); Red Blood Count 2.66 M/mm3 (4.6-6.20); Red Cell Distribution Width 18.6 % (11.5-14.5); White Blood Count 3.7 K/mm3 (4.5-10.0)
[2023-08-06 07:25] LABS: Alanine Aminotransferase 17 U/L (6-50); Albumin Level 2.7 g/dL (3.5-5.1); Alkaline Phosphatase 65 U/L (38-126); Anion Gap 5 mmol/L (8-16); Aspartate Amino Transferase 40 U/L (17-59); Bilirubin,Total 2.9 mg/dL (0.2-1.3); Blood Urea Nitrogen 16 mg/dL (9-20); Calcium 7.7 mg/dL (8.4-10.2); Carbon Dioxide 23 mmol/L (22-30); Chloride 105 mmol/L (98-107); Estimated CRCL calculation 146 ml/min; Estimated Glomerular Filt Rate > 60; Glucose 82 mg/dL (65-110); Phosphorus 2.3 mg/dL (2.5-4.5); Potassium 3.7 mmol/L (3.4-5.0); Sodium 133 mmol/L (137-145)
[2023-08-06] MEDS: POTASSIUM/PHOSPHORUS/SODIUM 1.5 GM PACKET 1 PACKET PO (10:07)
[2023-08-06] MEDS: PANTOPRAZOLE 40 MG TABLET PO ×2 (10:08→20:28)
[2023-08-06] MEDS: THIAMINE HCL 100 MG TABLET PO (10:08)
[2023-08-06] MEDS: CLARITHROMYCIN 500 MG TABLET PO ×2 (10:08→20:28)
[2023-08-06] MEDS: CYANOCOBALAMIN 1,000 MCG TABLET 1000 MCG PO (10:08)
[2023-08-06] MEDS: AMOXICILLIN 500 MG CAPSULE 1000 MG PO ×2 (10:08→20:28)
[2023-08-06] MEDS: FOLIC ACID 1 MG TABLET PO (10:08)
[2023-08-06] MEDS: SODIUM BICARBONATE TAB 650 MG TABLET PO ×2 (10:08→18:39)
[2023-08-06] MEDS: FLUDROCORTISONE ACETATE 0.1 MG TABLET PO (10:08)
--- NOTE | 2023-08-06 12:03 | P.PNIM_ITS ---
Progress Note: A&P Assessment and Plan (1) Hypotension: Code(s): I95.9 - Hypotension, unspecified Status: Acute Assessment and Plan: Patient was hypotensive on admission. He had some improvement possibly related to the transfusion. Patient again became hypotensive. MAP has been okay. Fluid bolus given. BP improved. COVID negative on 07/23 Recurrent hypotension requiring IVF boluses, Midodrine and Florinef Still hypotensive despite Midodrine and Florinef. Cortisol levels okay. TSH low but FT4 normal. Was on NS 250ml/hr LA elevated related to hypoperfusion? Albumin was low at 1.7 causing third spacing and suspect low effective circulating volume. He is eating well. Diet changed. Dietary consult to try to improve nutrition. UA showing negative protein (but may have reached a low level that not measured in urine). 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 Protein losing enteropathy can be from erosive gastritis and ulcers; Hpylori; celiac disease Discussed with nephrology. Fluids stopped and Albumin x 1 given 08/02 and 08/03. BP better but having scrotal edema now. Continue Midodrine and Florinef. Continue Colby hose. Continue Scrotal elevation. Completed albumin Q6h x 4. Albumin this morning is 2.5 now. BP in all 4 extremities showing higher BP in the legs. CTA chest showing no subclavian stenosis. Advance Midodrine. (2) Acute blood loss anemia: Code(s): D62 - Acute posthemorrhagic anemia Status: Acute Assessment and Plan: Baseline hemoglobin unclear but suspected to be normal since patient presumably has no medical problems. No baseline hemoglobin to compare. Hemoglobin was 8.6 on admission and dropped to 7.3 requiring transfusion. Iron studies with low iron and low TIBC and normal TSat and ferritin to suggest acute blood loss. Acute blood loss related to the extensive bruising to the legs and from GI bleed. B12 low end of normal and folate frankly low at 2.0. Folate ordered. Suspect related to malnutrition. B12 being replaced. Hgb dropped from 9.7 after transfusion on 07/30 to 7.4. Could be related to IV fluids. IV fluids stopped. Hgb drifted down to 6.1 today Could be remobilizing fluids with the albumin causing dilutional anemia. No acute blood loss noted. Transfused 1U PRBC and repeat Hgb 8.1. Hgb stable in the 8 range. Follow (3) Lactic acidosis: Code(s): E87.20 - Acidosis, unspecified Status: Acute Assessment and Plan: Lactic acid was 4.7 on admission. UA noted. UCx negative. Abx stopped IV fluids but now stopped LA was elevated but normal after repeat since BP improved. Suspect hypoperfusion causing lactic acidosis. Bicarb added for persistent metabolic acidosis and now better. (4) Bacteremia: Code(s): R78.81 - Bacteremia Status: Acute Assessment and Plan: BCx positive for Staph Epi (1of2). Likely contaminant Restart vanc due to possible bacteremia but MRSA negative so vancomycin stopped Completed 8 day course of Rocephin Repeat bld cx negative. Off all abx now (5) Ulcerative esophagitis: Code(s): K22.10 - Ulcer of esophagus without bleeding Status: Acute Assessment and Plan: Patient presents emergency room with complaints of shortness of breath. He had an episode of nausea and vomiting x1 with coffee-ground emesis in the ED. Hemoglobin 8.6 on admission and dropped to 7.3. He was hypotensive with lactic acidosis. He was given IV fluids and 1U PRBC on 07/23. His baseline hemoglobin is unknown. No further episodes of nausea and vomiting. He was started on Protonix and octreotide. GI consulted and
[2023-08-07] VITALS (7 sets, daily range): BP systolic 80–143; BP diastolic 45–106; PULSE 70–83; RESP 14–20; TEMP 36.6–37.2; O2SAT 97–100
[2023-08-07 05:57] LABS: Basophils Percent Auto 0.5 % (0.2-1.2); Eosinophils Percent Auto 0.5 % (0-4.4); Hematocrit 26.2 % (42.0-52.0); Hemoglobin 8.3 g/dL (14.0-18.0); Immature Granulocyte Absolute 0.03 K/mm3 (0.00-0.031); Immature Granulocyte Percent A 0.8 % (0-0.5); Lymphocytes Absolute Auto 0.73 K/mm3 (0.9-3.2); Lymphocytes Percent Auto 19.8 % (18.3-44.2); Mean Corpuscular HGB Conc 31.7 g/dl (32-36); Mean Corpuscular Hemoglobin 30.4 pg (26-34); Mean Platelet Volume 10.7 fl (7.4-10.4); Monocytes Absolute Auto 0.3 K/mm3 (0.1-0.6); Monocytes Percent Auto 7.1 % (2.6-8.5); Neutrophils Absolute Auto 2.6 K/mm3 (1.3-6.7); Neutrophils Percent Auto 71.3 % (45.5-73.1); Platelet Count Result 225 k/mm3 (150-375); Red Blood Count 2.73 M/mm3 (4.6-6.20); Red Cell Distribution Width 18.7 % (11.5-14.5); White Blood Count 3.7 K/mm3 (4.5-10.0)
[2023-08-07 06:09] LABS: Alanine Aminotransferase 18 U/L (6-50); Albumin Level 2.5 g/dL (3.5-5.1); Alkaline Phosphatase 86 U/L (38-126); Anion Gap 8 mmol/L (8-16); Aspartate Amino Transferase 37 U/L (17-59); Bilirubin,Total 2.4 mg/dL (0.2-1.3); Blood Urea Nitrogen 14 mg/dL (9-20); Calcium 7.3 mg/dL (8.4-10.2); Carbon Dioxide 23 mmol/L (22-30); Chloride 102 mmol/L (98-107); Estimated CRCL calculation 146 ml/min; Estimated Glomerular Filt Rate > 60; Glucose 87 mg/dL (65-110); Phosphorus 2.3 mg/dL (2.5-4.5); Potassium 3.3 mmol/L (3.4-5.0); Sodium 133 mmol/L (137-145)
[2023-08-07 06:16] LABS: Immunoglobulin A 314 mg/dL (70-400); Immunoglobulin G 645 mg/dL (700-1600); Immunoglobulin M 110 mg/dL (40-230)
[2023-08-07 07:23] LABS: INR 1.3; Prothrombin Time 16.4 Seconds (11.1-14.7)
[2023-08-07 07:24] LABS: Partial Thromboplastin Time 35.1 SECONDS (22.3-36.8)
[2023-08-07] MEDS: THIAMINE HCL 100 MG TABLET PO (08:51)
[2023-08-07] MEDS: CLARITHROMYCIN 500 MG TABLET PO ×2 (08:51→20:39)
[2023-08-07] MEDS: FOLIC ACID 1 MG TABLET PO (08:51)
[2023-08-07] MEDS: CYANOCOBALAMIN 1,000 MCG TABLET 1000 MCG PO (08:51)
[2023-08-07] MEDS: PANTOPRAZOLE 40 MG TABLET PO ×2 (08:52→20:39)
[2023-08-07] MEDS: FLUDROCORTISONE ACETATE 0.1 MG TABLET PO (08:52)
[2023-08-07] MEDS: AMOXICILLIN 500 MG CAPSULE 1000 MG PO ×2 (08:52→20:39)
[2023-08-07] MEDS: SODIUM BICARBONATE TAB 650 MG TABLET PO ×2 (08:52→16:07)
[2023-08-07] MEDS: POTASSIUM CHLORIDE 20 MEQ ER TABLET 40 MEQ PO (08:53)
--- NOTE | 2023-08-07 10:53 | PM.IMPN ---
Progress Note: A&P Assessment and Plan (1) Hypotension: Code(s): I95.9 - Hypotension, unspecified Status: Acute Assessment and Plan: Patient was hypotensive on admission. He had some improvement possibly related to the transfusion. Patient again became hypotensive. MAP has been okay. Fluid bolus given. BP improved. COVID negative on 07/23 Recurrent hypotension requiring IVF boluses, Midodrine and Florinef Still hypotensive despite Midodrine and Florinef. Cortisol levels okay. TSH low but FT4 normal. Was on NS 250ml/hr LA elevated related to hypoperfusion? Albumin was low at 1.7 causing third spacing and suspect low effective circulating volume. He is eating well. Diet changed. Dietary consult to try to improve nutrition. UA showing negative protein (but may have reached a low level that not measured in urine). 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 Protein losing enteropathy can be from erosive gastritis and ulcers; Hpylori; celiac disease Discussed with nephrology. Fluids stopped and Albumin x 1 given 08/02 and 08/03. BP better but having scrotal edema now. Continue Midodrine and Florinef. Continue Colby hose. Continue Scrotal elevation. Completed albumin Q6h x 4. Albumin this morning is 2.5 now. BP in all 4 extremities showing higher BP in the legs. CTA chest showing no subclavian stenosis. Midodrine advanced. Increase activity as toelrated. (2) Acute blood loss anemia: Code(s): D62 - Acute posthemorrhagic anemia Status: Acute Assessment and Plan: Baseline hemoglobin unclear but suspected to be normal since patient presumably has no medical problems. No baseline hemoglobin to compare. Hemoglobin was 8.6 on admission and dropped to 7.3 requiring transfusion. Iron studies with low iron and low TIBC and normal TSat and ferritin to suggest acute blood loss. Acute blood loss related to the extensive bruising to the legs and from GI bleed. B12 low end of normal and folate frankly low at 2.0. Folate ordered. Suspect related to malnutrition. B12 being replaced. Hgb dropped from 9.7 after transfusion on 07/30 to 7.4. Could be related to IV fluids. IV fluids stopped. Hgb drifted down to 6.1 today Could be remobilizing fluids with the albumin causing dilutional anemia. No acute blood loss noted. Transfused 1U PRBC and repeat Hgb 8.1. Hgb stable in the 8 range. Follow (3) Lactic acidosis: Code(s): E87.20 - Acidosis, unspecified Status: Acute Assessment and Plan: Lactic acid was 4.7 on admission. UA noted. UCx negative. Abx stopped IV fluids but now stopped LA was elevated but normal after repeat since BP improved. Suspect hypoperfusion causing lactic acidosis. Bicarb added for persistent metabolic acidosis and now better. (4) Bacteremia: Code(s): R78.81 - Bacteremia Status: Acute Assessment and Plan: BCx positive for Staph Epi (1of2). Likely contaminant Restart vanc due to possible bacteremia but MRSA negative so vancomycin stopped Completed 8 day course of Rocephin Repeat bld cx negative. Off all abx now (5) Ulcerative esophagitis: Code(s): K22.10 - Ulcer of esophagus without bleeding Status: Acute Assessment and Plan: Patient presents emergency room with complaints of shortness of breath. He had an episode of nausea and vomiting x1 with coffee-ground emesis in the ED. Hemoglobin 8.6 on admission and dropped to 7.3. He was hypotensive with lactic acidosis. He was given IV fluids and 1U PRBC on 07/23. His baseline hemoglobin is unknown. No further episodes of nausea and vomiting. He was started on Protonix and octreotide. GI consulted and patient underwent EGD 07/24 showing severe ulcerative esophagitis, diffuse gastritis and several superficial gastric ulcers. Biopsy taken. Path showing acute and chronic gastritis without metaplasia. Hpylori was positive. Discussed with GI - plan to add Biaxin and Amox x 2 weeks. Continue PP
--- NOTE | 2023-08-07 11:08 | PC.NURSE ---
attempting to pull midodrine, was able to pull 10mg out but not able to pull the rest. pharmacy made aware that midodrine not stocked via message due to no one answering. medication given per orders.
--- NOTE | 2023-08-07 15:15 | WPDGIPROGNO ---
Progress Note: A&P Assessment and Plan (1) Gastric ulcer: Code(s): K25.9 - Gastric ulcer, unspecified as acute or chronic, without hemorrhage or perforation Status: Acute Assessment and Plan: Patient with gastric ulcerations and esophagitis by recent imaging studies. I discussed this with Dr. Martin. Patient has a low albumin. These lesions would not be expected to lose protein long-term. Plan to check gastrin levels to exclude gastrinoma however gastrin level likely to be elevated secondary to PPI therapy. continued pantoprazole suggested. 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 Will continue PPI acid suppression long-term. (3) Ecchymosis: Code(s): R58 - Hemorrhage, not elsewhere classified Status: Acute (4) Low serum total protein level: Code(s): R79.89 - Other specified abnormal findings of blood chemistry Status: Acute Assessment and Plan: Low albumin of uncertain nature. Plan to obtain as fecal alpha-1 antitrypsin level to exclude protein losing enteropathy. Also will obtain laboratory testing for celiac disease with screening test as question celiac disease has been raised. (5) Alcoholism: Code(s): F10.20 - Alcohol dependence, uncomplicated Status: Acute Assessment and Plan: Patient currently avoiding alcohol. Subjective Date/time seen: 08/07/23 15:15 Interval history: Patient alert comfortable at present. Denies any bleeding. Tolerating diet with no heartburn. No discomfort. Patient remains in the hospital with workup for hypoalbuminemia. Blood pressure continues to remain low. He was transfused on several occasions. Final biopsies of the stomach revealed that he does indeed have H pylori. Now started on triple therapy for H pylori. Review of Systems Review of Systems: Review of systems noncontributory. Exam Narrative: Physical exam reveals patient be alert comfortable at rest. Lying in bed. HEENT exam unremarkable. Lungs are clear. Heart without murmur. Abdomen bowel sounds present soft nontender. Some pedal edema noted scrotal edema noted. Objective Data Vital Signs Vital Signs: Vital Signs - 24 hr 08/06/23 20:00 08/06/23 20:10 08/06/23 20:10 Temperature Pulse Rate 72 84 Respiratory Rate Blood Pressure 107/50 L 100/50 L Pulse Oximetry Oxygen Delivery Room Air 08/06/23 20:10 08/06/23 20:10 08/07/23 04:20 Temperature 98.3 F 97.9 F Pulse Rate 91 72 72 Respiratory Rate 18 14 Blood Pressure 87/48 L 89/45 L Pulse Oximetry 99 99 Oxygen Delivery 08/06/23 21:32 08/07/23 08:00 08/07/23 09:09 Temperature 97.9 F Pulse Rate 75 Respiratory Rate 18 Blood Pressure 80/48 L Pulse Oximetry 99 98 97 Oxygen Delivery Autopap Room Air 08/07/23 09:35 08/07/23 09:00 08/07/23 13:36 Temperature 98.9 F 98.4 F Pulse Rate 83 78 Respiratory Rate 18 20 Blood Pressure 95/50 L 90/45 L Pulse Oximetry 99 100 Oxygen Delivery Room Air Intake/Output Intake/Output: Intake & Output 08/04/23 08/05/23 08/06/23 08/07/23 23:59 23:59 23:59 23:59 Intake Total 2266 2776 2558 980 Output Total 3395 1950 2615 2050 [facility] -[id number] Meds/Results Medications: Active Medications Generic Name Dose Route Start Last Admin Trade Name Jonyq PRN Reason Stop Dose Admin Acetaminophen 650 mg 08/05/23 06:58 08/05/23 10:33 Acetaminophen 325 Mg Tablet PO 650 mg Q6H PRN Administration Mild Pain (1-3) or Fever Amoxicillin 1,000 mg 08/04/23 21:00 08/07/23 08:52 Amoxicillin 500 Mg Capsule PO 08/18/23 20:59 1,000 mg Q12HR JEOVANY Administration Clarithromycin 500 mg 08/04/23 21:00 08/07/23 08:51 Clarithromycin 5
--- NOTE | 2023-08-07 16:04 | PC.NURSE ---
Care, assessment and medications performed by Sadia Haider Student Nurse/[facility] under direct supervision of nursing professor and hospital staff. Charting reviewed and agree with same. Asked patient if any concerns. Patient states he has no concerns and no questions at this time.
[2023-08-08] VITALS (8 sets, daily range): BP systolic 78–93; BP diastolic 44–54; PULSE 66–95; RESP 14–20; TEMP 36.3–36.9; O2SAT 20–100
[2023-08-08 06:47] LABS: Hematocrit 27.5 % (42.0-52.0); Hemoglobin 8.5 g/dL (14.0-18.0); Mean Corpuscular HGB Conc 30.9 g/dl (32-36); Mean Corpuscular Hemoglobin 30.6 pg (26-34); Mean Corpuscular Volume 98.9 fl (80-100); Mean Platelet Volume 10.9 fl (7.4-10.4); Platelet Count Result 235 k/mm3 (150-375); Red Blood Count 2.78 M/mm3 (4.6-6.20); Red Cell Distribution Width 18.7 % (11.5-14.5); White Blood Count 3.9 K/mm3 (4.5-10.0)
[2023-08-08 06:48] LABS: Basophils Percent Auto 0.3 % (0.2-1.2); Eosinophils Absolute Auto 0.1 K/mm3 (0-0.3); Eosinophils Percent Auto 2.8 % (0-4.4); Immature Granulocyte Absolute 0.03 K/mm3 (0.00-0.031); Immature Granulocyte Percent A 0.8 % (0-0.5); Lymphocytes Absolute Auto 0.73 K/mm3 (0.9-3.2); Lymphocytes Percent Auto 18.9 % (18.3-44.2); Monocytes Absolute Auto 0.3 K/mm3 (0.1-0.6); Monocytes Percent Auto 8.5 % (2.6-8.5); Neutrophils Absolute Auto 2.7 K/mm3 (1.3-6.7); Neutrophils Percent Auto 68.7 % (45.5-73.1)
[2023-08-08 07:03] LABS: Alanine Aminotransferase 18 U/L (6-50); Albumin Level 2.5 g/dL (3.5-5.1); Alkaline Phosphatase 71 U/L (38-126); Anion Gap 7 mmol/L (8-16); Aspartate Amino Transferase 35 U/L (17-59); Bilirubin,Total 2.1 mg/dL (0.2-1.3); Blood Urea Nitrogen 17 mg/dL (9-20); Calcium 7.5 mg/dL (8.4-10.2); Carbon Dioxide 23 mmol/L (22-30); Chloride 102 mmol/L (98-107); Estimated CRCL calculation 145 ml/min; Estimated Glomerular Filt Rate > 60; Glucose 90 mg/dL (65-110); Potassium 3.5 mmol/L (3.4-5.0); Sodium 132 mmol/L (137-145)
[2023-08-08] MEDS: FOLIC ACID 1 MG TABLET PO (08:35)
[2023-08-08] MEDS: CLARITHROMYCIN 500 MG TABLET PO ×2 (08:36→20:20)
[2023-08-08] MEDS: SODIUM BICARBONATE TAB 650 MG TABLET PO ×2 (08:36→16:50)
[2023-08-08] MEDS: AMOXICILLIN 500 MG CAPSULE 1000 MG PO ×2 (08:36→20:19)
[2023-08-08] MEDS: PANTOPRAZOLE 40 MG TABLET PO ×2 (08:36→20:20)
[2023-08-08] MEDS: FLUDROCORTISONE ACETATE 0.1 MG TABLET 0.2 MG PO (08:36)
[2023-08-08] MEDS: CYANOCOBALAMIN 1,000 MCG TABLET 1000 MCG PO (08:37)
[2023-08-08] MEDS: THIAMINE HCL 100 MG TABLET PO (08:37)
[2023-08-08] MEDS: ACETAMINOPHEN 325 MG TABLET 650 MG PO (16:51)
--- NOTE | 2023-08-08 17:23 | PM.IMPN ---
Progress Note: A&P Assessment and Plan (1) Hypotension: Code(s): I95.9 - Hypotension, unspecified Status: Acute Assessment and Plan: Patient was hypotensive on admission. He had some improvement possibly related to the transfusion. Patient again became hypotensive. MAP has been okay. Fluid bolus given. BP improved. COVID negative on 07/23 Recurrent hypotension requiring IVF boluses, Midodrine and Florinef Still hypotensive despite Midodrine and Florinef. Cortisol levels okay. TSH low but FT4 normal. Was on NS 250ml/hr LA elevated related to hypoperfusion? Albumin was low at 1.7 causing third spacing and suspect low effective circulating volume. He is eating well. Diet changed. Dietary consult to try to improve nutrition. UA showing negative protein (but may have reached a low level that not measured in urine). 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 Protein losing enteropathy can be from erosive gastritis and ulcers; Hpylori; celiac disease Discussed with nephrology. Fluids stopped and Albumin x 1 given 08/02 and 08/03. BP better but having scrotal edema now. Continue Midodrine and Florinef. Continue Colby hose. Continue Scrotal elevation. Completed albumin Q6h x 4. Albumin this morning is 2.5 now. BP in all 4 extremities showing higher BP in the legs but CTA chest showing no subclavian stenosis. Midodrine advanced yesterday and will advance Florinef today. No change in BP to sitting position but still drops when he stands. Increase activity as tolerated (2) Acute blood loss anemia: Code(s): D62 - Acute posthemorrhagic anemia Status: Acute Assessment and Plan: Baseline hemoglobin unclear but suspected to be normal since patient presumably has no medical problems. No baseline hemoglobin to compare. Hemoglobin was 8.6 on admission and dropped to 7.3 requiring transfusion. Iron studies with low iron and low TIBC and normal TSat and ferritin to suggest acute blood loss. Acute blood loss related to the extensive bruising to the legs and from GI bleed. B12 low end of normal and folate frankly low at 2.0. Folate ordered. Suspect related to malnutrition. B12 being replaced. Hgb dropped from 9.7 after transfusion on 07/30 to 7.4. Could be related to IV fluids. IV fluids stopped. Hgb drifted down to 6.1 today Could be remobilizing fluids with the albumin causing dilutional anemia. No acute blood loss noted. Transfused 1U PRBC and repeat Hgb 8.1. Hgb stable in the 8 range. Follow (3) Lactic acidosis: Code(s): E87.20 - Acidosis, unspecified Status: Acute Assessment and Plan: Lactic acid was 4.7 on admission. UA noted. UCx negative. Abx stopped IV fluids but now stopped LA was elevated but normal after repeat since BP improved. Suspect hypoperfusion causing lactic acidosis. Bicarb added for persistent metabolic acidosis and now better. (4) Low serum total protein level: Code(s): R79.89 - Other specified abnormal findings of blood chemistry Status: Acute Assessment and Plan: As above. (5) Bacteremia: Code(s): R78.81 - Bacteremia Status: Acute Assessment and Plan: BCx positive for Staph Epi (1of2). Likely contaminant Restart vanc due to possible bacteremia but MRSA negative so vancomycin stopped Completed 8 day course of Rocephin Repeat bld cx negative. Off all abx now (6) Ulcerative esophagitis: Code(s): K22.10 - Ulcer of esophagus without bleeding Status: Acute Assessment and Plan: Patient presents emergency room with complaints of shortness of breath. He had an episode of nausea and vomiting x1 with coffee-ground emesis in the ED. Hemoglobin 8.6 on admission and dropped to 7.3. He was hypotensive with lactic acidosis. He was given IV fluids and 1U PRBC on 07/23. His baseline hemoglobin is unknown. No further episodes of nausea and vomiting. He was started on Protonix and octreotide. GI consulted and darin
[2023-08-09] VITALS (10 sets, daily range): BP systolic 86–98; BP diastolic 44–52; PULSE 70–79; RESP 16–18; TEMP 36.5–36.6; O2SAT 98–100
[2023-08-09 06:11] LABS: Basophils Percent Auto 0.9 % (0.2-1.2); Eosinophils Percent Auto 1.2 % (0-4.4); Hematocrit 26.6 % (42.0-52.0); Hemoglobin 8.6 g/dL (14.0-18.0); Immature Granulocyte Absolute 0.02 K/mm3 (0.00-0.031); Immature Granulocyte Percent A 0.6 % (0-0.5); Lymphocytes Absolute Auto 0.84 K/mm3 (0.9-3.2); Lymphocytes Percent Auto 24.9 % (18.3-44.2); Mean Corpuscular HGB Conc 32.3 g/dl (32-36); Mean Platelet Volume 10.4 fl (7.4-10.4); Monocytes Absolute Auto 0.4 K/mm3 (0.1-0.6); Monocytes Percent Auto 11.9 % (2.6-8.5); Neutrophils Percent Auto 60.5 % (45.5-73.1); Platelet Count Result 236 k/mm3 (150-375); Red Blood Count 2.77 M/mm3 (4.6-6.20); Red Cell Distribution Width 18.1 % (11.5-14.5); White Blood Count 3.4 K/mm3 (4.5-10.0)
[2023-08-09 06:37] LABS: Alanine Aminotransferase 19 U/L (6-50); Albumin Level 2.5 g/dL (3.5-5.1); Alkaline Phosphatase 81 U/L (38-126); Anion Gap 3 mmol/L (8-16); Aspartate Amino Transferase 38 U/L (17-59); Bilirubin,Total 1.8 mg/dL (0.2-1.3); Blood Urea Nitrogen 17 mg/dL (9-20); Calcium 7.6 mg/dL (8.4-10.2); Carbon Dioxide 27 mmol/L (22-30); Chloride 103 mmol/L (98-107); Estimated CRCL calculation 123 ml/min; Estimated Glomerular Filt Rate > 60; Glucose 87 mg/dL (65-110); Potassium 3.3 mmol/L (3.4-5.0); Sodium 133 mmol/L (137-145)
[2023-08-09] MEDS: CYANOCOBALAMIN 1,000 MCG TABLET 1000 MCG PO (08:26)
[2023-08-09] MEDS: FOLIC ACID 1 MG TABLET PO (08:26)
[2023-08-09] MEDS: CLARITHROMYCIN 500 MG TABLET PO ×2 (08:26→20:49)
[2023-08-09] MEDS: PANTOPRAZOLE 40 MG TABLET PO ×2 (08:26→20:49)
[2023-08-09] MEDS: SODIUM BICARBONATE TAB 650 MG TABLET PO ×2 (08:26→16:57)
[2023-08-09] MEDS: THIAMINE HCL 100 MG TABLET PO (08:26)
[2023-08-09] MEDS: FLUDROCORTISONE ACETATE 0.1 MG TABLET 0.2 MG PO (08:27)
[2023-08-09] MEDS: AMOXICILLIN 500 MG CAPSULE 1000 MG PO ×2 (08:27→20:48)
--- NOTE | 2023-08-09 09:02 | P.PNIM_ITS ---
Progress Note: A&P Assessment and Plan (1) Hypotension: Code(s): I95.9 - Hypotension, unspecified Status: Acute Assessment and Plan: Patient was hypotensive on admission. He had some improvement possibly related to the transfusion. Patient again became hypotensive. MAP has been okay. Fluid bolus given. BP improved. COVID negative on 07/23 Recurrent hypotension requiring IVF boluses, Midodrine and Florinef Still hypotensive despite Midodrine and Florinef. Cortisol levels okay. TSH low but FT4 normal. Was on NS 250ml/hr LA elevated related to hypoperfusion? Albumin was low at 1.7 causing third spacing and suspect low effective circulating volume. He is eating well. Diet changed. Dietary consult to try to improve nutrition. UA showing negative protein (but may have reached a low level that not measured in urine). 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 Protein losing enteropathy can be from erosive gastritis and ulcers; Hpylori; celiac disease Discussed with nephrology. Fluids stopped and Albumin x 1 given 08/02 and 08/03. BP better but having scrotal edema now. Continue Midodrine and Florinef. Continue Colby hose. Continue Scrotal elevation. Completed albumin Q6h x 4. Albumin this morning is 2.5 now. BP in all 4 extremities showing higher BP in the legs but CTA chest showing no subclavian stenosis. Midodrine advanced yesterday and will advance Florinef today. No change in BP to sitting position but still drops when he stands. Increase activity as tolerated (2) Acute blood loss anemia: Code(s): D62 - Acute posthemorrhagic anemia Status: Acute Assessment and Plan: Baseline hemoglobin unclear but suspected to be normal since patient presumably has no medical problems. No baseline hemoglobin to compare. Hemoglobin was 8.6 on admission and dropped to 7.3 requiring transfusion. Iron studies with low iron and low TIBC and normal TSat and ferritin to suggest acute blood loss. Acute blood loss related to the extensive bruising to the legs and from GI bleed. B12 low end of normal and folate frankly low at 2.0. Folate ordered. Suspect related to malnutrition. B12 being replaced. Hgb dropped from 9.7 after transfusion on 07/30 to 7.4. Could be related to IV fluids. IV fluids stopped. Hgb drifted down to 6.1 today Could be remobilizing fluids with the albumin causing dilutional anemia. No acute blood loss noted. Transfused 1U PRBC and repeat Hgb 8.1. Hgb stable in the 8 range. Follow (3) Lactic acidosis: Code(s): E87.20 - Acidosis, unspecified Status: Acute Assessment and Plan: Lactic acid was 4.7 on admission. UA noted. UCx negative. Abx stopped IV fluids but now stopped LA was elevated but normal after repeat since BP improved. Suspect hypoperfusion causing lactic acidosis. Bicarb added for persistent metabolic acidosis and now better. (4) Low serum total protein level: Code(s): R79.89 - Other specified abnormal findings of blood chemistry Status: Acute Assessment and Plan: As above. (5) Bacteremia: Code(s): R78.81 - Bacteremia Status: Acute Assessment and Plan: BCx positive for Staph Epi (1of2). Likely contaminant Restart vanc due to possible bacteremia but MRSA negative so vancomycin stopped Completed 8 day course of Rocephin Repeat bld cx negative. Off all abx now (6) Ulcerative esophagitis: Code(s): K22.10 - Ulcer of esophagus without bleeding Status: Acute Assessment and Plan: Patient presents emergency room with complaints of shortness of breath. He foster
--- NOTE | 2023-08-09 11:29 | PCNFU ---
Nutrition Follow-Up Complete: Altered nutrition related lab values related to suboptimal intake, possible protein losing enteropathy or liver disease as evidenced by labs, pt report of poor intake at home and alcohol use. Goal: Adequate PO intake at least 75% meals and supplements Maintain weight Patient is meeting goal. No new goal at this time. Pt current nutrition is Soft and Bite Sized, Level 6. Last recorded weight is 100.2 kg, up from 99.7 kg on admit. Bowel Motility: +BM reported 08/08 Labs Reviewed:Cr 0.6,K 3.3,Alb 2.5,Hct 26.6,Hgb 8.6 Meds Noted:Protonix, Folic Acid, Vit B12 Skin:WNL Additional Notes: Patient remains on a Soft and Bite Sized, Level 6 diet with Ensure Enlive BID. Oral Intake has been good, 80-100% reported. Diet supplements providing an additional 350 kcals and 20 gms protein. Agree with diet orders. Monitor intakes, labs, weight, supplement tolerance, plan of care Follow up in 7 days
[2023-08-10 05:51] VITALS: BP 98/48; PULSE 73; RESP 16; TEMP 36.8; O2SAT 98
[2023-08-10 06:08] LABS: Basophils Percent Auto 0.9 % (0.2-1.2); Eosinophils Absolute Auto 0.1 K/mm3 (0-0.3); Eosinophils Percent Auto 2.1 % (0-4.4); Hematocrit 26.5 % (42.0-52.0); Hemoglobin 8.4 g/dL (14.0-18.0); Immature Granulocyte Absolute 0.02 K/mm3 (0.00-0.031); Immature Granulocyte Percent A 0.6 % (0-0.5); Lymphocytes Absolute Auto 0.98 K/mm3 (0.9-3.2); Lymphocytes Percent Auto 28.7 % (18.3-44.2); Mean Corpuscular HGB Conc 31.7 g/dl (32-36); Mean Corpuscular Hemoglobin 31.1 pg (26-34); Mean Corpuscular Volume 98.1 fl (80-100); Mean Platelet Volume 10.3 fl (7.4-10.4); Monocytes Absolute Auto 0.4 K/mm3 (0.1-0.6); Monocytes Percent Auto 10.9 % (2.6-8.5); Neutrophils Absolute Auto 1.9 K/mm3 (1.3-6.7); Neutrophils Percent Auto 56.8 % (45.5-73.1); Platelet Count Result 228 k/mm3 (150-375); White Blood Count 3.4 K/mm3 (4.5-10.0)
[2023-08-10 06:31] LABS: Alanine Aminotransferase 20 U/L (6-50); Albumin Level 2.6 g/dL (3.5-5.1); Alkaline Phosphatase 84 U/L (38-126); Anion Gap 6 mmol/L (8-16); Aspartate Amino Transferase 37 U/L (17-59); Bilirubin,Total 1.7 mg/dL (0.2-1.3); Blood Urea Nitrogen 16 mg/dL (9-20); Calcium 7.6 mg/dL (8.4-10.2); Carbon Dioxide 25 mmol/L (22-30); Chloride 103 mmol/L (98-107); Estimated CRCL calculation 148 ml/min; Estimated Glomerular Filt Rate > 60; Glucose 87 mg/dL (65-110); Potassium 3.2 mmol/L (3.4-5.0); Sodium 134 mmol/L (137-145)
[2023-08-10] MEDS: FOLIC ACID 1 MG TABLET PO (08:47)
[2023-08-10] MEDS: FLUDROCORTISONE ACETATE 0.1 MG TABLET 0.2 MG PO (08:47)
[2023-08-10] MEDS: PANTOPRAZOLE 40 MG TABLET PO (08:47)
[2023-08-10] MEDS: CLARITHROMYCIN 500 MG TABLET PO (08:47)
[2023-08-10] MEDS: CYANOCOBALAMIN 1,000 MCG TABLET 1000 MCG PO (08:47)
[2023-08-10] MEDS: SODIUM BICARBONATE TAB 650 MG TABLET PO (08:47)
[2023-08-10] MEDS: AMOXICILLIN 500 MG CAPSULE 1000 MG PO (08:47)
[2023-08-10] MEDS: THIAMINE HCL 100 MG TABLET PO (08:47)
[2023-08-10 09:00] VITALS: BP 90/46; PULSE 74; RESP 16; TEMP 36.8; O2SAT 99
--- NOTE | 2023-08-10 13:17 | PC.NURSE ---
On 08/10/23, the student, [Becki Shepherd], provided care and completed [facility] documentation on this patient. I have reviewed the student's documentation and agree with the findings.
[2023-08-10 14:05] VITALS: BP 101/52; PULSE 70; RESP 16; TEMP 36.7; O2SAT 97
[2023-08-10 14:50] VITALS: BP 108/50; PULSE 69; RESP 18; TEMP 36.6; O2SAT 100
[2023-08-10 19:49] LABS: Immunoglobulin A 303 mg/dL (70-320); TTG IGA AB <1.0 U/mL (<15.0)
[2023-08-11 20:40] LABS: Immunoglobulin A 371 mg/dL (70-320); TTG IGA AB <1.0 U/mL (<15.0)
[2023-08-12 12:45] LABS: Gastrin 41 pg/mL (<=100)
== END 2023-08-10 14:50 | disposition home or self-care (01) | DRG 663 ==
LOC: ANHED 15:44 → ANHIMU 20:24 → ANH2MED 07-25 22:46
PROVIDERS: Internal Medicine Cardiovascular Disease; Internal Medicine Gastroenterology; Physician Assistant; Admitting Provider Internal Medicine; Emergency Provider General Practice; Visit Provider Student in an Organized Health Care Education/Training Program
PROC: 0DJ08ZZ Inspection of Upper Intestinal Tract, Via Natural or Artificial Opening Endoscopic (ICD-10-PCS; CPT 43235; principal; 2023-07-24 15:30)
DX: D62 Acute posthemorrhagic anemia (principal); K21.01 Gastro-esophageal reflux disease with esophagitis, with bleeding; E87.20 Acidosis, unspecified; R78.81 Bacteremia; E87.1 Hypo-osmolality and hyponatremia; K92.0 Hematemesis; I95.9 Hypotension, unspecified; K76.0 Fatty (change of) liver, not elsewhere classified; K25.3 Acute gastric ulcer without hemorrhage or perforation; E80.6 Other disorders of bilirubin metabolism; E87.6 Hypokalemia; B96.81 Helicobacter pylori [H. pylori] as the cause of diseases classified elsewhere; R23.3 Spontaneous ecchymoses; R35.0 Frequency of micturition; R60.0 Localized edema; F10.20 Alcohol dependence, uncomplicated; F17.210 Nicotine dependence, cigarettes, uncomplicated; Z20.822 Contact with and (suspected) exposure to COVID-19
CPT/HCPCS: 36415; 36430; 36600; 71045; 71275; 73706; 74177; 76705; 80048; 80053; 80202; 80307; 81001; 82103; 82248; 82274; 82375; 82533; 82550; 82607; 82728; 82746; 82784; 82805; 82941; 83010; 83050; 83540; 83550; 83605; 83615; 83735; 83880; 84100; 84132; 84145; 84439; 84443; 84480; 84484; 85014; 85018; 85025; 85610; 85730; 86140; 86364; 86850; 86880; 86900; 86901; 86923; 87040; 87077; 87081; 87086; 87177; 87186; 87209; 87635; 88305; 88342; 89055; 93005; 93922; 93970; 96361; 96374; 96375; 97110; 97161; 97165; 97168; 97530; 97535; 99285; A9270; C8929; C9113; J0696; J2001; J2354; J2371; J2704; J3370; J3420; J3475; J7030; J7040; J7050; J7120; P9016; P9047; Q9957; Q9967